=== PATIENT | female | born 1945 | race Caucasian/White ===

== ENCOUNTER → 2022-06-11 14:44 | Outpatient (CLI) | payer MEDICARE, BC, SELFPAY ==
[2022-06-11 16:02] LABS: Adenovirus F 40/41, stool Not Detected (NotDetected); Astrovirus Not Detected (NotDetected); Campylobacter Not Detected (NotDetected); Clostridium Difficile A/B, PCR Not Detected (NotDetected); Cryptosporidium Not Detected (NotDetected); Cyclospora Cayetanesis Not Detected (NotDetected); Entamoeba histolytica Not Detected (NotDetected); Enteroaggregative E coli Not Detected (NotDetected); Enteropathogenic E coli Not Detected (NotDetected); Enterotoxigenic E coli Not Detected (NotDetected); Giardia lamblia Not Detected (NotDetected); Norovirus Not Detected (NotDetected); Plesimonas Shigalloides, PCR Not Detected (NotDetected); Rotavirus A Not Detected (NotDetected); Salmonella, PCR Not Detected (NotDetected); Sapovirus Not Detected (NotDetected); Shiga-like toxin E coli Not Detected (NotDetected); Shigella Enterovasive E coli Not Detected (NotDetected); Vibrio Cholerae Not Detected (NotDetected); Vibrio, PCR Not Detected (NotDetected); Yersinia Entercolitica, PCR Not Detected (NotDetected)
== END ==
PROVIDERS: PCP Nurse Practitioner Family; Visit Provider Nurse Practitioner Family
DX: R19.7 Diarrhea, unspecified (principal)
CPT/HCPCS: 87506

== ENCOUNTER 2022-06-14 11:59 | Emergency (ER) | payer MEDICARE, MEDICAID, SELFPAY ==
[2022-06-14] VITALS (20 sets, daily range): BP systolic 125–161; BP diastolic 58–93; PULSE 50–88; RESP 16–19; TEMP 36.6–37; O2SAT 92–98; BMI 31.8
--- NOTE | 2022-06-14 12:09 | CT_ITS ---
FINAL REPORT CLINICAL HISTORY: diffuse abdominal pain FINDINGS: CT OF THE ABDOMEN AND PELVIS WITH CONTRAST Axial CT images of the abdomen and pelvis were obtained after the administration of intravenous contrast. Coronal reformatted images were also obtained and reviewed.This study was performed with techniques to keep radiation doses as low as reasonably achievable (ALARA). Individualized dose reduction techniques using automated exposure control or adjustment of mA and/or kV according to the patient's size were employed. Abdomen: There is a small left pleural effusion. There is left lung base atelectasis.. The heart is normal in size. The liver has an a lobular contour of uncertain significance. There is a 5.5 cm lobular mass between the stomach and spleen containing multiple calcifications that is nonspecific. There has been cholecystectomy. The spleen is unremarkable. No adrenal mass is present. The pancreas has an unremarkable appearance. There are bilateral renal cysts. The aorta is normal in caliber. There is no free fluid or adenopathy. Pelvis: The appendix is not identified. There has been hysterectomy. There is a moderate amount of retained stool. The urinary bladder is unremarkable. No inflammatory process is seen. There is no evidence of mass or adenopathy. There is no evidence of bowel obstruction. IMPRESSION: Lobular mass between the stomach and spleen worrisome for neoplasm. Lobular contour of the liver of uncertain significance. Cirrhosis cannot be excluded. Bilateral renal cysts. Moderate retained stool. Reviewed, Interpreted and Dictated by Luis Armando Damico III, MD Transcribed by Kunal Vigil Authenticated and [facility]
--- NOTE | 2022-06-14 12:32 | PC.NURSE ---
calling [facility] for abd records
--- NOTE | 2022-06-14 12:35 | PC.NURSE ---
IV established and blood sent to the lab
--- NOTE | 2022-06-14 12:40 | PC.NURSE ---
spoke with nurse at [facility] who updated on specialist appts and update on care. notified
--- NOTE | 2022-06-14 12:42 | PC.NURSE ---
pt medicated per MAR
[2022-06-14 12:48] LABS: Basophils # 0.1 K/mm3 (0-0.2); Basophils % 1.1 % (0.1-2.0); Eosinophils # 0.4 K/mm3 (0.0-0.4); Eosinophils % 3.7 % (0.1-12.0); Hematocrit 40.7 % (37.0-47.0); Hemoglobin 12.8 g/dL (12.2-16.2); Lymphocytes % 19.6 % (10-50); Mean Corpuscular HGB Conc 31.4 g/dL (31.8-35.4); Mean Corpuscular Hemoglobin 26.6 pg (27.0-31.2); Mean Corpuscular Volume 84.9 fl (81-99); Mean Platelet Volume 10.8 fl (7.4-10.4); Monocytes # 0.4 K/mm3 (0.1-1.0); Monocytes % 3.7 % (1.7-9.3); Neutrophils # 7.5 K/mm3 (1.8-7.8); Neutrophils % 71.9 % (37.0-80.0); Platelet Count 266 K/mm3 (142-424); Red Blood Count 4.79 M/mm3 (4.20-5.40); Red Cell Distribution Width 14.8 % (11.5-17.5); White Blood Count 10.4 K/mm3 (4.8-10.8)
--- NOTE | 2022-06-14 12:59 | PC.NURSE ---
awaiting renal function for CT
[2022-06-14 13:25] LABS: Chloride 100 mmol/L (98-107); Potassium 5.3 mmoL/L (3.5-5.1); Sodium 137 mmol/L (136-145)
[2022-06-14 13:28] LABS: Alanine Aminotransferase 27 U/L (12-78); Albumin Level 3.8 g/dl (3.5-5.0); Albumin/Globulin Ratio 1.3 (1.1-1.8); Alkaline Phosphatase 121 U/L (38-126); Anion Gap 14.3 mEq/L (5-15); Aspartate Amino Transferase 42 U/L (14-36); Bilirubin,Total 0.2 mg/dl (0.2-1.3); Blood Urea Nitrogen 22 mg/dl (7-17); Calcium 8.8 mg/dl (8.4-10.2); Carbon Dioxide 28 mmol/L (22.0-30.0); Creatinine Clearance Estimated 62 mL/min (50-200); Estimated Glomerular Filt Rate 70 ml/min (>60); GFR (African American) 84 ML/MIN (>60); Glucose 280 mg/dl (74-100); Lipase 52 U/L (23-300); Total Protein,Serum 6.8 g/dl (6.3-8.2)
--- NOTE | 2022-06-14 13:39 | PC.NURSE ---
PT GOING TO CT VIA STRETCHER
--- NOTE | 2022-06-14 15:23 | HMH.EDGENADL ---
Discharge Plan Disposition Patient Disposition: Xfer SNF Condition: Good Prescriptions Prescriptions: New docusate sodium 250 mg capsule 250 mg PO DAILY Qty: 30 0RF polyethylene glycol 3350 [Miralax] 17 gram/dose powder 17 g PO DAILY Qty: 238 0RF Referrals Follow up/Referrals: Kavita Nicole MD [Staff Physician] - See instructions Armando Levi [Referring] - 7-14 days Alberta Costa APRN [Primary Care Provider] - 7-14 days Activity Restrictions/Add. Instructions Additional Instructions/Restrictions: Follow up with your PCP and Oncology (Dr. Nicole) for the stomach mass. Return with any concerns. Use the stool regimen for constipation Clinical Impressions Clinical Impression: Constipation, Intraabdominal mass Instructions Patient Instructions: Constipation (Alternative Therapy), Constipation Discharge ED Provider: Michelle Guy General Adult HPI General Chief complaint: Abdominal Pain Stated complaint: Abdominal Pain Time Seen by Provider: 06/14/22 12:10 Mode of Arrival: EMS Source of Information: Patient Limitations: No Limitations Description of Symptoms (Recalled from ER Triage Doc. by RN): pt to ed via ems c/o abd pain. pt states she has stomach cancer and was supposed to see the GI specialist today but her grandaughter couldn't take her so she wanted to come to [facility]. pt denies n/v/d. pt reports pain in her lower abd. History of Present Illness HPI narrative: The patient is a 77 year old female with a history of HTN who presents to the ED with abdominal pain. She states for the past 2-3 days shes had diffuse abdominal pain. Denies nausea or vomiting. She has been having normal bowel movements. Denies urinary symptoms. No chest pain or shortness of breath. No other symptoms. She has been told she has a stomach cancer but has not had follow up for that yet. Related Data Previous Rx's Medication Instructions Recorded docusate sodium 250 mg capsule 250 mg PO DAILY #30 caps 06/14/22 polyethylene glycol 3350 17 17 g PO DAILY #238 grams 06/14/22 gram/dose oral powder (Miralax) Allergies Allergy/AdvReac Type Severity Reaction Status Date / Time butorphanol [From Stadol] Allergy Verified 06/14/22 12:28 [facility] Medical History Dementia Diabetes GERD (gastroesophageal reflux disease) High cholesterol Hypertension Social History Smoking Status: Never smoker alcohol intake: never current occupational status: unemployed Travel in the last 8 weeks: None ROS Obtained: Yes Systems reviewed as appropriate & no additional complaints except as documented Physical Exam General General appearance: alert and in no apparent distress Head Head exam: atraumatic and normocephalic Eye Eye exam: Present normal appearance and EOMI ENT ENT exam: Present normal external ear exam Neck Neck exam: Present normal inspection Chest Chest inspection: Present normal inspection and symmetric chest wall rise Respiratory Respiratory exam: Present normal lung sounds bilaterally; Absent respiratory distress Cardiovascular Cardiovascular exam: Present regular rate and normal rhythm Abdominal Exam Abdominal exam: Present soft and tenderness; Absent distention, guarding, rebound or mass Abdominal tenderness: Present diffuse and mild Extremities Exam Extremities exam: Present normal inspection and full ROM Back Exam Back exam: Present normal inspection; Absent CVA tenderness (R) or CVA tenderness (L) Neurological Exam Neurological exam: Present alert, oriented X3 and CN II-XII intact Psychiatric Psychiatric exam: Present normal affect and normal mood Skin Skin exam: Present warm and dry Medical Decision Making Medical Records Medical records reviewed: Yes I reviewed the patient's medical records. Srinivas Inquiry Pt receiving controlled substance: No Vital Signs: 06/14/22 12:22
--- NOTE | 2022-06-14 19:23 | PC.NURSE ---
transport has been called for pt. ems reports they need pre-authorization before they can come get pt.
--- NOTE | 2022-06-14 20:56 | PC.NURSE ---
Pt family called and advised they would come and get pt POV. EMS notified.
== END 2022-06-14 21:42 ==
PROVIDERS: Emergency Provider Emergency Medicine; PCP Nurse Practitioner Family
DX: C16.9 Malignant neoplasm of stomach, unspecified (principal); K59.00 Constipation, unspecified; I10 Essential (primary) hypertension; K21.9 Gastro-esophageal reflux disease without esophagitis; E78.5 Hyperlipidemia, unspecified; E11.9 Type 2 diabetes mellitus without complications; F03.90 Unspecified dementia, unspecified severity, without behavioral disturbance, psychotic disturbance, mood disturbance, and anxiety; Z88.8 Allergy status to other drugs, medicaments and biological substances
CPT/HCPCS: 74177; 80053; 83690; 85025; 96374; 99285; J2405; Q9967

== ENCOUNTER → 2022-08-22 14:08 | Outpatient (CLI) | payer MEDICARE, MEDICAID, SELFPAY ==
--- NOTE | 2022-08-22 14:14 | XR_ITS ---
FINAL REPORT CLINICAL HISTORY: hip pain FINDINGS: Left hip Three views were obtained. There is no acute fracture or dislocation. There are moderate hypertrophic changes. There is flattening of the femoral head. There is subchondral sclerosis and osteophyte formation at the acetabular margin. IMPRESSION: Moderate to advanced hypertrophic changes of osteoarthritis. Reviewed, Interpreted and Dictated by Dany Cueva MD Transcribed by Violeta Sweeney Authenticated and [facility]
== END ==
PROVIDERS: PCP Emergency Medicine; Visit Provider Orthopaedic Surgery
DX: M25.552 Pain in left hip (principal)
CPT/HCPCS: 73502

== ENCOUNTER → 2022-09-04 06:22 | Outpatient (CLI) | payer MEDICARE, MEDICAID, SELFPAY ==
--- NOTE | 2022-09-04 06:23 | NM_ITS ---
APPROVED REPORT Exam: Nuclear Stress Test Indication: HTN, D.M., FM HX, SOB Patient Location: Outpatient Stress Tech: Dana Paris NM Tech:Mendy Vasquez, ARRT, RT (R)(N) Ht: 5 ft 0 in Wt: 180 lbs Bra Size: 38B HR: 65 bpm BP: 155/74 mmHg BSA: 1.78 m2 TID: 0.95 History: HTN, D.M., FM HX, SOB PT COULD NOT LAY IN PRONE POSITION DUE TO STROKE Procedure: Patient received a 0.4 mg of intravenous Lexiscan, resting heart rate 65 bpm, resting blood pressure 155/74 mmHg, with Lexiscan maximum heart rate achived was 99 bpm which is Less than 85 % of the maximum predicted heart rate and blood pressure was 178/76 mmHg. With Lexiscan, patient denied any complaint of chest pain. Electrocardiogram Resting electrocardiogram shows sinus rhythm, with Lexiscan there is less than 1.[address] segment depression noted from the baseline EKG. The EKG portion of the Lexiscan is nondiagnostic. Cardiac Stress and Resting SPECT Images: Cardiac Stress and Resting SPECT images were obtained using technetium 99m Myoview 32.4 mCi stress and 10.78 mCi at rest. Gated SPECT for analysis of segmental wall motion and calculation of the ejection fraction also done. Prone images were also obtained. Cardiac stress and rest SPECT images show uniform myocardial activity without segmental perfusion abnormality, computer derived ejection fraction is over 65% with no regional wall motion abnormality, right ventricle is normal size and contractility. Conclusion: 1. The EKG portion of the Lexiscan is nondiagnostic. 2. No scintigraphic evidence of reversible ischemia seen, computer derived ejection fraction is over 65% with no regional wall motion abnormality, right ventricle is normal size and contractility. 3. Normal Lexiscan Myoview study. Electronically signed by : Pranav Draper MD 09/04/2022 12:52:24
--- NOTE | 2022-09-04 06:23 | CA_ITS ---
APPROVED REPORT Exam: Pharmacologic Technologist: Trista Toledo, Ht: 4 ft 11 in Wt: 192 lbs BSA: 1.81 m2 HR: 67 bpm BP: 155/74 mmHg Medical History Medications: Omeprazole,,,,, Metoprolol,,,,, Lispro,,,,, Gabapentin,,,,, Atorvastatin,,,,, Benazepril,,,,, MiraLAX,,,,, LanTUS,,,,, DilTiazem,,,,, Apixaban,,,,, MonteKULAST,,,,, DApaqliflozin,,,,, Stress Test Details Test: LEXISCAN Reason for pharmacologic stress test: physical limitation. HR Resting HR: 66 bpm Max Heart Rate (APMHR): 144.318497 bpm Max HR Achieved: 99 bpm Target HR (85% APMHR): 122.176340 bpm % of APMHR: 68.75 Recovery HR: 84 bpm BP Resting BP: 155/74 mmHg Max BP: 178/76 mmHg Recovery BP: 146.0/74.0 mmHg ECG Resting ECG: NSR, low voltage QRS Clinical Exercise duration: 04:10 min Highest Stage Achieved: Exercise capacity: 1.0 METs Stress ECG Conclusion Symptoms: SOA, head discomfort. No CP. Arrhythmias/Ectopy: Occ PAC. ST-T Changes: No significant changes. Conclusion: Unremarkable Lexiscan stress. Myoview images reported separately. Test Summary REST 04:30 . . 66 . 155/ 74 . . Stage 1 01:00 . . 86 . . . . Stage 2 01:00 . . 93 . 164/ 81 . . Stage 3 01:00 . . 89 . . . . Stage 4 01:00 . . 83 . 178/ 76 . . Stage 4 01:10 . . 83 . 160/ 83 . Stop exercise at 04:10 RECOVERY 01:00 . . 83 . . . . RECOVERY 02:00 . . 85 . 157/ 81 . . RECOVERY 03:00 . . 81 . 157/ 81 . . RECOVERY 03:16 . . 81 . 146/ 74 . . Electronically signed by : Pranav Draper MD 09/04/2022 12:49:49
--- NOTE | 2022-09-04 08:12 | HMH.ITSHM ---
Current Home Medications as stated by this patient Angeli Spencer or escrow representative. []ATORVASTATIN BENAZEPRIL DILTIAZEM FARXIGA LANTUS LASIX MIRALAX MONTELUKAST OMEPRAZOLE POTASSIUM APIXABAN METOPROLOL GABAPENTIN HUMALOG GAVISCON ALBUTEROL LOPERAMIDE NOVOLIN
== END ==
PROVIDERS: PCP Nurse Practitioner Family; Visit Provider Physician Assistant
DX: E11.9 Type 2 diabetes mellitus without complications (principal); E78.00 Pure hypercholesterolemia, unspecified; I10 Essential (primary) hypertension; I48.0 Paroxysmal atrial fibrillation; I63.9 Cerebral infarction, unspecified; K21.9 Gastro-esophageal reflux disease without esophagitis; R19.00 Intra-abdominal and pelvic swelling, mass and lump, unspecified site; R60.9 Edema, unspecified; Z01.810 Encounter for preprocedural cardiovascular examination; Z79.4 Long term (current) use of insulin
CPT/HCPCS: 78452; 93017; A9502; J2785

== ENCOUNTER 2022-09-16 10:54 | Day surgery (SDC) | payer MEDICARE, MEDICAID, SELFPAY ==
[2022-09-16 11:19] VITALS: BP 169/99; PULSE 82; RESP 18; TEMP 36.4; O2SAT 95; BMI 38.7
--- NOTE | 2022-09-16 11:36 | EXP.ANES.CKL ---
[facility] Disclaimer: The information contained in this section may have been updated after the patient was seen, as this information can be updated by other users. Medical History (Updated 09/16/22 @ 11:43 by Gely Costa RN) Allergies Arthritis Cannot walk Cholecystectomy planned Dementia Diabetes Edema GERD (gastroesophageal reflux disease) High cholesterol History of COVID-19 Hypertension Kidney stone Stroke Urinary incontinence Surgical History (Updated 09/16/22 @ 11:43 by Gely Costa RN) History of appendectomy Hx of knee surgery Family History (Updated 09/16/22 @ 11:39 by Gely Costa RN) Other Hypertension Social History (Updated 09/16/22 @ 11:39 by Gely Costa RN) Smoking Status: Never smoker alcohol intake: never substance use type: denies use current occupational status: unemployed Travel in the last 8 weeks: None [facility] Anesthesia Checklist Patient Identification Patient Identification: Arm Band and Verbal (Name & ) Structural Data Admitted From: Home Planned Operative Procedure/s: Hip injection Consent for Planned Operative Procedure(s) Verified: Yes NPO Status Verified Time NPO: 00:00 Airway Assessment C-Spine Mobility Assessed: Yes TMJ Mobility Assessed: Yes Dentition: Poor Dentition Neurological Assessment Level of Consciousness: Awake Hx Seizures: No Numbness or tingling in extremities: No Anesthesia Plan Anesthesia Risk discussed: Yes Anesthesia Plan: Verified ASA Class: III Anesthesia Type: MAC
[2022-09-16 13:16] VITALS: BP 119/63; PULSE 74; RESP 18; TEMP 36.7; O2SAT 96
--- NOTE | 2022-09-16 13:20 | XR_ITS ---
FINAL REPORT CLINICAL HISTORY: HIP INJECTION IN OR ft: 1.24 FINDINGS: FLUORO TIME PROCEDURE: Right hip injection in OR FINDINGS: Fluoroscopy time was provided by the radiology department for the clinical service. One spot film was obtained. Fluoroscopy exposure time: 1.24 IMPRESSION: See above Reviewed, Interpreted and Dictated by Luis Armando Damico III, MD Transcribed by Sakina Grant Authenticated and [facility]
--- NOTE | 2022-09-16 13:27 | EXP.OP.NOTE ---
Date of procedure: 09/16/22 Pre-op Diagnosis:: Right hip osteoarthritis Post-op Diagnosis:: Same Procedure performed:: Right hip injection with arthrogram Surgeon:: Anthony Liang DO ADVERTISEMENT COMPOSITOR:: Dariana Young Anesthesia: MAC Estimated blood loss (mL): 0 Operative findings:: Severe end-stage osteoarthritis right hip Operative note:: Patient is identified preoperatively. Right hip marked yes my initials. Transferred operative suite. Placed upon on the radiolucent bed. Sedation given. Right hip prepped and draped in normal sterile fashion. Once prepped and draped final operative timeout performed to identify proper patient procedure and extremity. X-ray was brought into identify the right hip joint. 18-gauge spinal needle directed to the hip joint with proper trajectory. Arthrogram performed to confirm needle placement. Once confirmed 3 cc lidocaine 80 mg of Kenalog injected to the hip joint. Needle removed Band-Aid placed patient was taken to stepdown in stable condition. Condition: stable Disposition: PACU Complications:: None apparent
[2022-09-16 13:30] VITALS: BP 144/77; PULSE 71; RESP 18; O2SAT 97
[2022-09-16 13:45] VITALS: BP 139/74; PULSE 72; RESP 18; O2SAT 72
[2022-09-17 08:47] LABS: POC Glucose,Bedside 213 (70-110)
== END 2022-09-16 13:45 | disposition home or self-care (01) ==
PROVIDERS: PCP Emergency Medicine; Visit Provider Orthopaedic Surgery
PROC: (CPT 20610; principal; 2022-09-16 12:30)
DX: M16.11 Unilateral primary osteoarthritis, right hip (principal); E11.9 Type 2 diabetes mellitus without complications; Z79.4 Long term (current) use of insulin; I48.0 Paroxysmal atrial fibrillation; E78.5 Hyperlipidemia, unspecified; I10 Essential (primary) hypertension; Z79.01 Long term (current) use of anticoagulants; Z79.899 Other long term (current) drug therapy; F01.50 Vascular dementia, unspecified severity, without behavioral disturbance, psychotic disturbance, mood disturbance, and anxiety; I69.392 Facial weakness following cerebral infarction; I69.351 Hemiplegia and hemiparesis following cerebral infarction affecting right dominant side
CPT/HCPCS: 20610; 73502; 76000; 82962; 96374; Q9967

== ENCOUNTER → 2022-10-01 07:09 | Outpatient (CLI) | payer MEDICARE, MEDICAID, SELFPAY ==
[2022-10-01 08:30] LABS: Potassium 5.1 mmoL/L (3.5-5.1); Sodium 137 mmol/L (136-145)
[2022-10-01 08:31] LABS: Chloride 104 mmol/L (98-107)
[2022-10-01 08:33] LABS: Anion Gap 13.1 mEq/L (5-15); Blood Urea Nitrogen 38 mg/dl (7-17); Carbon Dioxide 25 mmol/L (22.0-30.0); Estimated Glomerular Filt Rate 81 ml/min (>60); GFR (African American) 98 ML/MIN (>60)
[2022-10-01 08:34] LABS: Calcium 10.3 mg/dl (8.4-10.2); Glucose 277 mg/dl (74-100)
[2022-10-01 11:41] LABS: Microscopic, Urine URINE MICROSCOPIC (MICROSCOPIC)
[2022-10-01 12:35] LABS: Appearance,Urine CLOUDY (Clear); Bilirubin,Urine Negative (Negative); Blood, Urine 3+ (Negative); Color,Urine YELLOW (Yellow); Glucose,Urine (UA) 3+ (Negative); Ketones,Urine Negative (Negative); Leukocyte Esterase,Urine 2+ (Negative); Nitrate,Urine POSITIVE (Negative); PH,Urine 6.5 (5.0-8.5); Protein,Urine Negative (Negative); Urobilinogen,Urine 0.2 EU/dl (0.2)
[2022-10-01 12:58] LABS: Bacteria,Urine 1+ /lpf; Squamous Epithelial Cell,Urine Occasional #/hpf (0-5); WBC,Urine 50-100 #/hpf (0-3); White Blood Cell Casts,Urine Occasional #/lpf (0)
== END ==
PROVIDERS: PCP Nurse Practitioner Family; Visit Provider Internal Medicine Adolescent Medicine
DX: I10 Essential (primary) hypertension (principal); N39.0 Urinary tract infection, site not specified; B96.1 Klebsiella pneumoniae [K. pneumoniae] as the cause of diseases classified elsewhere; B96.4 Proteus (mirabilis) (morganii) as the cause of diseases classified elsewhere
CPT/HCPCS: 80048; 81001; 87086; 87088; 87186

== ENCOUNTER → 2022-10-01 11:29 | Outpatient (CLI) | payer MEDICARE, MEDICAID, SELFPAY | PROVIDERS: PCP Internal Medicine Adolescent Medicine; Visit Provider Internal Medicine Adolescent Medicine | DX: I10 Essential (primary) hypertension (principal); N39.0 Urinary tract infection, site not specified ==

== ENCOUNTER → 2022-10-28 06:32 | Outpatient (CLI) | payer MEDICARE, MEDICAID, SELFPAY ==
--- NOTE | 2022-10-28 06:39 | CT_ITS ---
FINAL REPORT TECHNIQUE: Thin section axial images were obtained from the lung bases to the pubic symphysis without IV contrast. Coronal reconstruction images were obtained from the axial data. Exam was performed using dose reduction technique. CLINICAL HISTORY: GROSS HEMATURIA COMPARISON: 06/14/2022 FINDINGS: The lung bases are clear. The liver is nodular in contour consistent with cirrhosis. There is no focal hepatic lesion. The gallbladder is absent. The spleen, adrenal glands, and pancreas are without acute abnormality. There is a large staghorn calculus in the right kidney measuring 5.7 cm in axial dimension. There is mild hydronephrosis related to this calculus. There is no left renal stone or hydronephrosis. A soft tissue mass containing calcifications is seen between the stomach and splenic hilum. This is unchanged as compared to the prior exam. There is no small bowel obstruction. The appendix is not visualized but there are no secondary signs of appendicitis. There is a large amount of stool in the colon, particularly the rectum. There is mild rectal wall thickening which could represent stercoral colitis. The uterus is absent. There is no lymphadenopathy or ascites. No acute osseous abnormality is identified. IMPRESSION: Large staghorn calculus in the right kidney, new from the prior exam, causing hydronephrosis. Constipation and distal colonic wall thickening. Stercoral colitis is not excluded. Stable, partially calcified mass between this stomach and spleen may represent neoplasm such as GIST. Reviewed, Interpreted and Dictated by Amira Ortiz MD Transcribed by Trang Hogue Authenticated and [facility]
== END ==
PROVIDERS: PCP Internal Medicine Adolescent Medicine; Visit Provider Nurse Practitioner Family
DX: R31.0 Gross hematuria (principal)
CPT/HCPCS: 74176

== ENCOUNTER 2022-10-28 08:09 | Day surgery (SDC) | payer MEDICARE, MEDICAID, SELFPAY ==
[2022-10-28 08:33] VITALS: BP 174/121; PULSE 79; RESP 18; TEMP 36.6; O2SAT 96; BMI 38.7
[2022-10-28 09:09] LABS: POC Glucose,Bedside 198 (70-110)
--- NOTE | 2022-10-28 09:30 | EXP.ANES.CKL ---
[facility] Disclaimer: The information contained in this section may have been updated after the patient was seen, as this information can be updated by other users. Medical History Afib Allergies Aphasia Arthritis Cannot walk Cholecystectomy planned Constipation Dementia Diabetes Edema GERD (gastroesophageal reflux disease) High cholesterol History of COVID-19 Hypertension Kidney stone Obesity Stroke Urinary incontinence Vascular dementia Surgical History History of appendectomy Hx of knee surgery Family History Other Hypertension Social History Smoking Status: Never smoker alcohol intake: never substance use type: denies use current occupational status: unemployed Travel in the last 8 weeks: None [facility] Anesthesia Checklist Patient Identification Patient Identification: Arm Band Structural Data Admitted From: Home Planned Operative Procedure/s: Left Hip Injection under Fluoroscopy Consent for Planned Operative Procedure(s) Verified: Yes Verified Documents: Surgical Consent and History and Physical NPO Status Verified Time NPO: 00:00 Additional verifications Anesthesia Reactions: No Hx Blood Transfusions: No Blood Transfusion Reaction: No Airway Assessment C-Spine Mobility Assessed: Yes TMJ Mobility Assessed: Yes Dentition: Poor Dentition Neurological Assessment Level of Consciousness: Awake and Alert Anesthesia Plan Anesthesia Risk discussed: Yes Anesthesia Plan: Verified ASA Class: III Anesthesia Type: MAC
--- NOTE | 2022-10-28 10:48 | EXP.OP.NOTE ---
Date of procedure: 10/28/22 Pre-op Diagnosis:: Left hip end-stage osteoarthritis Post-op Diagnosis:: Same Procedure performed:: Left hip injection with arthrogram Surgeon:: Anthony Liang DO RETAIL PHARMACY MANAGER:: Mesfin Krueger Anesthesia: MAC Estimated blood loss (mL): 0 Clinical Note:: Patient underwent previous right hip injection with arthrogram and had good clinical results and wished to undergo left hip injection for therapeutic reasons secondary to end-stage osteoarthritis and not a candidate for total hip arthroplasty. Operative findings:: End-stage degenerative arthritis left hip Operative note:: Patient is identified preoperatively left hip marked yes my initials transported operative suite placed upon the radiolucent bed given sedation left hip was prepped and draped normal sterile fashion. Once prepped and draped final operative timeout performed to identify proper patient procedure and extremity. Everyone involved in case agreed. No counter indication to beginning. X-ray machine was brought into identify the hip joint. There was evidence of severe end-stage degenerative changes. Under direct visualization 18-gauge spinal needle was directed into the hip capsule. Contrast was used to confirm placement within the hip capsule. Initial injection site was low on the neck and extra-articular so the needle was repositioned and placed inside the capsule and contrast confirmed intra-articular placement of the needle and then 80 mg of Kenalog with 3 cc of 1% lidocaine was injected to the hip joint needle removed Band-Aid placed patient waken for sedation taken recovery in stable condition. Condition: stable Disposition: PACU Complications:: None apparent
[2022-10-28 10:50] VITALS: BP 125/85; PULSE 87; RESP 18; TEMP 36.3; O2SAT 97
--- NOTE | 2022-10-28 10:50 | XR_ITS ---
FINAL REPORT CLINICAL HISTORY: LEFT HIP INJECTION IN OR, ft 0.1min FINDINGS: FLUORO TIME PROCEDURE: Fluoroscopy in the operating room. FINDINGS: Fluoroscopy time was provided by the radiology department for the clinical service. 1 film lungs obtained for left hip injection. Fluoroscopy exposure time: 0.1 minute IMPRESSION: See above Reviewed, Interpreted and Dictated by Amira Ortiz MD Transcribed by Trang Hogue Authenticated and . [facility]
[2022-10-28 11:00] VITALS: BP 149/88; PULSE 87; RESP 18; O2SAT 96
[2022-10-28 11:10] VITALS: BP 133/93; PULSE 89; RESP 18; O2SAT 97
[2022-10-28 11:20] VITALS: BP 154/88; PULSE 86; RESP 18; O2SAT 98
== END 2022-10-28 11:21 | disposition home or self-care (01) ==
PROVIDERS: PCP Internal Medicine Adolescent Medicine; Visit Provider Orthopaedic Surgery
DX: M16.12 Unilateral primary osteoarthritis, left hip (principal); E11.9 Type 2 diabetes mellitus without complications; Z79.4 Long term (current) use of insulin; I10 Essential (primary) hypertension; Z86.16 Personal history of COVID-19; I48.91 Unspecified atrial fibrillation; Z79.01 Long term (current) use of anticoagulants; Z79.899 Other long term (current) drug therapy
CPT/HCPCS: 20610; 73502; 74176; 82962

== ENCOUNTER 2022-11-11 05:25 | Inpatient (IN) | payer MEDICARE, MEDICAID, SELFPAY ==
[2022-11-11] VITALS (7 sets, daily range): BP systolic 100–157; BP diastolic 50–98; PULSE 94–129; RESP 18–22; TEMP 36.4–39.9; O2SAT 93–98; BMI 28.3; BMI 32.4
--- NOTE | 2022-11-11 05:29 | XR_ITS ---
PROCEDURE INFORMATION: Exam: XR Chest Exam date and time: 11/11/2022 7:27 AM Age: 77 years old Clinical indication: Fever TECHNIQUE: Imaging protocol: Radiologic exam of the chest. Views: 1 view. COMPARISON: CT ABDOMEN PELVIS WO CON 10/28/2022 6:45 AM FINDINGS: Lungs: Lungs are well aerated without a focal area of consolidation. Pleural spaces: Unremarkable. No pleural effusion. No pneumothorax. Heart/Mediastinum: Unremarkable. No cardiomegaly. Bones/joints: Unremarkable. IMPRESSION: Lungs are well aerated without a focal area of consolidation.
[2022-11-11 05:41] LABS: Coronavirus 19, PCR Not Detected (NotDetected); Influenza A, PCR Not Detected (NotDetected); Influenza B, PCR Not Detected (NotDetected)
[2022-11-11 05:41] LABS: Microscopic, Urine URINE MICROSCOPIC (MICROSCOPIC)
[2022-11-11 05:43] LABS: Appearance,Urine CLOUDY (Clear); Bilirubin,Urine Negative (Negative); Blood, Urine 1+ (Negative); Color,Urine YELLOW (Yellow); Glucose,Urine (UA) 3+ (Negative); Ketones,Urine Negative (Negative); Leukocyte Esterase,Urine 2+ (Negative); Nitrate,Urine POSITIVE (Negative); Protein,Urine 2+ (Negative); Specific Gravity, Urine 1.015 (1.005-1.030); Urobilinogen,Urine 0.2 EU/dl (0.2)
[2022-11-11 06:09] LABS: Bacteria,Urine 3+ /lpf; WBC,Urine TNTC #/hpf (0-3)
[2022-11-11 06:10] LABS: Squamous Epithelial Cell,Urine Occasional #/hpf (0-5)
--- NOTE | 2022-11-11 06:21 | PC.NURSE ---
Rechecked pt condition. No needs voiced at this time. Call light within reach.
[2022-11-11 06:38] LABS: Basophils % 0.2 % (0.1-2.0); Eosinophils # 0.1 K/mm3 (0.0-0.4); Eosinophils % 0.6 % (0.1-12.0); Hematocrit 40.8 % (37.0-47.0); Hemoglobin 13.1 g/dL (12.2-16.2); Lymphocytes # 0.9 K/mm3 (0.7-4.5); Mean Corpuscular Volume 84.5 fl (81-99); Mean Platelet Volume 8.8 fl (7.4-10.4); Monocytes # 0.9 K/mm3 (0.1-1.0); Neutrophils # 16.1 K/mm3 (1.8-7.8); Neutrophils % 89.2 % (37.0-80.0); Platelet Count 284 K/mm3 (142-424); Red Blood Count 4.83 M/mm3 (4.20-5.40); Red Cell Distribution Width 15.3 % (11.5-17.5)
[2022-11-11 06:44] LABS: MANUAL DIFFERENTIAL MANUAL DIFFERENTIAL (MANUAL DIFF)
--- NOTE | 2022-11-11 06:44 | PC.NURSE ---
Dr. Baca at [facility] speaking with pt
[2022-11-11 06:47] LABS: Hypochromasia 1+; Lymphocytes % 6 % (10-50); Monocytes % 3 % (2-9); Neutrophils % 91 % (42-76); Platelet Estimate Normal; Total Cells Counted 100
[2022-11-11 06:49] LABS: Chloride 107 mmol/L (98-107); Potassium 4.2 mmoL/L (3.5-5.1); Sodium 138 mmol/L (136-145)
[2022-11-11 06:51] LABS: Alanine Aminotransferase 35 U/L (12-78); Amylase 49 U/L (30-110); Aspartate Amino Transferase 34 U/L (14-36); Blood Urea Nitrogen 34 mg/dl (7-17); Creatinine Clearance Estimated 42 mL/min (50-200); Estimated Glomerular Filt Rate 40 ml/min (>60); GFR (African American) 48 ML/MIN (>60)
[2022-11-11 06:52] LABS: Albumin Level 3.7 g/dl (3.5-5.0); Alkaline Phosphatase 152 U/L (38-126); Anion Gap 13.2 mEq/L (5-15); Bilirubin,Total 1.1 mg/dl (0.2-1.3); Calcium 9.1 mg/dl (8.4-10.2); Carbon Dioxide 22 mmol/L (22.0-30.0); Globulin 3.6 g/dL (1.3-3.2); Glucose 205 mg/dl (74-100); Lactic Acid 1.3 mmol/L (0.7-2.1); Lipase 53 U/L (23-300); Total Protein,Serum 7.3 g/dl (6.3-8.2)
[2022-11-11 06:57] LABS: C-Reactive Protein 47.7 mg/L (0-4); Erythrocyte Sedimentation Rate 13 mm/hr (0-30)
--- NOTE | 2022-11-11 07:04 | PC.NURSE ---
Dr. Baca speaking with Dr. Franks
--- NOTE | 2022-11-11 07:07 | HMH.EDNVD ---
Discharge Plan Disposition Patient Disposition: Admitted As Inpatient Chief Complaint: Nausea/Vomiting/Diarrhea Prescriptions Prescriptions: No Action furosemide [Lasix] 40 mg tablet 40 mg PO DAILY atorvastatin 40 mg tablet 40 mg PO HS insulin glargine [Lantus U-100 Insulin] 100 unit/mL solution 42 unit SQ HS diltiazem HCl 120 mg capsule,extended release 12 hr 120 mg PO ONCE omeprazole 20 mg capsule,delayed release(DR/EC) 20 mg PO DAILY montelukast 10 mg tablet 10 mg PO HS benazepril 10 mg tablet 10 mg PO DAILY Farxiga 10 mg tablet 10 mg PO DAILY Eliquis 5 mg tablet 5 mg PO BID metoprolol tartrate 75 mg tablet 75 mg PO BID gabapentin 400 mg capsule 400 mg PO TID insulin lispro [Humalog KwikPen Insulin] 100 unit/mL insulin pen 1 sliding scale dose SQ USEASDIRECTD acetaminophen [Tylenol] 325 mg Capsule 500 mg PO BID potassium chloride 20 mEq Tablet Extended Release 20 meq PO DAILY Rx Instructions: GIVE 2 TABLETSPO DAILY polyethylene glycol 3350 [Miralax] 17 gram/dose powder 17 g PO DAILY docusate sodium 250 mg capsule 250 mg PO DAILY Referrals Follow up/Referrals: Parish Franks MD [Primary Care Provider] - See instructions Clinical Impressions Clinical Impression: Diabetes, Acute UTI (urinary tract infection), SIRS (systemic inflammatory response syndrome) Instructions Patient Instructions: DI for Nausea -- Adult, DI for Nausea -- Child, DI for Diarrhea and Traveler's Diarrhea -- Adult, DI for Diarrhea and Traveler's Diarrhea -- Child Discharge ED Provider: Keven (ED)Jostin Nausea/Vomiting/Diarrhea HPI General Chief complaint: Nausea/Vomiting/Diarrhea Stated complaint: vomitting Time Seen by Provider: 11/11/22 06:40 Mode of Arrival: EMS Source of Information: EMS Limitations: No Limitations Description of Symptoms (Recalled from ER Triage Doc. by RN): per shelter pt was vomitting, fever, low o2 sats History of Present Illness HPI Narrative: sent from f with fever and vomiting complaint: vomiting Onset (ago): hour(s) Associated Abdominal Pain: No Severity: moderate Related Data Home Medications Medication Instructions Recorded Confirmed apixaban 5 mg tablet (Eliquis) 5 mg PO BID BLOOD THINER 08/08/22 10/31/22 atorvastatin 40 mg tablet 40 mg PO HS Cholesterol 08/08/22 10/31/22 benazepril 10 mg tablet 10 mg PO DAILY BP 08/08/22 10/31/22 dapagliflozin 10 mg tablet 10 mg PO DAILY Diabetes 08/08/22 10/31/22 (Farxiga) diltiazem HCl 120 mg 120 mg PO ONCE BP 08/08/22 10/31/22 capsule,extended release 12 hr furosemide 40 mg tablet (Lasix) 40 mg PO DAILY Fluid 08/08/22 10/31/22 gabapentin 400 mg capsule 400 mg PO TID Pain 08/08/22 10/31/22 insulin glargine 100 unit/mL 42 unit SQ HS Diabetes 08/08/22 10/31/22 subcutaneous solution (Lantus U-100 Insulin) insulin lispro 100 unit/mL 1 sliding scale dose SQ 08/08/22 10/31/22 subcutaneous pen (Humalog KwikPen USEASDIRECTD Diabetes (U-100) Insulin) metoprolol tartrate 75 mg tablet 75 mg PO BID BP 08/08/22 10/31/22 montelukast 10 mg tablet 10 mg PO HS ALLERGIES 08/08/22 10/31/22 omeprazole 20 mg capsule,delayed 20 mg PO DAILY GERD 08/08/22 10/31/22 release acetaminophen 325 mg capsule 500 mg PO BID Pain 09/16/22 10/31/22 (Tylenol) docusate sodium 250 mg capsule 250 mg PO DAILY BOWELS 09/16/22 10/31/22 polyethylene glycol 3350 17 17 g PO DAILY CONSTIPATION 09/16/22 10/31/22 gram/dose oral powder (Miralax) potassium chloride 20 mEq 20 meq PO DAILY Supplement 09/16/22 10/31/22 tablet,extended release Allergies Allergy/AdvReac Type Severity Reaction Status Date / Time butorphanol [From Stadol] Allergy Anxiety Verified 10/31/22 10:23 [facility] Disclaimer: The information contained in this section may have been updated after the patient was seen, as this information can be updated by other users.
[2022-11-11 07:15] LABS: Procalcitonin 0.672 ng/mL (0.0-2.0)
--- NOTE | 2022-11-11 07:15 | PC.NURSE ---
pt family member , Ann, notified of admission and treatment per patient request.
--- NOTE | 2022-11-11 07:34 | PC.NURSE ---
attempted to give report, nurse busy at this time. states she will call right back
--- NOTE | 2022-11-11 07:42 | PC.NURSE ---
REPORT GIVEN TO VENITA RN
--- NOTE | 2022-11-11 08:08 | PC.NURSE ---
SRNA's x 2 at BS to transfer patient to the floor
--- NOTE | 2022-11-11 08:10 | PC.NURSE ---
PT TRANSFERRED TO [facility] AT THIS TIME
--- NOTE | 2022-11-11 08:13 | PC.NURSE ---
pt arrived to floor via stretcher
--- NOTE | 2022-11-11 08:25 | P.CONPHA_ITS ---
Pharmacy Intervention Comments: MEDICATION RECONCILIATION COMPLETED ON PATIENT USING MAR FROM [facility]. -KARTIK ISAAC, BLAYNED
--- NOTE | 2022-11-11 08:25 | HMH.PHAINT1 ---
Pharmacy Intervention Comments: MEDICATION RECONCILIATION COMPLETED ON PATIENT USING MAR FROM [facility]. -KARTIK ISAAC, BLAYNED
--- NOTE | 2022-11-11 08:57 | EXP.HP ---
History of Present Illness *Admission Date: 11/11/22 *Reason for visit:: Vomiting, diarrhea and fever *History of present illness: 77-year-old white female with history of chronic debility, chronic osteoarthritis and recurrent UTI who has a known large right staghorn calculi in the right renal pelvis. She is a resident of a local long-term care facility and began to have vomiting, diarrhea and some fever over the last 24 hours. She was brought to the ER and found to have evidence of UTI, and met SIRS criteria. Admitted to hospital for IV fluids and antibiotics. [facility] Disclaimer: The information contained in this section may have been updated after the patient was seen, as this information can be updated by other users. Medical History Afib Allergies Aphasia Arthritis Cannot walk Cholecystectomy planned Constipation Dementia Diabetes Edema GERD (gastroesophageal reflux disease) High cholesterol History of COVID-19 Hypertension Kidney stone Obesity Stroke Urinary incontinence Vascular dementia Surgical History History of appendectomy Hx of knee surgery RIGHT KNEE Family History Other Hypertension Social History (Updated 11/11/22 @ 08:46 by Georgie Begum RN) Smoking Status: Unknown if ever smoked alcohol intake: never substance use type: denies use current occupational status: unemployed Travel in the last 8 weeks: None Review of Systems Review of Systems Review of systems:: pertinent systems reviewed and negative unless documented below Meds Home Medications and Allergies Home Medications Medication Instructions Recorded Confirmed Type apixaban 5 mg tablet (Eliquis) 5 mg PO BID HX OF CEREBRAL 08/08/22 11/11/22 History INFARCTION atorvastatin 40 mg tablet 40 mg PO HS Cholesterol 08/08/22 11/11/22 History benazepril 10 mg tablet 10 mg PO DAILY Hypertension 08/08/22 11/11/22 History dapagliflozin 10 mg tablet 10 mg PO DAILY Diabetes 08/08/22 11/11/22 History (Randee) diltiazem HCl 120 mg 120 mg PO DAILY HEART RATE 08/08/22 11/11/22 History capsule,extended release 12 hr furosemide 40 mg tablet (Lasix) 40 mg PO DAILY Fluid 08/08/22 11/11/22 History gabapentin 400 mg capsule 400 mg PO TID Pain 08/08/22 11/11/22 History insulin glargine 100 unit/mL 50 unit SQ HS Diabetes 08/08/22 11/11/22 History subcutaneous solution (Lantus U-100 Insulin) insulin lispro 100 unit/mL 6 unit SQ AC Diabetes 08/08/22 11/11/22 History subcutaneous pen (Humalog KwikPen (U-100) Insulin) metoprolol tartrate 75 mg tablet 75 mg PO BID Hypertension 08/08/22 11/11/22 History montelukast 10 mg tablet 10 mg PO HS ALLERGIES 08/08/22 11/11/22 History omeprazole 20 mg capsule,delayed 20 mg PO HS GERD 08/08/22 11/11/22 History release docusate sodium 250 mg capsule 250 mg PO DAILY CONSTIPATION 09/16/22 11/11/22 History polyethylene glycol 3350 17 17 g PO DAILY CONSTIPATION 09/16/22 11/11/22 History gram/dose oral powder (Miralax) potassium chloride 20 mEq 40 meq PO DAILY Supplement 09/16/22 11/11/22 History tablet,extended release acetaminophen 500 mg tablet 500 mg PO BID Pain 11/11/22 11/11/22 History (Acetaminophen Extra Strength) aluminum hydrox-magnesium carb 95 15 ml PO Q4HP PRN Indigestion 11/11/22 11/11/22 History mg-358 mg/15 mL oral suspension (Gaviscon) melatonin 5 mg tablet 5 mg PO HSP PRN Sleep 11/11/22 11/11/22 History New Prescriptions to Start Prescriptions: Allergies Allergy/AdvReac Type Severity Reaction Status Date / Time butorphanol [From Stadol] Allergy Anxiety Verified 10/31/22 10:23 Exam Data for Last 24 hours Vital signs and Labs for Last 24 Hours: Temp Pulse Resp BP Pulse Ox 97.5 F L 96 H 18 101/55 L 97 11/11/22 08:47 11/11/22 08:47 11/11/22 08:47 11/11/22
--- NOTE | 2022-11-11 09:44 | SW/DCPLANNER ---
Addendum entered by Echo Maurice RN 11/14/22 13:33: Patient will return to today. Earnestine at agreeable. Original Note: This patient currently resides at [facility] level of care per Earnestine. I will continue to follow up with Earnestine and fax updated patient information. Discharge date is unknown at this time.
[2022-11-11 11:57] LABS: POC Glucose,Bedside 169 (70-110)
--- NOTE | 2022-11-11 15:58 | PC.NURSE ---
Dr. Franks made aware of blood in urine and patient's symptoms of shivering and nausea. No fever noted, 98.5 oral.
--- NOTE | 2022-11-11 16:14 | ECG_ITS ---
APPROVED REPORT Exam: Resting ECG HR:121 bpm ECG Measurements Heart Rate 121 AXES ID 203 P 80 QRSd 78 QRS 67 QT 281 T 56 QTc 353 Conclusion SINUS TACHYCARDIA ABNORMAL RHYTHM ECG UNCONFIRMED REPORT Electronically signed by : Parish Franks MD 11/12/2022 20:22:53
[2022-11-11 16:57] LABS: POC Glucose,Bedside 228 (70-110)
--- NOTE | 2022-11-11 18:20 | PC.NURSE ---
VS stable, urine cleared to yellow color but still cloudy. Patient still alert and oriented and shaking has stopped. No other changes noted.
[2022-11-11 21:48] LABS: POC Glucose,Bedside 144 (70-110)
[2022-11-12] VITALS (9 sets, daily range): BP systolic 94–161; BP diastolic 55–88; PULSE 91–136; RESP 16–20; TEMP 36.4–39.3; O2SAT 94–97; BMI 32.7
[2022-11-12 05:50] LABS: POC Glucose,Bedside 159 (70-110)
--- NOTE | 2022-11-12 05:54 | PC.NURSE ---
No c/o voiced to staff. urine has remained yellow with sediment t/o night. Pt has slept majority of shift. Pt has been q2 turned and bed alarm on for pt safety. Call light within reach.
[2022-11-12 06:35] LABS: Basophils % 0.3 % (0.1-2.0); Eosinophils # 0.1 K/mm3 (0.0-0.4); Eosinophils % 0.7 % (0.1-12.0); Hematocrit 32.6 % (37.0-47.0); Hemoglobin 10.5 g/dL (12.2-16.2); Lymphocytes # 1.2 K/mm3 (0.7-4.5); Lymphocytes % 9.4 % (10-50); Mean Corpuscular HGB Conc 32.3 g/dL (31.8-35.4); Mean Corpuscular Hemoglobin 27.4 pg (27.0-31.2); Mean Corpuscular Volume 84.9 fl (81-99); Mean Platelet Volume 9.1 fl (7.4-10.4); Monocytes # 0.5 K/mm3 (0.1-1.0); Monocytes % 3.9 % (1.7-9.3); Neutrophils # 11.1 K/mm3 (1.8-7.8); Neutrophils % 85.6 % (37.0-80.0); Platelet Count 198 K/mm3 (142-424); Red Blood Count 3.84 M/mm3 (4.20-5.40); Red Cell Distribution Width 15.3 % (11.5-17.5)
[2022-11-12 06:43] LABS: Chloride 113 mmol/L (98-107)
[2022-11-12 06:44] LABS: Potassium 3.7 mmoL/L (3.5-5.1); Sodium 139 mmol/L (136-145)
[2022-11-12 06:47] LABS: Anion Gap 9.7 mEq/L (5-15); Blood Urea Nitrogen 31 mg/dl (7-17); Calcium 8.3 mg/dl (8.4-10.2); Carbon Dioxide 20 mmol/L (22.0-30.0); Creatinine Clearance Estimated 63 mL/min (50-200); Estimated Glomerular Filt Rate 54 ml/min (>60); GFR (African American) 65 ML/MIN (>60); Glucose 151 mg/dl (74-100); MANUAL DIFFERENTIAL MANUAL DIFFERENTIAL (MANUAL DIFF)
[2022-11-12 07:46] LABS: Lymphocytes % 9 % (10-50); Monocytes % 3 % (2-9); Neutrophils % 88 % (42-76); Platelet Estimate Normal; RBC Morphology Normal; Total Cells Counted 100
--- NOTE | 2022-11-12 08:26 | XR_ITS ---
FINAL REPORT CLINICAL HISTORY: abd distension FINDINGS: Chest: A single view of the chest demonstrates chronic changes in the lung bases. Abdomen: Flat and upright views of the abdomen demonstrate a large amount a gas in a redundant colon. There are no abnormally dilated loops of small bowel. There is no free air. IMPRESSION: Large amount of gas in a redundant colon. Reviewed, Interpreted and Dictated by Dany Cueva MD Transcribed by Kunal Vigil Authenticated and [facility]
--- NOTE | 2022-11-12 08:27 | EXP.ACUTE.PN ---
Subjective *Date: 11/12/22 *Time: 08:27 Interval history: Overall patient feels a little better than yesterday. Had some shaking chills yesterday and a little episode of hematuria but this is improving. She reports that she feels a little bit of abdominal swelling, but has been eating fairly well. Had a bowel movement yesterday. Medical Exam Vital signs and Labs for Last 24 Hours: Vital Signs Temp Pulse Resp BP Pulse Ox 11/12/22 04:00 97.5 F L 91 H 16 104/61 L 97 11/11/22 19:41 99.4 F 109 H 20 100/53 L 93 L 11/11/22 15:57 99.9 F H 129 H 22 152/98 H 94 L 11/11/22 08:47 97.5 F L 96 H 18 101/55 L 97 Intake and Output 11/11/22 11/12/22 11/12/22 19:59 03:59 11:59 Intake Total 1498 / 2837 240 / 2837 1099 / 2837 Output Total 500 / 1250 0 / 1250 750 / 1250 Balance 998 / 1587 240 / 1587 349 / 1587 Intake: Intake, Oral Amount 600 / 840 240 / 840 Intake, Total IV Amount 1996 0.9 % Sodium Chloride 1,000 ml 1996 @ 100 mls/hr IV .Q10H [facility] Rx#: [id number] Output: Output, Urine Amount 0 / 750 0 / 750 750 / 750 Output, Urine Amount (Catheter) 500 / 500 Lea 500 / 500 Other: Number of Unmeasured Voids 0 0 0 Weight 182 lb 15.739 oz 184 lb 9 oz Patient Weight 11/12/22 11:59 Weight 184 lb 9 oz Laboratory Results - last 24 hr 11/11/22 11:01: POC Glucose 169 H 11/11/22 16:31: POC Glucose 228 H 11/11/22 21:30: POC Glucose 144 H 11/12/22 05:44: POC Glucose 159 H 11/12/22 06:20: WBC 13.0 H D, RBC 3.84 L, Hgb 10.5 L, Hct 32.6 L, MCV 84.9, MCH 27.4, MCHC 32.3, RDW 15.3, Plt Count 198 D, MPV 9.1, Neut % (Auto) 85.6 H, Lymph % (Auto) 9.4 L, Elmore % (Auto) 3.9, Eos % (Auto) 0.7, Baso % (Auto) 0.3, Neut # (Auto) 11.1 H, Lymph # (Auto) 1.2, Elmore # (Auto) 0.5, Eos # (Auto) 0.1, Baso # (Auto) 0.0, Total Counted 100, Neutrophils % (Manual) 88 H, Lymphocytes % (Manual) 9 L, Monocytes % (Manual) 3, Platelet Estimate Normal, RBC Morphology Normal 11/12/22 06:20: Sodium 139, Potassium 3.7, Chloride 113 H, Carbon Dioxide 20 L, Anion Gap 9.7, BUN 31 H, Creatinine 1.00 D, Estimated Creat Clear 63, Estimated GFR 54 L, Est GFR ( Amer) 65 D, Glucose 151 H, Calcium 8.3 L I & O for Labs for Last 24 Hours: Intake & Output 11/09/22 11/10/22 11/11/22 11/12/22 11:59 11:59 11:59 11:59 Intake Total 2837 / 2837 Output Total 0 / 0 1250 / 1250 Balance 0 / 0 1587 / 1587 Weight 183 lb 4 oz 184 lb 9 oz Microbiology Reports for the Last 24 Hours: Microbiology 11/11/22 05:31 Urine,Clean Catch Urine Culture - Preliminary NO GROWTH AFTER 24 HOURS Comment:: Pleasant, alert. Previously noted neurologic deficit. Abdomen soft, slight distention noted. Normal bowel sounds. Lungs clear, heart rate regular. Lea catheter draining draining yellow urine with sediment. Assessment and Plan *Assessment and plan (1) Acute UTI (urinary tract infection): Status: Acute Category: Medical Code(s): N39.0 - Urinary tract infection, site not specified (2) SIRS (systemic inflammatory response syndrome): Status: Acute Category: Medical Code(s): R65.10 - Systemic inflammatory response syndrome (SIRS) of non-infectious origin without acute organ dysfunction Plan High risk for UTI-check cultures. Previous cultures have shown sensitivity to Rocephin I will do this with close observation. Patient does need staghorn calculi removed, we will work on this as an outpatient. SIRS-patient feels better already, continue fluids, home medications. Plan update on 11/12/2022-patient improving. Await cultures. Will try to get urology evaluation as an outpatient for removal of staghorn calculi.
--- NOTE | 2022-11-12 09:38 | PC.NURSE ---
wishes to keep schwab in place at this time.
--- NOTE | 2022-11-12 11:10 | XR_ITS ---
FINAL REPORT CLINICAL HISTORY: Confirm PICC line placement COMPARISON: November 11, 2022 FINDINGS: A left-sided PICC line terminates in the SVC. The heart size is normal. The mediastinum is within normal limits. There is no acute cardiopulmonary process. There is no pleural effusion. There is no pneumothorax. The bony thorax is intact. IMPRESSION: PICC line terminates in the SVC. Reviewed, Interpreted and Dictated by Dany Cueva MD Transcribed by Kunal Vigil Authenticated and [facility]
[2022-11-12 12:30] LABS: POC Glucose,Bedside 160 (70-110)
[2022-11-12 17:19] LABS: POC Glucose,Bedside 140 (70-110)
--- NOTE | 2022-11-12 17:29 | PC.NURSE ---
Pt is alert and oriented x4. She had a fever of 102.8 in the am, tylenol administered and MD notified. Temp was 99.8 on reassessment. Her schwab is to bedside draining cloudy, yellow urine. She had 1 BM today. Excoriation noted to abd/groin folds. Nystatin applied per mar. Glucose was 160 and 140 at checks. Family has called and been updated on poc. Bed is locked and in the lowest position, call light is within reach.
--- NOTE | 2022-11-12 19:50 | PC.NURSE ---
MELISAS notified this RN of pt HR of 136 at this time.
--- NOTE | 2022-11-12 19:59 | ECG_ITS ---
APPROVED REPORT Exam: Resting ECG HR:126 bpm ECG Measurements Heart Rate 126 AXES QRSd 85 QRS 28 QT 294 T -13 QTc 369 Conclusion ATRIAL FIBRILLATION WITH RAPID VENTRICULAR RESPONSE LOW QRS VOLTAGE IN PRECORDIAL LEADS [QRS DEFLECTION < 1.0 mV IN CHEST LEADS] MODERATE ST DEPRESSION [0.05+ mV ST DEPRESSION] ABNORMAL ECG UNCONFIRMED REPORT Electronically signed by : Parish Franks MD 11/13/2022 21:28:12
--- NOTE | 2022-11-12 20:21 | PC.NURSE ---
Addendum entered by Lexus Aguayo RN 11/12/22 20:32: Manual HR irregular. EKG shows pt rhythm in Afib RVR with rate of 126 Original Note: 1950 Manual HR of 120 palpated. 1958 EKG obtained 1904 EKG taken down to ER to be confirmed 1908 banquet server on call paged at this time.
--- NOTE | 2022-11-12 20:23 | PC.NURSE ---
Spoke with Dilan BURRELL at this time, states to administer pt home meds Metoprolol 75mg PO once, Diltiazem 120mg PO once. Sent fax to pharmacy.
[2022-11-13] VITALS (8 sets, daily range): BP systolic 108–153; BP diastolic 65–92; PULSE 63–134; RESP 16–22; TEMP 36.3–36.8; O2SAT 95–97; BMI 33.9
--- NOTE | 2022-11-13 06:46 | PC.NURSE ---
Pt has remained A fib t/o night. HR 90-115. Pt asymptomatic. No c/o voiced to staff. Lea in place. No hematuria noted t/o shift. Urine cloudy and yellow. Bed alarm on for pt safety. q2 turned. Call light within reach.
[2022-11-13 07:59] LABS: POC Glucose,Bedside 161 (70-110)
[2022-11-13 07:59] LABS: POC Glucose,Bedside 134 (70-110)
[2022-11-13 08:02] LABS: Basophils % 0.4 % (0.1-2.0); Eosinophils # 0.1 K/mm3 (0.0-0.4); Eosinophils % 1.3 % (0.1-12.0); Hematocrit 34.3 % (37.0-47.0); Hemoglobin 10.8 g/dL (12.2-16.2); Lymphocytes # 1.8 K/mm3 (0.7-4.5); Mean Corpuscular HGB Conc 31.4 g/dL (31.8-35.4); Mean Corpuscular Hemoglobin 27.3 pg (27.0-31.2); Mean Corpuscular Volume 87.2 fl (81-99); Mean Platelet Volume 8.8 fl (7.4-10.4); Monocytes # 0.5 K/mm3 (0.1-1.0); Monocytes % 4.4 % (1.7-9.3); Neutrophils % 76.9 % (37.0-80.0); Platelet Count 209 K/mm3 (142-424); Red Blood Count 3.94 M/mm3 (4.20-5.40); Red Cell Distribution Width 15.4 % (11.5-17.5); White Blood Count 10.4 K/mm3 (4.8-10.8)
[2022-11-13 08:07] LABS: Chloride 115 mmol/L (98-107)
[2022-11-13 08:08] LABS: Potassium 3.4 mmoL/L (3.5-5.1); Sodium 142 mmol/L (136-145)
[2022-11-13 08:10] LABS: Blood Urea Nitrogen 23 mg/dl (7-17)
[2022-11-13 08:11] LABS: Anion Gap 11.4 mEq/L (5-15); Calcium 8.4 mg/dl (8.4-10.2); Carbon Dioxide 19 mmol/L (22.0-30.0); Creatinine Clearance Estimated 66 mL/min (50-200); Estimated Glomerular Filt Rate 81 ml/min (>60); GFR (African American) 98 ML/MIN (>60); Glucose 130 mg/dl (74-100)
--- NOTE | 2022-11-13 08:37 | EXP.ACUTE.PN ---
Subjective *Date: 11/13/22 *Time: 08:37 Interval history: Overall patient feels better. Has not been out of bed, has a little bit of loose stools. No fevers. Medical Exam Vital signs and Labs for Last 24 Hours: Vital Signs Temp Pulse Pulse Resp BP Pulse Ox 11/13/22 07:25 98.2 F 63 18 112/85 97 11/13/22 04:00 100 H 11/12/22 20:00 100 H 11/13/22 00:00 100 H 11/13/22 04:00 97.7 F 116 H 20 108/65 L 95 11/12/22 20:00 120 H 95 11/12/22 23:54 98.1 F 106 H 20 94/59 L 95 11/12/22 23:22 94 H 11/12/22 21:54 104 H 11/12/22 20:00 98.3 F 136 H 16 107/68 L 95 11/12/22 11:05 99.8 F H 11/12/22 15:42 98.4 F 101 H 16 106/55 L 94 L 11/12/22 09:28 102.8 F H Intake and Output 11/12/22 11/13/22 11/13/22 19:59 03:59 11:59 Intake Total 1170 / 1170 0 / 1170 Output Total 900 / 1750 600 / 1750 250 / 1750 Balance 270 / -580 -600 / -580 -250 / -580 Intake: Intake, Oral Amount 240 / 240 0 / 240 Intake, Total IV Amount 930 / 930 0.9 % Sodium Chloride 1,000 ml 930 / 930 @ 100 mls/hr IV .Q10H [facility] Rx#: [id number] Output: Output, Urine Amount 0 / 850 600 / 850 250 / 850 Output, Urine Amount (Catheter) 900 / 900 Lea 900 / 900 Other: Number of Unmeasured Voids 1 0 0 Number of Bowel Movements 1 1 Weight 191 lb 8 oz Patient Weight 11/13/22 11:59 Weight 191 lb 8 oz Laboratory Results - last 24 hr 11/11/22 05:31: Urine Color Yellow, Urine Appearance Cloudy, Urine pH 7.0, Ur Specific Potter 1.015, Urine Protein 2+, Urine Glucose (UA) 3+, Urine Ketones Negative, Urine Blood 1+, Urine Nitrate Positive, Urine Bilirubin Negative, Urine Urobilinogen 0.2, Ur Leukocyte Esterase 2+ A, Urine RBC 3-5, Urine WBC Tntc, Ur Squamous Epith Cells Occasional, Urine Bacteria 3+ 11/12/22 12:22: POC Glucose 160 H 11/12/22 17:06: POC Glucose 140 H 11/12/22 22:26: POC Glucose 161 H 11/13/22 07:50: WBC 10.4, RBC 3.94 L, Hgb 10.8 L, Hct 34.3 L, MCV 87.2, MCH 27.3, MCHC 31.4 L, RDW 15.4, Plt Count 209, MPV 8.8, Neut % (Auto) 76.9, Lymph % (Auto) 17.0, Rooks % (Auto) 4.4, Eos % (Auto) 1.3, Baso % (Auto) 0.4, Neut # (Auto) 8.0 H, Lymph # (Auto) 1.8, Rooks # (Auto) 0.5, Eos # (Auto) 0.1, Baso # (Auto) 0.0 11/13/22 07:50: Sodium 142, Potassium 3.4 L, Chloride 115 H, Carbon Dioxide 19 L, Anion Gap 11.4, BUN 23 H D, Creatinine 0.70 D, Estimated Creat Clear 66, Estimated GFR 81, Est GFR ( Amer) 98 D, Glucose 130 H, Calcium 8.4 11/13/22 07:50: POC Glucose 134 H I & O for Labs for Last 24 Hours: Intake & Output 11/10/22 11/11/22 11/12/22 11/13/22 11:59 11:59 11:59 11:59 Intake Total 3077 / 3077 1170 / 1170 Output Total 0 / 0 1250 / 1250 1750 / 1750 Balance 0 / 0 1827 / 1827 -580 / -580 Weight 183 lb 4 oz 184 lb 9 oz 191 lb 8 oz Microbiology Reports for the Last 24 Hours: Microbiology 11/11/22 05:34 Blood Blood Culture - Preliminary Gram Negative Rods 11/11/22 05:31 Urine,Clean Catch Urine Culture - Final Proteus mirabilis 11/11/22 05:34 Blood Blood Culture - Preliminary NO GROWTH AFTER 48 HOURS Comment:: Previous neurologic damage unchanged. Alert and pleasant. Lungs clear, heart rate regular. Abdomen mildly distended but soft. Lea catheter is draining clear yellow urine. Assessment and Plan *Assessment and plan (1) Acute UTI (urinary tract infection): Status: Acute Category: Medical Code(s): N39.0 - Urinary tract infection, site not specified (2) SIRS (systemic inflammatory response syndrome): Status: Acute Category: Medical Code(s): R65.10 - Systemic inflammatory response syndrome (SIRS) of non-infectious origin without acute organ dysfunction (3) Bacteremia: Status: Acute Category: Medical Code(s): R78.81 - Bacteremia Plan High risk for UTI-
--- NOTE | 2022-11-13 09:45 | HMH.OTEV ---
OT Inpatient Evaluation Rehab OT IP Evaluation Start: 11/13/22 08:17 Freq: ONCE Status: Active Protocol: Document 11/13/22 09:28 [facility] (Rec: 11/13/22 09:45 [facility] [id number]) Rehab OT IP Assessment Subjective History Pt was seen receiving a bedside bath upon arrivial from nursing staff. After bath was completed, pt was agreeable to engage in therapy inital evaluation. Pt was oriented x3 person, place, and . Pt was admitted to [facility] on 11/11/22 due to Vomiting, diarrhea and fever. Before arrivial, [facility] where she required assistance with all ADLs and IADLs. Pt reports that she was able to feed herself independently prior. During evaluation, therapist observed contractures and swelling at lower extremities. Pt reports that she required two nursing staff at the long- term care to transfer her to eob. Pt has a past medical history of the following: Afib Allergies Aphasia Arthritis Cannot walk Cholecystectomy planned Constipation Dementia Diabetes Edema GERD (gastroesophageal reflux disease) High cholesterol History of COVID-19 Hypertension Kidney stone Obesity Stroke Urinary incontinence Vascular dementia Pt was left resting in bed with call beltran and all other needs within reach. Subjective I'm just so nervous. Objective Patient Orientation Person,Place,Birthday [place]
--- NOTE | 2022-11-13 09:57 | HMH.PTEV ---
Physical Therapy Evaluation Rehab PT IP Evaluation Start: 11/13/22 08:17 Freq: ONCE Status: Active Protocol: Document 11/13/22 09:46 NICKI (Rec: 11/13/22 09:57 [id number] [id number]) Subjective/History History History 77 yowf adm to [facility] with UTI and SIRS. She is a resident of SNF and is basically dependent for all mobility at baseline. She does not ambulate at all and has not for quite some time. Subjective Subjective Pt with no c/o this am. Rehab PT IP Eval Objective Appearance Patient Behavior Appropriate Patient Orientation Person,Place,Time Difficulty following instructions none Speech Pattern Clear Ambulation Patient Able to Ambulate No Balance Ability to Arise Unable Sitting Balance Leans or slides in chair Dynamic Sitting Balance Ability Poor Transfers Bed Transfer Ability Total/Dependent (100%) Chair Transfer Ability Total/Dependent (100%) ROM RLE PT ROM Status ABN Abnormal ROM Comment contractions noted throughout LLE PT ROM Status ABN Abnormal ROM Comment contractions noted throughout Rehab PT IP prob,goals,plan Problems Date of Evaluation: 11/13/22 PT IP Problems Bed Mobility,Transfers Rehab Potential Rehab Potential Fair Plan PT Intervention Plan Bed Mobility,Transfers, Therapeutic Exercise PT Plan Frequency Daily Duration LOS Discharge Goals Bed Transfer Ability Maximum x 2 (75% assist) Discharge Plan PT Discharge Plan Pt is currently most appropriate to return to SNF once medically stable for d/c. G -code Required No Eval Complexity Eval Charge Codes 50216 - High Complexity PHYSICIAN CERTIFICATION: I certify the specified therapy services for Angeli Spencer are required, authorized, and reviewed every 30 days.
[2022-11-13 12:17] LABS: POC Glucose,Bedside 125 (70-110)
[2022-11-13 17:02] LABS: POC Glucose,Bedside 140 (70-110)
--- NOTE | 2022-11-13 18:40 | PC.NURSE ---
pt has rested intermittently t/o shift, no complaints of pain or SOA, zaheer D/C this shift, remains on room air, turned Q2
--- NOTE | 2022-11-13 20:14 | PC.NURSE ---
Golden aware that pt's HR was reported to be 134. Checked again and now 118.
[2022-11-13 22:10] LABS: POC Glucose,Bedside 141 (70-110)
--- NOTE | 2022-11-13 23:59 | PC.NURSE ---
Pt's left radial pulse was checked with a irregular hr and pulse of 101.
[2022-11-14 03:47] LABS: POC Glucose,Bedside 142 (70-110)
--- NOTE | 2022-11-14 03:57 | PC.NURSE ---
Called to patient's room because she was feeling shaky. VSS AND fsbg of 142, 120/86, P: 130, T: 97.3, RR 22, 93% on RA. Ordered EKG per Denise charge's suggestion.
[2022-11-14 04:00] VITALS: BP 120/86; PULSE 130; RESP 22; TEMP 36.3; O2SAT 93; BMI 34.4
--- NOTE | 2022-11-14 04:00 | ECG_ITS ---
APPROVED REPORT Exam: Resting ECG HR:139 bpm ECG Measurements Heart Rate 139 AXES QRSd 86 QRS 48 QT 293 T -24 QTc 374 Conclusion ATRIAL FIBRILLATION WITH RAPID VENTRICULAR RESPONSE LOW QRS VOLTAGE IN PRECORDIAL LEADS [QRS DEFLECTION < 1.0 mV IN CHEST LEADS] POSSIBLE ANTERIOR MYOCARDIAL INFARCTION , PROBABLY OLD [30 ms Q WAVE IN V3/V4, OR R < 0.2 mV IN V4] ABNORMAL RHYTHM ECG UNCONFIRMED REPORT Electronically signed by : Parish Franks MD 11/14/2022 07:59:49
--- NOTE | 2022-11-14 04:47 | PC.NURSE ---
Pt's ekg shows afib with rvr as previous ekg. Hr is 139 on EKG. No other changes noted.
[2022-11-14 07:25] VITALS: BP 130/78; PULSE 126; RESP 17; TEMP 36.6; O2SAT 98
[2022-11-14 07:39] LABS: Basophils % 0.2 % (0.1-2.0); Eosinophils # 0.1 K/mm3 (0.0-0.4); Eosinophils % 1.4 % (0.1-12.0); Hematocrit 39.6 % (37.0-47.0); Hemoglobin 11.9 g/dL (12.2-16.2); Lymphocytes # 1.4 K/mm3 (0.7-4.5); Lymphocytes % 17.1 % (10-50); Mean Corpuscular HGB Conc 30.1 g/dL (31.8-35.4); Mean Corpuscular Hemoglobin 26.5 pg (27.0-31.2); Mean Platelet Volume 9.6 fl (7.4-10.4); Monocytes # 0.4 K/mm3 (0.1-1.0); Monocytes % 4.3 % (1.7-9.3); Neutrophils # 6.2 K/mm3 (1.8-7.8); Neutrophils % 76.9 % (37.0-80.0); Platelet Count 225 K/mm3 (142-424); Red Cell Distribution Width 15.1 % (11.5-17.5)
[2022-11-14 07:49] LABS: Chloride 115 mmol/L (98-107); Potassium 3.3 mmoL/L (3.5-5.1); Sodium 141 mmol/L (136-145)
[2022-11-14 07:52] LABS: Anion Gap 16.3 mEq/L (5-15); Blood Urea Nitrogen 15 mg/dl (7-17); Calcium 8.7 mg/dl (8.4-10.2); Carbon Dioxide 13 mmol/L (22.0-30.0); Creatinine Clearance Estimated 67 mL/min (50-200); Estimated Glomerular Filt Rate 97 ml/min (>60); GFR (African American) 118 ML/MIN (>60); Glucose 157 mg/dl (74-100)
[2022-11-14 07:58] VITALS: O2SAT 98
[2022-11-14 10:52] VITALS: BP 156/91; PULSE 125; RESP 18; TEMP 36.5; O2SAT 97
[2022-11-14 11:11] LABS: POC Glucose,Bedside 149 (70-110)
[2022-11-14 13:03] VITALS: BP 130/87; PULSE 82; RESP 18; O2SAT 97
--- NOTE | 2022-11-14 13:19 | EXP.DC.SUM ---
General Admission date:: 11/11/22 Discharge date: 11/14/22 HPI HPI HPI: 77-year-old white female with history of chronic debility, chronic osteoarthritis and recurrent UTI who has a known large right staghorn calculi in the right renal pelvis. She is a resident of a local long-term care facility and began to have vomiting, diarrhea and some fever over the last 24 hours. She was brought to the ER and found to have evidence of UTI, and met SIRS criteria. Admitted to hospital for IV fluids and antibiotics. Hospital Course Hospital Course Hospital Course: Patient was admitted to hospital. Ceftriaxone was started because of her SIRS and evidence of UTI. Urine culture grew gram-negative rods and turned out to be Proteus, sensitive to ceftriaxone. She was found to have positive blood cultures, also for Proteus, identical sensitivity panels and ceftriaxone was changed to 2 g IV daily for sepsis dosing. PICC line is placed in the left arm. She did have an exacerbation of her atrial fibrillation with RVR but with the reinstitution of her home medications her heart rate improved today. She was back to her baseline in regards to eating and drinking. Lea catheter was able to be discontinued and she will be transferred back to her nursing facility today. She will continue 2 g of ceftriaxone IV daily for the next 12 days to finish out a 2-week course. She has been noted to have a new right staghorn calculus in her right renal pelvis and this is presumably the source of the ongoing Proteus infections. We have made her an appointment with Dr. Luis Armando Charlton in [place] on November 26 to evaluate for surgical removal of the calculus. Exam Data for Last 24 hours Vital signs and Labs for Last 24 Hours: Temp Pulse Resp BP Pulse Ox 97.7 F 82 18 130/87 97 11/14/22 10:52 11/14/22 13:03 11/14/22 13:03 11/14/22 13:03 11/14/22 13:03 Laboratory Results - last 24 hr 11/13/22 16:56: POC Glucose 140 H 11/13/22 21:58: POC Glucose 141 H 11/14/22 03:40: POC Glucose 142 H 11/14/22 06:40: WBC 8.0, RBC 4.50, Hgb 11.9 L D, Hct 39.6, MCV 88.0, MCH 26.5 L, MCHC 30.1 L, RDW 15.1, Plt Count 225, MPV 9.6, Neut % (Auto) 76.9, Lymph % (Auto) 17.1, [place] % (Auto) 4.3, Eos % (Auto) 1.4, Baso % (Auto) 0.2, Neut # (Auto) 6.2, Lymph # (Auto) 1.4, [place] # (Auto) 0.4, Eos # (Auto) 0.1, Baso # (Auto) 0.0 11/14/22 06:40: Sodium 141, Potassium 3.3 L, Chloride 115 H, Carbon Dioxide 13 L, Anion Gap 16.3 H, BUN 15 D, Creatinine 0.60, Estimated Creat Clear 67, Estimated GFR 97, Est GFR ( Amer) 118 D, Glucose 157 H D, Calcium 8.7 11/14/22 10:58: POC Glucose 149 H I & O for Last 24 hours: Intake & Output 11/12/22 11/13/22 11/14/22 11/15/22 11:59 11:59 11:59 11:59 Intake Total 3077 / 3077 1170 / 1170 2436 / 2436 120 / 120 Output Total 1250 / 1250 2350 / 2350 0 / 0 Balance 1827 / 1827 -1180 / -1180 2436 / 2436 120 / 120 Weight 184 lb 9 oz 191 lb 8 oz 194 lb 4.8 oz Microbiology Reports for the Last 24 Hours: Microbiology 11/11/22 05:34 Blood Blood Culture - Preliminary Gram Negative Rods 11/11/22 05:34 Blood Blood Culture - Preliminary Proteus mirabilis Constitutional Constitutional: no acute distress *Routine HEENT Exam Head: Present normocephalic Eye: Present EOMI and PERRL ENT: Present mucous membranes moist *Routine Neck Exam Neck: Present supple; Absent lymphadenopathy *Routine Respiratory Exam Respiratory: Present CTA bilaterally *Routine Cardiovascular Exam Cardiovascular: Present RRR *Routine Abdominal Exam Abdominal: Present soft and normoactive bowel sounds; Absent tenderness *Routine Extremities Exam Extremities: Absent cyanosis, clubbing or edema *Routine Skin Exam Skin: Present warm; Absent rash *Routine Neurological Exam Neurological: Present alert, oriented X3 and CN II-XII intact Comments: Previously noted hemiparesis. Unchanged over baseline Result
[2022-11-14 13:58] LABS: Coronavirus 19, PCR Not Detected (NotDetected); Influenza A, PCR Not Detected (NotDetected); Influenza B, PCR Not Detected (NotDetected)
--- NOTE | 2022-11-14 15:04 | PC.NURSE ---
fluid totals are midnight shift and today
--- NOTE | 2022-11-15 13:50 | CARE MANAGER ---
Contacted [facility] related to hospital discharge. Nurse states she is doing well and just had IV antibiotic. YENIFER Brock
== END 2022-11-14 16:32 | DRG 690 ==
LOC: ER 07:13 → 2ND 07:22
PROVIDERS: Admitting Provider Internal Medicine Adolescent Medicine; Emergency Provider Emergency Medicine; PCP Internal Medicine Adolescent Medicine; Visit Provider Internal Medicine Adolescent Medicine
DX: N39.0 Urinary tract infection, site not specified (principal); E11.9 Type 2 diabetes mellitus without complications; M19.90 Unspecified osteoarthritis, unspecified site; E66.9 Obesity, unspecified; Z87.442 Personal history of urinary calculi; I10 Essential (primary) hypertension; N20.9 Urinary calculus, unspecified; N20.0 Calculus of kidney
CPT/HCPCS: 36569; 36415; 51702; 71045; 74021; 80048; 80053; 81001; 82150; 82962; 83605; 83690; 84145; 85007; 85025; 85651; 86140; 87040; 87077; 87086; 87088; 87186; 93005; 97110; 97163; 97166; 97530; 99285; C1751; C9803; J0131; J0696; J2405; U0003; U0005

== ENCOUNTER → 2022-12-26 08:48 | Outpatient (CLI) | payer MEDICARE, MEDICAID, SELFPAY ==
[2022-12-26 09:01] LABS: Microscopic, Urine URINE MICROSCOPIC (MICROSCOPIC)
[2022-12-26 09:03] LABS: Appearance,Urine TURBID (Clear); Blood, Urine 3+ (Negative); Color,Urine RED (Yellow); Glucose,Urine (UA) TRACE (Negative); Ketones,Urine TRACE (Negative); Leukocyte Esterase,Urine 3+ (Negative); Nitrate,Urine POSITIVE (Negative); PH,Urine 7.5 (5.0-8.5); Protein,Urine 3+ (Negative); Specific Gravity, Urine 1.015 (1.005-1.030)
[2022-12-26 09:09] LABS: Bilirubin,Urine 2+ (Negative)
[2022-12-26 09:17] LABS: Bacteria,Urine 1+ /lpf; RBC,Urine TNTC #/hpf (0-3); Squamous Epithelial Cell,Urine Occasional #/hpf (0-5); WBC,Urine 20-50 #/hpf (0-3)
== END ==
PROVIDERS: PCP Internal Medicine Adolescent Medicine; Visit Provider Nurse Practitioner Family
DX: R50.9 Fever, unspecified (principal); N39.0 Urinary tract infection, site not specified; B96.29 Other Escherichia coli [E. coli] as the cause of diseases classified elsewhere; B96.4 Proteus (mirabilis) (morganii) as the cause of diseases classified elsewhere
CPT/HCPCS: 81001; 87086; 87088; 87186; 87275; 87276

== ENCOUNTER 2023-01-08 22:15 | Inpatient (IN) | payer MEDICARE, MEDICAID, SELFPAY ==
[2023-01-08 22:15] VITALS: BP 130/76; PULSE 110; RESP 23; TEMP 39.6; O2SAT 95; BMI 32.4; BMI 45.7
--- NOTE | 2023-01-08 22:20 | ECG_ITS ---
APPROVED REPORT Exam: Resting ECG HR:106 bpm ECG Measurements Heart Rate 106 AXES OH 182 P 8 QRSd 92 QRS 38 QT 327 T 34 QTc 389 Conclusion SINUS TACHYCARDIA WITH OCCASIONAL SUPRAVENTRICULAR PREMATURE COMPLEXES NONSPECIFIC ST & T-WAVE ABNORMALITY ABNORMAL RHYTHM ECG UNCONFIRMED REPORT Electronically signed by : Parish Franks MD 01/10/2023 17:04:16
--- NOTE | 2023-01-08 22:28 | XR_ITS ---
PROCEDURE INFORMATION: Exam: XR Chest Exam date and time: 01/08/2023 11:36 PM Age: 77 years old Clinical indication: Fever TECHNIQUE: Imaging protocol: Radiologic exam of the chest. Views: 1 view. COMPARISON: CR XR CHEST PORTABLE PICC PLAC 11/12/2022 12:15 PM FINDINGS: Lungs: Unremarkable. No consolidation. Pleural spaces: Unremarkable. No pleural effusion. No pneumothorax. Heart/Mediastinum: Unremarkable. No cardiomegaly. Bones/joints: Unremarkable. IMPRESSION: No acute findings.
--- NOTE | 2023-01-08 22:30 | CT_ITS ---
PROCEDURE INFORMATION: Exam: CT Abdomen And Pelvis With Contrast Exam date and time: 01/08/2023 11:11 PM Age: 77 years old Clinical indication: Bloating; Abdominal pain; Additional info: Abdominal pain/distention TECHNIQUE: Imaging protocol: Computed tomography of the abdomen and pelvis with contrast. Radiation optimization: All CT scans at this facility use at least one of these dose optimization techniques: automated exposure control; mA and/or kV adjustment per patient size (includes targeted exams where dose is matched to clinical indication); or iterative reconstruction. Contrast material: ISOVUE; Contrast volume: 75 ml; Contrast route: IV; REPORTING DATA: Count of CT and Cardiac NM exams in prior 12 months: This patient has received 2 known CTs and 0 known cardiac nuclear medicine studies in the 12 months prior to the current study. COMPARISON: CT ABDOMEN PELVIS WO CON 10/28/2022 6:45 AM FINDINGS: Coronary arteries: Marked coronary artery atherosclerosis. Liver: Mild liver surface nodularity is unchanged suggesting possible cirrhosis. Gallbladder and bile ducts: Cholecystectomy changes are stable. Pancreas: Normal. No ductal dilation. Spleen: Calcified mass in the gastric fundus measuring 4.8 cm is unchanged again extending towards the splenic hilum. Adrenal glands: Normal. No mass. Kidneys and ureters: Staghorn right renal calculus measuring 5.7 cm maximum axial dimension is unchanged. There is now right-sided perinephric stranding with gas in the right renal collecting system/proximal ureter. The right kidney also has asymmetric perinephric stranding present. The left kidney has stable atrophy. Stomach and bowel: The colon has marked air distention with air-fluid levels to the level of the rectum without evidence of obstruction. The distal rectum near the anus may be thickened with suspected pelvic floor laxity also present. Appendix: No evidence of appendicitis. Intraperitoneal space: Unremarkable. No free air. No significant fluid collection. Vasculature: Unremarkable. No abdominal aortic aneurysm. Lymph nodes: Unremarkable. No enlarged lymph nodes. Urinary bladder: There is a Lea catheter in the bladder which is decompressed. Reproductive: Hysterectomy. Bones/joints: Mild chronic L4 superior endplate compression deformity is unchanged. Soft tissues: Unremarkable. IMPRESSION: 1. Marked distention of the colon with numerous air-fluid levels. The distal rectum near the anus is decompressed are thickened. Differential diagnosis is obstruction related to proctocolitis or pelvic floor dysfunction/rectocele. Correlate with exam findings. 2. Stable staghorn right renal calculus. There is now right perinephric stranding with gas in the right renal collecting system suspicious for emphysematous pyelonephritis. Recommend clinical/urinalysis correlation. 3. 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
[2023-01-08 22:37] LABS: Basophils # 0.1 K/mm3 (0-0.2); Basophils % 0.4 % (0.1-2.0); Eosinophils # 0.1 K/mm3 (0.0-0.4); Hematocrit 40.9 % (37.0-47.0); Hemoglobin 12.7 g/dL (12.2-16.2); Lymphocytes # 1.3 K/mm3 (0.7-4.5); Lymphocytes % 9.8 % (10-50); Mean Corpuscular Hemoglobin 26.9 pg (27.0-31.2); Mean Corpuscular Volume 86.6 fl (81-99); Mean Platelet Volume 9.8 fl (7.4-10.4); Monocytes # 0.7 K/mm3 (0.1-1.0); Monocytes % 5.5 % (1.7-9.3); Neutrophils # 11.2 K/mm3 (1.8-7.8); Neutrophils % 83.3 % (37.0-80.0); Platelet Count 302 K/mm3 (142-424); Red Blood Count 4.73 M/mm3 (4.20-5.40); Red Cell Distribution Width 15.5 % (11.5-17.5); White Blood Count 13.4 K/mm3 (4.8-10.8)
[2023-01-08 22:40] LABS: Adenovirus F 40/41, stool Not Detected (NotDetected); Astrovirus Not Detected (NotDetected); Campylobacter Not Detected (NotDetected); Clostridium Difficile A/B, PCR Not Detected (NotDetected); Cryptosporidium Not Detected (NotDetected); Cyclospora Cayetanesis Not Detected (NotDetected); Entamoeba histolytica Not Detected (NotDetected); Enteroaggregative E coli Not Detected (NotDetected); Enteropathogenic E coli Not Detected (NotDetected); Enterotoxigenic E coli Not Detected (NotDetected); Giardia lamblia Not Detected (NotDetected); Norovirus Not Detected (NotDetected); Plesimonas Shigalloides, PCR Not Detected (NotDetected); Rotavirus A Not Detected (NotDetected); Salmonella, PCR Not Detected (NotDetected); Sapovirus Not Detected (NotDetected); Shiga-like toxin E coli Not Detected (NotDetected); Shigella Enterovasive E coli Not Detected (NotDetected); Vibrio Cholerae Not Detected (NotDetected); Vibrio, PCR Not Detected (NotDetected); Yersinia Entercolitica, PCR Not Detected (NotDetected)
[2023-01-08 22:41] LABS: Alanine Aminotransferase 16 U/L (12-78); Albumin Level 3.6 g/dl (3.5-5.0); Alkaline Phosphatase 129 U/L (38-126); Anion Gap 16.8 mEq/L (5-15); Aspartate Amino Transferase 28 U/L (14-36); Bilirubin,Total 0.7 mg/dl (0.2-1.3); Blood Urea Nitrogen 31 mg/dl (7-17); Chloride 111 mmol/L (98-107); Estimated Glomerular Filt Rate 34 ml/min (>60); GFR (African American) 41 ML/MIN (>60); Globulin 3.6 g/dL (1.3-3.2); Glucose 205 mg/dl (74-100); Potassium 3.8 mmoL/L (3.5-5.1); Sodium 134 mmol/L (136-145); Total Protein,Serum 7.2 g/dl (6.3-8.2)
[2023-01-08 22:43] LABS: INR 1.11 (0.9-1.1); Prothrombin Time 11.9 seconds (10.1-12.5)
[2023-01-08 22:46] LABS: C-Reactive Protein 47.2 mg/L (0-4)
[2023-01-08 22:48] LABS: Creatinine Clearance Estimated 40 mL/min (50-200)
[2023-01-08 22:49] LABS: Lactic Acid 1.2 mmol/L (0.7-2.1)
[2023-01-08 22:50] LABS: Coronavirus 19, PCR Not Detected (NotDetected); Influenza A, PCR Not Detected (NotDetected); Influenza B, PCR Not Detected (NotDetected)
[2023-01-08 22:50] LABS: Carbon Dioxide 10 mmol/L (22.0-30.0)
[2023-01-08 22:56] LABS: Microscopic, Urine URINE MICROSCOPIC (MICROSCOPIC)
[2023-01-08 22:57] LABS: Troponin I < 0.01 ng/ml (0.00-0.034)
[2023-01-08 22:57] LABS: Appearance,Urine TURBID (Clear); Bilirubin,Urine Negative (Negative); Blood, Urine 3+ (Negative); Color,Urine YELLOW (Yellow); Glucose,Urine (UA) TRACE (Negative); Ketones,Urine Negative (Negative); Leukocyte Esterase,Urine 3+ (Negative); Nitrate,Urine Negative (Negative); Protein,Urine 2+ (Negative); Urobilinogen,Urine 0.2 EU/dl (0.2)
[2023-01-08 22:59] LABS: Procalcitonin 1.12 ng/mL (0.0-2.0)
[2023-01-08 23:08] LABS: Amylase 51 U/L (30-110); Lipase 45 U/L (23-300)
[2023-01-08 23:16] LABS: WBC,Urine TNTC #/hpf (0-3)
[2023-01-08 23:16] LABS: Acetone, Serum (Rapid) None Detected (None Detect)
[2023-01-08 23:17] LABS: Bacteria,Urine 1+ /lpf; RBC,Urine 20-50 #/hpf (0-3)
[2023-01-08 23:22] LABS: Erythrocyte Sedimentation Rate 52 mm/hr (0-30)
[2023-01-08 23:30] VITALS: BP 105/51; PULSE 96; RESP 24; O2SAT 98
--- NOTE | 2023-01-08 23:44 | HMH.EDABDPAI ---
Discharge Plan Disposition Patient Disposition: Admitted As Inpatient Chief Complaint: Abdominal Pain Prescriptions Prescriptions: No Action furosemide [Lasix] 40 mg tablet 40 mg PO DAILY atorvastatin 40 mg tablet 40 mg PO HS insulin glargine [Lantus U-100 Insulin] 100 unit/mL solution 50 unit SQ HS diltiazem HCl 120 mg capsule,extended release 12 hr 120 mg PO DAILY omeprazole 20 mg capsule,delayed release(DR/EC) 20 mg PO HS montelukast 10 mg tablet 10 mg PO HS benazepril 10 mg tablet 10 mg PO DAILY Farxiga 10 mg tablet 10 mg PO DAILY Eliquis 5 mg tablet 5 mg PO BID metoprolol tartrate 75 mg tablet 75 mg PO BID gabapentin 400 mg capsule 400 mg PO TID insulin lispro [Humalog KwikPen Insulin] 100 unit/mL insulin pen 6 unit SQ AC potassium chloride 20 mEq Tablet Extended Release 40 meq PO DAILY polyethylene glycol 3350 [Miralax] 17 gram/dose powder 17 g PO DAILY acetaminophen [Acetaminophen Extra Strength] 500 mg Tablet 500 mg PO BID metoclopramide HCl 10 mg Tablet 10 mg PO Q6H PRN (Reason: Ileus) Discharge ED Provider: Keven (ED)Jostin Abdominal Pain HPI General Chief Complaint: Abdominal Pain Stated Complaint: unresponsive per SNF Time Seen by Provider: 01/08/23 23:44 Mode of Arrival: EMS Source of Information: Patient, EMS and Medical Record Limitations: Physical Limitations Description of Symptoms (Recalled from ER Triage Doc. by RN): 77 F presents via EMS from [facility] after staff called 911 for patient unresponsive and staring at the ceiling. Patient glucose was 264 at 1644 this date, patient recieved 50u SQ long acting around 2100, but glucose not rechecked per nurse at SNF. In route, patient FSBS was WNL, VSS with tachycardia. Patient presents with severe excoriation to her vaginal area, abdominal distention, and watery diarrhea. History of Present Illness HPI narrative: sent from [facility] with altered mental status - pt is diabetic - no reported chest pain or vomiting - has distended abd - MD complaint: abdominal pain Onset (ago): hour(s) Consistency: intermittent Location: diffuse Severity: moderate Associated symptoms: denies other symptoms Related Data Home Medications Medication Instructions Recorded Confirmed apixaban 5 mg tablet (Eliquis) 5 mg PO BID joann history/a fib 08/08/22 01/08/23 atorvastatin 40 mg tablet 40 mg PO HS Cholesterol 08/08/22 01/08/23 benazepril 10 mg tablet 10 mg PO DAILY Hypertension 08/08/22 01/08/23 dapagliflozin 10 mg tablet 10 mg PO DAILY Diabetes 08/08/22 01/08/23 ([facility]) diltiazem HCl 120 mg 120 mg PO DAILY HEART RATE 08/08/22 01/08/23 capsule,extended release 12 hr furosemide 40 mg tablet (Lasix) 40 mg PO DAILY Fluid 08/08/22 01/08/23 gabapentin 400 mg capsule 400 mg PO TID Pain 08/08/22 01/08/23 insulin glargine 100 unit/mL 50 unit SQ HS Diabetes 08/08/22 01/08/23 subcutaneous solution (Lantus U-100 Insulin) insulin lispro 100 unit/mL 6 unit SQ AC Diabetes 08/08/22 01/08/23 subcutaneous pen (Humalog KwikPen (U-100) Insulin) metoprolol tartrate 75 mg tablet 75 mg PO BID Hypertension 08/08/22 01/08/23 montelukast 10 mg tablet 10 mg PO HS ALLERGIES 08/08/22 01/08/23 omeprazole 20 mg capsule,delayed 20 mg PO HS GERD 08/08/22 01/08/23 release polyethylene glycol 3350 17 17 g PO DAILY CONSTIPATION 09/16/22 01/08/23 gram/dose oral powder (Miralax) potassium chloride 20 mEq 40 meq PO DAILY Supplement 09/16/22 01/08/23 tablet,extended release acetaminophen 500 mg tablet 500 mg PO BID Pain 11/11/22 01/08/23 (Acetaminophen Extra Strength) metoclopramide HCl 10 mg tablet 10 mg PO Q6H PRN Ileus 01/08/23 01/08/23 Allergies Allergy/AdvReac Type Severity Reaction Status Date / Time butorphanol [From Stadol] Allergy Anxiety Verified 10/31/22 10:23 [facility] Disclaimer: The information contained in this section may
--- NOTE | 2023-01-08 23:45 | PC.NURSE ---
Dr. Baca s/w ANGELICAAD
--- NOTE | 2023-01-08 23:46 | PC.NURSE ---
Patient still receiving sepsis fluids. Abx deferred by provider at this time. Patient resting, VSS, NAD
[2023-01-09] VITALS (12 sets, daily range): BP systolic 93–152; BP diastolic 49–89; PULSE 82–139; RESP 18–22; TEMP 36.6–39.8; O2SAT 95–99; BMI 33.3; BMI 33.5
--- NOTE | 2023-01-09 00:22 | PC.NURSE ---
Rounded on pt. Pt continues resting at this time. Call light within reach.
--- NOTE | 2023-01-09 00:44 | PC.NURSE ---
Dr. Baca s/w Dr. Franks regarding admission, he would like to send her back
--- NOTE | 2023-01-09 00:52 | PC.NURSE ---
pt's granddaughter would like for pt to be admitted. Dr. Baca notified Dr. Franks and he agreed to admit. supervisor pastry notified for bed assignment.
--- NOTE | 2023-01-09 01:01 | PC.NURSE ---
Pt;s IV infiltrated, attempting to place another PIV.
--- NOTE | 2023-01-09 04:15 | PC.NURSE ---
Patient admitted to floor from ED 0147 01/09/23, admitted with polynephritis. Indwelling catheter patent and draining cloudy, milky urine. Peripheral IV in bilateral hands, normal saline running at 100ml/hr per MD order. Patient denies pain, is a resident of [facility]. Telemetry monitoring initiated per order. MASD to hiren area and coccyx. Patient on room air, vital signs stable, NPO; oriented to call light system. Bed alarm on due to history of dementia; call light in reach.
[2023-01-09 05:31] LABS: POC Glucose,Bedside 184 (70-110)
[2023-01-09 06:38] LABS: Basophils # 0.1 K/mm3 (0-0.2); Basophils % 0.5 % (0.1-2.0); Eosinophils # 0.1 K/mm3 (0.0-0.4); Eosinophils % 0.6 % (0.1-12.0); Hematocrit 37.4 % (37.0-47.0); Hemoglobin 11.5 g/dL (12.2-16.2); Lymphocytes # 2.5 K/mm3 (0.7-4.5); Lymphocytes % 19.2 % (10-50); Mean Corpuscular HGB Conc 30.8 g/dL (31.8-35.4); Mean Corpuscular Volume 87.8 fl (81-99); Mean Platelet Volume 9.9 fl (7.4-10.4); Monocytes # 0.9 K/mm3 (0.1-1.0); Monocytes % 7.2 % (1.7-9.3); Neutrophils # 9.4 K/mm3 (1.8-7.8); Neutrophils % 72.4 % (37.0-80.0); Platelet Count 246 K/mm3 (142-424); Red Blood Count 4.27 M/mm3 (4.20-5.40); Red Cell Distribution Width 15.4 % (11.5-17.5)
[2023-01-09 06:39] LABS: Chloride 119 mmol/L (98-107); Potassium 4.1 mmoL/L (3.5-5.1); Sodium 137 mmol/L (136-145)
[2023-01-09 06:42] LABS: Blood Urea Nitrogen 28 mg/dl (7-17); Calcium 8.3 mg/dl (8.4-10.2); Creatinine Clearance Estimated 44 mL/min (50-200); Estimated Glomerular Filt Rate 37 ml/min (>60); GFR (African American) 44 ML/MIN (>60); Glucose 171 mg/dl (74-100)
[2023-01-09 06:45] LABS: Anion Gap 11.1 mEq/L (5-15); Carbon Dioxide 11 mmol/L (22.0-30.0)
--- NOTE | 2023-01-09 07:33 | HMH.PHAINT1 ---
Pharmacy Intervention Comments: Reconciled patient's home medications using MAR from [facility].
--- NOTE | 2023-01-09 08:27 | EXP.HP ---
History of Present Illness *Admission Date: 01/09/23 *Reason for visit:: Fever/mental status change *History of present illness: 77-year-old female, [facility] who has been afflicted with stroke disease in the past and has hemiparesis. She also suffers from the presence of a large staghorn calculus and has had frequent urinary tract infections. She has been seen by urology in [place] who is following her, and is contemplating surgical removal of the calculus, but given her poor surgical candidacy work-up and watchful waiting have been ongoing. Yesterday she had an episode [facility] the [facility] where she became somewhat unresponsive and tachycardia. She was brought to the hospital. She was found to be febrile, catheter was placed with a large amount of urinary retention noted and a dirty urine sediment. CT scan showed pneumatosis in the bladder. Lea catheter was maintained and she was admitted for SIRS, UTI issues, urinary retention and mental status changes. [facility] Disclaimer: The information contained in this section may have been updated after the patient was seen, as this information can be updated by other users. Medical History Afib Allergies Aphasia Arthritis Cannot walk Cholecystectomy planned Constipation Dementia Diabetes Edema GERD (gastroesophageal reflux disease) High cholesterol History of COVID-19 Hypertension Kidney stone Obesity Stroke Urinary incontinence Vascular dementia Surgical History History of appendectomy Hx of knee surgery RIGHT KNEE Family History Other Hypertension Social History Smoking Status: Never smoker alcohol intake: never substance use type: denies use current occupational status: unemployed Travel in the last 8 weeks: None Review of Systems Review of Systems Review of systems:: unable to obtain and pertinent systems reviewed and negative unless documented below Meds Home Medications and Allergies Home Medications Medication Instructions Recorded Confirmed Type apixaban 5 mg tablet (Eliquis) 5 mg PO BID joann history/a fib 08/08/22 01/09/23 History atorvastatin 40 mg tablet 40 mg PO HS Cholesterol 08/08/22 01/09/23 History benazepril 10 mg tablet 10 mg PO DAILY High blood pressure 08/08/22 01/09/23 History dapagliflozin 10 mg tablet 10 mg PO DAILY Diabetes 08/08/22 01/09/23 History (Farxiga) diltiazem HCl 120 mg 120 mg PO DAILY HEART RATE 08/08/22 01/09/23 History capsule,extended release 12 hr furosemide 40 mg tablet (Lasix) 40 mg PO DAILY Fluid 08/08/22 01/09/23 History gabapentin 400 mg capsule 400 mg PO TID Pain 08/08/22 01/09/23 History insulin glargine 100 unit/mL 50 unit SQ HS Diabetes 08/08/22 01/09/23 History subcutaneous solution (Lantus U-100 Insulin) insulin lispro 100 unit/mL 6 unit SQ TIDWMEAL Diabetes 08/08/22 01/09/23 History subcutaneous pen (Humalog KwikPen (U-100) Insulin) metoprolol tartrate 75 mg tablet 75 mg PO BID High blood pressure 08/08/22 01/09/23 History montelukast 10 mg tablet 10 mg PO HS ALLERGIES 08/08/22 01/09/23 History omeprazole 20 mg capsule,delayed 20 mg PO HS Acid reflux 08/08/22 01/09/23 History release polyethylene glycol 3350 17 17 g PO DAILY CONSTIPATION 09/16/22 01/09/23 History gram/dose oral powder (Miralax) potassium chloride 20 mEq 20 meq PO BID Supplement 09/16/22 01/09/23 History tablet,extended release acetaminophen 500 mg tablet 500 mg PO BID Pain 11/11/22 01/09/23 History (Acetaminophen Extra Strength) metoclopramide HCl 10 mg tablet 10 mg PO TIDWMEAL Ileus 01/08/23 01/09/23 History metoclopramide HCl 10 mg tablet 10 mg PO HS Ileus 01/09/23 01/09/23 History New Prescriptions to Start Prescriptions: Allergies
--- NOTE | 2023-01-09 09:20 | PC.NURSE ---
spoke with about schwab catheter. wishes to keep schwab in at this time, stating he believes patient had urinary retention, and may require the catheter for a longer period.
[2023-01-09 11:12] LABS: POC Glucose,Bedside 175 (70-110)
--- NOTE | 2023-01-09 14:13 | DIET.NUTRFU ---
Nursing reported poor intake for lunch, but did okay on water. will add glucerna with dinner for additional calories and protein until po intake improves, will notify kitchen
--- NOTE | 2023-01-09 15:36 | PC.NURSE ---
PT RECTAL TEMP 103.7 AT THIS TIME. RECTAL TYLENOL GIVEN, ICE PACKS PLACED, UNCOVERED, COOL CLOTH ON FOREHEAD.
[2023-01-09 15:56] LABS: POC Glucose,Bedside 156 (70-110)
--- NOTE | 2023-01-09 17:35 | PC.NURSE ---
PT HAS BEEN AROUSABLE TO NAME AND LIGHT PAIN THIS SHIFT. HAS STATED HER NAME, BIRTHDAY AND THAT SHE IS IN THE HOSPITAL ONCE. HARD TO AROUSE AT TIMES. PT HAS HAD CONTINUOUS FEVER, TX WITH TYLENOL PER DEC. PT HAS BEEN TURNED Q2H, MOUTH CARE PROVIDED. F/C PRESENT DRAINING MILKY DARK YELLOW URINE. ACTIVE COOLING STILL IN PLACE. NO OTHER NEEDS NOTED THUS FAR.
--- NOTE | 2023-01-09 20:18 | PC.NURSE ---
SPOKE WITH DR HENDERSON RE ELEVATED HR AND TEMP. ORDER RECEIVED TO BOLUS 500 ML NS X 1 DOSE.
[2023-01-09 21:12] LABS: POC Glucose,Bedside 151 (70-110)
[2023-01-10] VITALS (19 sets, daily range): BP systolic 127–204; BP diastolic 48–82; PULSE 73–175; RESP 18–25; TEMP 35.9–38.5; O2SAT 93–99; BMI 34.6
--- NOTE | 2023-01-10 05:24 | PC.NURSE ---
PSTIENT HAS RUN A FEVER AT FIRST PART OF SHIFT. RECEIVED TYLENOL 650 MG RECTAL [id number]. GENERALIZED EDEMA NOTED. TEMP AT THIS TIME 97.9.
[2023-01-10 05:53] LABS: POC Glucose,Bedside 168 (70-110)
--- NOTE | 2023-01-10 08:05 | ECG_ITS ---
APPROVED REPORT Exam: Resting ECG HR:127 bpm ECG Measurements Heart Rate 127 AXES QRSd 89 QRS 45 QT 230 T 0 QTc 305 Conclusion ATRIAL FIBRILLATION WITH RAPID VENTRICULAR RESPONSE NONSPECIFIC ST & T-WAVE ABNORMALITY ABNORMAL RHYTHM ECG UNCONFIRMED REPORT Electronically signed by : Parish Franks MD 01/10/2023 17:01:28
--- NOTE | 2023-01-10 08:26 | DIET.NUTRFU ---
Patient continues to be lethargic/unresponsive unable to swallow pills. Meal intake was 0% last night for dinner.
--- NOTE | 2023-01-10 08:32 | EXP.ACUTE.PN ---
Subjective *Date: 01/10/23 *Time: 08:32 Interval history: Patient remains febrile. Microbiology cultures remain no growth from blood and urine. Urine output is clearing on inspection from her catheter. She is little bit more talkative today and more alert, denies pain, states that she feels very tired. Overnight however she is remained tachycardic in spite of more fluid administration and this morning is in an irregular rhythm and on EKG testing is in A-fib with rapid response. Blood pressures have been normal, however. Medical Exam Vital signs and Labs for Last 24 Hours: Vital Signs Temp Pulse Resp BP Pulse Ox 01/10/23 04:00 97.9 F 114 H 18 149/74 H 99 01/10/23 00:51 99.8 F H 129 H 18 152/82 H 98 01/10/23 00:00 101.3 F H 137 H 18 204/71 H 93 L 01/09/23 20:00 97 01/09/23 20:00 100.6 F H 139 H 18 152/89 H 97 01/09/23 17:59 100.6 F H 01/09/23 15:45 103.7 F H 01/09/23 16:34 102.7 F H 01/09/23 15:13 102.7 F H 120 H 20 150/72 H 97 01/09/23 11:07 99.9 F H 120 H 18 128/73 98 01/09/23 09:56 98.6 F Intake and Output 01/09/23 01/10/23 01/10/23 19:59 03:59 11:59 Intake Total 300 / 2170 650 / 2170 1220 / 2170 Output Total 800 / 2000 900 / 2000 300 / 2000 Balance -500 / 170 -250 / 170 920 / 170 Intake: Intake, Oral Amount 300 / 420 120 / 420 Intake, Total IV Amount 650 / 1750 1100 / 1750 0.9 % Sodium Chloride 1000ML 1, 1000 / 1000 000 ml @ 100 mls/hr IV .Q10H [facility] Rx#:[id number] 0.9 % Sodium Chloride 500 ml @ 500 / 500 500 mls/hr IV .Q1H ONE Rx#: [id number] Ceftriaxone 1 gm 1 gm In 0.9 % 50 / 50 Sodium Chloride 50 ml @ 100 mls /hr IV Q24H [facility] Rx#:[id number] Metronidaz/Sod Chl 500 mg In 100 / 200 100 / 200 100 ml @ 100 mls/hr IV Q6H [facility] Rx#:[id number] Output: Output, Urine Amount 0 / 1200 900 / 1200 300 / 1200 Output, Urine Amount (Catheter) 800 / 800 Lea 800 / 800 Other: Number of Unmeasured Voids 0 Number of Bowel Movements 2 Weight 188 lb 2 oz Patient Weight 01/10/23 11:59 Weight 188 lb 2 oz Laboratory Results - last 24 hr 01/09/23 11:01: POC Glucose 175 H 01/09/23 15:48: POC Glucose 156 H 01/09/23 20:57: POC Glucose 151 H 01/10/23 05:46: POC Glucose 168 H I & O for Labs for Last 24 Hours: Intake & Output 01/07/23 01/08/23 01/09/23 01/10/23 11:59 11:59 11:59 11:59 Intake Total 357 / 357 2170 / 2170 Output Total 250 / 250 1999 / 1999 Balance 107 / 107 170 / 170 Weight 182 lb 8.684 oz 188 lb 2 oz Microbiology Reports for the Last 24 Hours: Microbiology 01/08/23 22:45 Urine,Catheterized Urine Culture - Preliminary Comment:: More responsive than yesterday. Talkative, responds to commands, really unable to swallow because of her weakness. Lungs have good air movement. Heart rate irregular and rapid. Abdomen less distended than yesterday. Extremities are warm and well-perfused. She is able to move all extremities. Assessment and Plan *Assessment and plan (1) Pyelonephritis: Status: Acute Category: Medical Code(s): N12 - Tubulo-interstitial nephritis, not specified as acute or chronic (2) Acute UTI (urinary tract infection): Status: Acute Category: Medical Code(s): N39.0 - Urinary tract infection, site not specified (3) SIRS (systemic inflammatory response syndrome): Status: Acute Category: Medical Code(s): R65.10 - Systemic inflammatory response syndrome (SIRS) of non-infectious origin without acute organ dysfunction (4) PAF (paroxysmal atrial fibrillation): Status: Acute Category: Medical Code(s): I48.0 - Paroxysmal atrial fibrillation (5) Stroke: Status: Acute Category: Medical Code(s): I63.9 - Cerebral infarction, unspecified (6) Diabetes: Status: Acute Category: Medical
--- NOTE | 2023-01-10 08:55 | PC.NURSE ---
LATE ENTRY- 0759- ELEVATED HR NOTED ON AUSCULTATION. TELEMETRY APPLIED AND REVEALED APPARENT AFIB/AFLUTTER WITH HR >150. 0805-12 LEAD EKG OBTAINED VERIFYING AFIB WITH RVR. 0810- DR HENDERSON NOTIFIED OF FINDINGS. 0815- PT TRANSFERRED TO STEP DOWN. PLACED ON DILT GTT.
[2023-01-10 11:30] LABS: POC Glucose,Bedside 169 (70-110)
[2023-01-10 16:47] LABS: POC Glucose,Bedside 224 (70-110)
--- NOTE | 2023-01-10 19:56 | PC.NURSE ---
HR sustaining in 160s, Dilt titrated up to 15mg/hr.
[2023-01-10 20:20] LABS: POC Glucose,Bedside 260 (70-110)
--- NOTE | 2023-01-10 21:54 | ECG_ITS ---
APPROVED REPORT Exam: Resting ECG HR:96 bpm ECG Measurements Heart Rate 96 AXES QRSd 109 QRS 18 QT 280 T 0 QTc 334 Conclusion ATRIAL FLUTTER/TACHYCARDIA LOW QRS VOLTAGE IN PRECORDIAL LEADS [QRS DEFLECTION < 1.0 mV IN CHEST LEADS] PATTERN CONSISTENT WITH PULMONARY DISEASE NONSPECIFIC ST & T-WAVE ABNORMALITY ABNORMAL ECG UNCONFIRMED REPORT Electronically signed by : Parish Franks MD 01/14/2023 20:42:29
--- NOTE | 2023-01-10 22:51 | PC.NURSE ---
2054- Dilt gtt changed to 10mg/hr 2109 Dilt gtt changed to 5mg/hr
[2023-01-11] VITALS (14 sets, daily range): BP systolic 117–168; BP diastolic 45–77; PULSE 70–144; RESP 16–28; TEMP 36.5–38.7; O2SAT 95–98; BMI 34.6
--- NOTE | 2023-01-11 05:02 | PC.NURSE ---
pt's HR sustained 110-120's, increasing diltiazem drip to 10mg/hr
[2023-01-11 07:42] LABS: Basophils % 0.1 % (0.1-2.0); Eosinophils # 0.1 K/mm3 (0.0-0.4); Eosinophils % 0.7 % (0.1-12.0); Hematocrit 34.7 % (37.0-47.0); Hemoglobin 10.8 g/dL (12.2-16.2); Lymphocytes # 0.8 K/mm3 (0.7-4.5); Lymphocytes % 6.2 % (10-50); Mean Corpuscular HGB Conc 31.1 g/dL (31.8-35.4); Mean Corpuscular Hemoglobin 26.3 pg (27.0-31.2); Mean Corpuscular Volume 84.4 fl (81-99); Mean Platelet Volume 10.7 fl (7.4-10.4); Monocytes # 0.6 K/mm3 (0.1-1.0); Monocytes % 4.7 % (1.7-9.3); Neutrophils % 88.4 % (37.0-80.0); Platelet Count 239 K/mm3 (142-424); Red Blood Count 4.11 M/mm3 (4.20-5.40); White Blood Count 12.5 K/mm3 (4.8-10.8)
[2023-01-11 07:46] LABS: MANUAL DIFFERENTIAL MANUAL DIFFERENTIAL (MANUAL DIFF)
[2023-01-11 08:14] LABS: Lymphocytes % 3 % (10-50); Monocytes % 5 % (2-9); Neutrophils % 92 % (42-76); Platelet Estimate Normal; RBC Morphology Normal; Total Cells Counted 100
[2023-01-11 08:40] LABS: Chloride 124 mmol/L (98-107)
[2023-01-11 08:41] LABS: Sodium 146 mmol/L (136-145)
[2023-01-11 08:43] LABS: Blood Urea Nitrogen 19 mg/dl (7-17); Creatinine Clearance Estimated 64 mL/min (50-200); Estimated Glomerular Filt Rate 54 ml/min (>60); GFR (African American) 65 ML/MIN (>60)
[2023-01-11 08:44] LABS: Calcium 8.8 mg/dl (8.4-10.2); Glucose 277 mg/dl (74-100)
--- NOTE | 2023-01-11 08:48 | EXP.ACUTE.PN ---
Subjective *Date: 01/11/23 *Time: 08:48 Interval history: Atrial fibrillation became more of a problem yesterday with increased rate, transition to stepdown, placed on diltiazem drip. Through the night she is improved slightly. We did add 1 dose of labetalol yesterday. Fever curve is also improved. Echocardiogram reviewed from yesterday, preliminary report only available, showing preserved ejection fraction. Cultures are growing gram-negative rods-2 species from urine, speciation and sensitivities are still pending. Medical Exam Vital signs and Labs for Last 24 Hours: Vital Signs Temp Pulse Pulse Resp BP Pulse Ox 01/11/23 08:00 99.9 F H 01/11/23 06:00 100 H 28 H 138/67 95 01/11/23 04:00 98.4 F 100 H 27 H 136/66 98 01/10/23 20:00 120 H 01/11/23 00:00 90 01/11/23 04:00 97 H 01/11/23 02:00 85 27 H 117/45 L 96 01/11/23 01:18 95 01/11/23 00:00 97.7 F 01/11/23 00:00 88 26 H 120/58 L 96 01/10/23 21:10 73 01/10/23 20:55 89 01/10/23 22:00 83 25 H 135/57 L 94 L 01/10/23 20:00 99.3 F 01/10/23 20:00 141 H 25 H 161/58 H 97 01/10/23 19:45 162 H 01/10/23 19:34 94 H 96 01/10/23 18:00 108 H 23 150/59 H 97 01/10/23 16:00 103 H 21 144/59 H 97 01/10/23 16:00 85 01/10/23 14:00 96.6 F L 90 22 128/70 97 01/10/23 12:00 120 H 01/10/23 13:00 127 H 23 156/65 H 98 01/10/23 12:00 136 H 22 131/67 98 01/10/23 11:00 99.0 F 107 H 21 127/48 L 96 01/10/23 10:00 98 H 22 156/65 H 97 01/10/23 09:00 108 H 21 152/73 H 97 Intake and Output 01/10/23 01/11/23 01/11/23 19:59 03:59 11:59 Intake Total 938 / 1216 278 / 1216 Output Total 550 / 2901 2350 / 2901 1 / 2901 Balance 388 / -1685 -2072 / -1685 - Intake: Intake, Oral Amount 300 / 300 Intake, Total IV Amount 638 / 916 278 / 916 0.9 % Sodium Chloride 1000ML 1, 453 / 631 178 / 631 000 ml @ 100 mls/hr IV .Q10H [facility] Rx#:[id number] Metronidaz/Sod Chl 500 mg In 100 / 200 100 / 200 100 ml @ 100 mls/hr IV Q6H ALLEN Rx#:[id number] dilTIAZem HCL 100 mg In 0.9 % 85 / 85 Sodium Chloride 100 ml @ 5 mls/ hr IV .Q20H ALLEN Rx#:[id number] Output: Output, Urine Amount / Output, Urine Amount (Catheter) 550 / 2900 2350 / 2900 Lea 550 / 2900 2350 / 2900 Other: Number of Unmeasured Voids 0 0 0 Number of Bowel Movements 1 1 Weight 188 lb 1.998 oz Patient Weight 01/11/23 11:59 Weight 188 lb 1.998 oz Laboratory Results - last 24 hr 01/08/23 22:45: Urine Color Yellow, Urine Appearance Turbid, Urine pH 6.0, Ur Specific [place] 1.020, Urine Protein 2+, Urine Glucose (UA) Trace, Urine Ketones Negative, Urine Blood 3+, Urine Nitrate Negative, Urine Bilirubin Negative, Urine Urobilinogen 0.2, Ur Leukocyte Esterase 3+ A, Urine RBC 20-50, Urine WBC Tntc, Urine Bacteria 1+ 01/10/23 11:23: POC Glucose 169 H 01/10/23 16:40: POC Glucose 224 H 01/10/23 20:10: POC Glucose 260 H 01/11/23 07:09: WBC 12.5 H, RBC 4.11 L, Hgb 10.8 L, Hct 34.7 L, MCV 84.4, MCH 26.3 L, MCHC 31.1 L, RDW 16.0, Plt Count 239, MPV 10.7 H, Neut % (Auto) 88.4 H, Lymph % (Auto) 6.2 L, [place] % (Auto) 4.7, Eos % (Auto) 0.7, Baso % (Auto) 0.1, Neut # (Auto) 11.0 H, Lymph # (Auto) 0.8, [place] # (Auto) 0.6, Eos # (Auto) 0.1, Baso # (Auto) 0.0, Total Counted 100, Neutrophils % (Manual) 92 H, Lymphocytes % (Manual) 3 L, Monocytes % (Manual) 5, Platelet Estimate Normal, RBC Morphology Normal I & O for Labs for Last 24 Hours: Intake & Output 01/08/23 01/09/23 01/10/23 01/11/23 11:59 11:59 11:59 11:59 Intake Total 357 / 357 2296 / 2296 1216 / 1216 Output Total 250 / 250 2500 / 2500 2901 / 2901 Balance 107 / 107 -204 / -204 -1685 / -1685 Weight 182 lb 8.684 oz 188 lb 2 oz 188 lb 1.998 oz Microbiology Reports for the Last 24 Hours: Microbiology 01/08/23 22:45 Urine,Catheteri
[2023-01-11 08:51] LABS: Carbon Dioxide 10 mmol/L (22.0-30.0)
[2023-01-11 09:15] LABS: Thyroid Stimulating Hormone 0.36 uIU/mL (0.465-4.68)
--- NOTE | 2023-01-11 09:36 | PC.NURSE ---
courtesy tech note; rounded on pt, assisted pt with breakfast meal, assisted nurse with Q2 hour turn. pt right side lying. assisted nurse to perform oral care, mouth swabbed and suction. pt drank 360 ml. call light within reach. no further requests at this time. Kamaljit Plummer, SRNA
[2023-01-11 10:42] LABS: POC Glucose,Bedside 242 (70-110)
[2023-01-11 10:42] LABS: POC Glucose,Bedside 271 (70-110)
--- NOTE | 2023-01-11 15:29 | PC.NURSE ---
Pt alert to self. HR remains afib. HR became more tachycardic this afternoon. HR 110s-150s. Diltiazem gtt titrated to maximum 15 mg/hr with no response. notified. New orders received to give Metoprolol tartrate 5 mg IV Q8 hrs prn for HR greater than 110 and with SBP greater than 120. Orders carried out. HR improved. HR is currently less than 100. Diltiazem gtt is currently infusing @ 5 mg/hr. Pt is febrile this afternoon. Tylenol administered. Pt has had liquid stools. Turned Q2 hr. Pt bathed today. Call light within reach.
--- NOTE | 2023-01-11 15:56 | PC.NURSE ---
courtesy tech note; rounded on pt, pt refused lunch tray, assisted pt to drink water. pt drank 30 ml. assisted nurse with Q2 hour turn and changing pt brief. pt had small brown bowel movement, type 7. Barrier cream applied to inner thighs where redness is present. call light within reach, no further requests at this time. Kamaljit Plummer, SRNA
[2023-01-11 16:37] LABS: Chloride 125 mmol/L (98-107); Sodium 148 mmol/L (136-145)
[2023-01-11 16:40] LABS: Anion Gap 13.5 mEq/L (5-15); Blood Urea Nitrogen 19 mg/dl (7-17); Calcium 8.8 mg/dl (8.4-10.2); Carbon Dioxide 12 mmol/L (22.0-30.0); Creatinine Clearance Estimated 64 mL/min (50-200); Estimated Glomerular Filt Rate 54 ml/min (>60); GFR (African American) 65 ML/MIN (>60); Glucose 255 mg/dl (74-100)
[2023-01-11 16:43] LABS: Potassium 2.5 mmoL/L (3.5-5.1)
[2023-01-11 16:47] LABS: POC Glucose,Bedside 265 (70-110)
--- NOTE | 2023-01-11 18:37 | PC.NURSE ---
courtesy tech note; rounded on pt; assisted nurse with Q2 hour turn. assisted pt to drink water, pt ate 25% of dinner tray. tolerated well. call light within reach, no further requests at this time.
[2023-01-11 20:53] LABS: POC Glucose,Bedside 232 (70-110)
--- NOTE | 2023-01-11 21:10 | PC.NURSE ---
noted pt with NSR on ecg monitor, dr mason was called regarding rythm, ekg was obtained that revealed nsr, noted on monitor occasional pvc's and pac's with occasional arrhythmia, rate 90's, telephone order to continue diltiazem drip at this time.
--- NOTE | 2023-01-11 21:12 | ECG_ITS ---
APPROVED REPORT Exam: Resting ECG HR:89 bpm ECG Measurements Heart Rate 89 AXES AR 175 P -9 QRSd 94 QRS 46 QT 311 T 21 QTc 358 Conclusion SINUS RHYTHM WITH OCCASIONAL SUPRAVENTRICULAR PREMATURE COMPLEXES LOW QRS VOLTAGE IN PRECORDIAL LEADS [QRS DEFLECTION < 1.0 mV IN CHEST LEADS] POSSIBLE ANTERIOR MYOCARDIAL INFARCTION , PROBABLY OLD [30 ms Q WAVE IN V3/V4, OR R < 0.2 mV IN V4] BORDERLINE ECG UNCONFIRMED REPORT Electronically signed by : Parish Franks MD 01/12/2023 15:55:04
[2023-01-12] VITALS (14 sets, daily range): BP systolic 138–168; BP diastolic 55–95; PULSE 81–115; RESP 16–30; TEMP 35.7–39.7; O2SAT 95–99; BMI 33.7
--- NOTE | 2023-01-12 00:24 | PC.NURSE ---
Addendum entered by Ness Stevens RN 01/12/23 00:26: diltiazem remains at 5ml/hr as pt is still in a sinus rythm. Original Note: noted pt with sinus tach on monitor, hr up to 130 at times, sinus tach and sustaining above 110, prn dose of metoprolol 5mg iv was given for HR, and also b/p elevation sbp 163-166.
[2023-01-12 00:42] LABS: Anion Gap 11.7 mEq/L (5-15); Blood Urea Nitrogen 18 mg/dl (7-17); Calcium 8.2 mg/dl (8.4-10.2); Carbon Dioxide 11 mmol/L (22.0-30.0); Chloride 120 mmol/L (98-107); Creatinine Clearance Estimated 64 mL/min (50-200); Estimated Glomerular Filt Rate 61 ml/min (>60); GFR (African American) 74 ML/MIN (>60); Glucose 224 mg/dl (74-100); Sodium 140 mmol/L (136-145)
[2023-01-12 00:48] LABS: Potassium 2.7 mmoL/L (3.5-5.1)
--- NOTE | 2023-01-12 00:56 | PC.NURSE ---
telephone order was received dr mason to give 2 runs IV potassium for potassium level less than 3.0 repeated and verified, note potassium level at this time is 2.7.
--- NOTE | 2023-01-12 03:54 | PC.NURSE ---
dr mason was called regarding IV access, ultrasound guided IV was started in right forearm #20 by Taurus LOMAS, iv infiltrated after first bag IV potassium was given, IV to left AC infiltrated after rocephin was given, IV to right thumb with diltiazem infusing at 5mg/hr, IV to left thumb still patent at this time but and confirmed by CESILIA with Ultrasound machine, dr Mason stated we could use the feet as last resort if needed repeated and verified, also informed of pts temperature 103.4 rectal, pt very edematous 3-4+, USG IV was attempted x3 sticks and successful to lower right forearm, moved 2nd potassium run to this site and will monitor, ice packs were placed under armpits, blankets were removed and air turned down in room, tylenol given as prescribed.
--- NOTE | 2023-01-12 05:16 | PC.NURSE ---
pt remains in sinus rythm, temp down to 98.3 axillary after tylenol, ice packs from 103.4, pt with limited IV access r/t to edema and multiple infiltrations, pt may benefit from PICC line, pt is alert to name only but lethargic when not aroused, pt with frequent liquid stools this shift, 3-4+ edema to bilateral upper and lower extremities, pt excoriated on buttocks area r/t diarrhea liquid stools, pt with dry intermittent cough and noted more so after taking sip of water. f/c to bsd, urine noted with sediment and cloudy.
[2023-01-12 06:18] LABS: POC Glucose,Bedside 219 (70-110)
[2023-01-12 06:18] LABS: POC Glucose,Bedside 212 (70-110)
[2023-01-12 07:14] LABS: Basophils % 0.2 % (0.1-2.0); Eosinophils # 0.1 K/mm3 (0.0-0.4); Hematocrit 29.9 % (37.0-47.0); Lymphocytes # 0.5 K/mm3 (0.7-4.5); Lymphocytes % 3.6 % (10-50); Mean Corpuscular HGB Conc 31.3 g/dL (31.8-35.4); Mean Corpuscular Hemoglobin 25.7 pg (27.0-31.2); Mean Corpuscular Volume 82.1 fl (81-99); Mean Platelet Volume 10.4 fl (7.4-10.4); Monocytes # 0.6 K/mm3 (0.1-1.0); Monocytes % 4.3 % (1.7-9.3); Neutrophils # 12.8 K/mm3 (1.8-7.8); Neutrophils % 90.8 % (37.0-80.0); Platelet Count 192 K/mm3 (142-424); Red Blood Count 3.65 M/mm3 (4.20-5.40); Red Cell Distribution Width 16.2 % (11.5-17.5); White Blood Count 14.1 K/mm3 (4.8-10.8)
[2023-01-12 07:17] LABS: Hemoglobin 9.5 g/dL (12.2-16.2); MANUAL DIFFERENTIAL MANUAL DIFFERENTIAL (MANUAL DIFF)
[2023-01-12 07:23] LABS: Chloride 122 mmol/L (98-107)
[2023-01-12 07:24] LABS: Sodium 144 mmol/L (136-145)
[2023-01-12 07:27] LABS: Anion Gap 10.5 mEq/L (5-15); Blood Urea Nitrogen 17 mg/dl (7-17); Calcium 8.1 mg/dl (8.4-10.2); Carbon Dioxide 14 mmol/L (22.0-30.0); Creatinine Clearance Estimated 63 mL/min (50-200); Estimated Glomerular Filt Rate 61 ml/min (>60); GFR (African American) 74 ML/MIN (>60); Glucose 221 mg/dl (74-100)
[2023-01-12 07:31] LABS: Potassium 2.5 mmoL/L (3.5-5.1)
[2023-01-12 07:35] LABS: Lymphocytes % 6 % (10-50); Monocytes % 5 % (2-9); Neutrophils % 89 % (42-76); Total Cells Counted 100
[2023-01-12 07:36] LABS: Platelet Estimate Normal; RBC Morphology Normal
--- NOTE | 2023-01-12 08:09 | PC.NURSE ---
Lab values reported to MD White. New orders received to give 2 runs of Potassium 20 meq IV.
--- NOTE | 2023-01-12 08:51 | EXP.PHA.PN ---
Subjective *Date: 01/12/23 *Time: 08:51 Medical Exam Vital signs and Labs for Last 24 Hours: Vital Signs Temp Pulse Pulse Resp BP Pulse Ox 01/12/23 08:00 89 19 168/71 H 97 01/12/23 07:44 96.2 F L 01/12/23 07:00 100 H 19 145/62 H 98 01/12/23 05:00 98.3 F 101 H 28 H 141/55 H 95 01/12/23 04:00 109 H 28 H 95 01/12/23 04:00 110 H 01/12/23 04:00 103.4 F H 108 H 28 H 152/61 H 01/12/23 03:08 102.5 F H 01/12/23 02:00 111 H 30 H 158/70 H 95 01/11/23 20:50 100 H 01/12/23 00:00 115 H 26 H 154/95 H 97 01/12/23 00:00 110 H 01/11/23 22:00 98 H 18 142/64 H 96 01/11/23 20:00 97.7 F 108 H 18 168/77 H 96 01/11/23 20:00 95 H 01/11/23 20:00 101 H 98 01/11/23 18:00 94 H 16 140/69 96 01/11/23 18:00 99.6 F 01/11/23 16:00 80 01/11/23 16:00 80 24 131/58 L 97 01/11/23 14:00 88 22 152/62 H 97 01/11/23 16:00 99.2 F 01/11/23 12:00 70 01/11/23 14:00 101.6 F H 01/11/23 12:00 73 22 133/54 L 97 01/11/23 10:00 144 H 22 155/73 H 96 01/11/23 10:00 99.6 F Intake and Output 01/11/23 01/12/23 01/12/23 23:59 07:59 15:59 Intake Total 1475 / 3052 1493 / 2782 1289 / 2782 Output Total 400 / 1201 Balance 1075 / 1851 1492 / 2781 1289 / 2781 Intake: Intake, Oral Amount 240 / 820 220 / 980 760 / 980 Intake, Total IV Amount 1235 / 2232 1273 / 1802 529 / 1802 0.9 % Sodium Chloride 1000ML 1, 847 / 1349 555 / 1071 516 / 1071 000 ml @ 100 mls/hr IV .Q10H [facility] Rx#:[id number] KCl 20mEq/100ml 100 ml @ 50 mls 50 / 50 /hr IV Q2H [facility] Rx#:[id number] KCl 20mEq/100ml 100 ml @ 50 mls 200 / 200 /hr IV Q2H ALLEN Rx#:[id number] KCl 20mEq/100ml 100 ml @ 50 mls 200 / 200 /hr IV Q2H ALLEN Rx#:[id number] Metronidaz/Sod Chl 500 mg In 200 / 400 200 / 200 100 ml @ 100 mls/hr IV Q6H [facility]EN Rx#:[id number] dilTIAZem HCL 100 mg In 0.9 % 188 / 233 68 / 81 13 / 81 Sodium Chloride 100 ml @ 5 mls/ hr IV .Q20H [facility]EN Rx#:[id number] Output: Output, Urine Amount 0 / 1 1 / 1 Output, Urine Amount (Catheter) 400 / 1200 Lea 400 / 1200 Other: Number of Unmeasured Voids 0 1 Number of Bowel Movements 1 1 Weight 83.143 kg Patient Weight 01/12/23 23:59 Weight 83.143 kg Laboratory Results - last 24 hr 01/11/23 06:07: POC Glucose 242 H 01/11/23 08:25: Sodium 146 H, Potassium 2.0 L* D, Chloride 124 H, Carbon Dioxide 10 L, Anion Gap 14.0, BUN 19 H D, Creatinine 1.00 D, Estimated Creat Clear 64, Estimated GFR 54 L, Est GFR ( Amer) 65 D, Glucose 277 H, Calcium 8.8, TSH 0.36 L 01/11/23 10:33: POC Glucose 271 H 01/11/23 16:15: Sodium 148 H, Potassium 2.5 L* D, Chloride 125 H, Carbon Dioxide 12 L, Anion Gap 13.5, BUN 19 H, Creatinine 1.00, Estimated Creat Clear 64, Estimated GFR 54 L, Est GFR ( Amer) 65, Glucose 255 H, Calcium 8.8 01/11/23 16:24: POC Glucose 265 H 01/11/23 20:37: POC Glucose 232 H 01/12/23 00:15: Sodium 140, Potassium 2.7 L*, Chloride 120 H, Carbon Dioxide 11 L, Anion Gap 11.7, BUN 18 H, Creatinine 0.90, Estimated Creat Clear 64, Estimated GFR 61, Est GFR ( Amer) 74, Glucose 224 H, Calcium 8.2 L 01/12/23 00:41: POC Glucose 219 H 01/12/23 06:10: POC Glucose 212 H 01/12/23 06:41: WBC 14.1 H, RBC 3.65 L, Hgb 9.5 L D, Hct 29.9 L, MCV 82.1, MCH 25.7 L, MCHC 31.3 L, RDW 16.2, Plt Count 192, MPV 10.4, Neut % (Auto) 90.8 H, Lymph % (Auto) 3.6 L, [place] % (Auto) 4.3, Eos % (Auto) 1.0, Baso % (Auto) 0.2, Neut # (Auto) 12.8 H, Lymph # (Auto) 0.5 L, [place] # (Auto) 0.6, Eos # (Auto) 0.1, Baso # (Auto) 0.0, Total Counted 100, Neutrophils % (Manual) 89 H, Lymphocytes % (Manual) 6 L, Monocytes % (Manual) 5, Platelet Estimate Normal, RBC Morphology Normal 01/12/23 06:41: Sodium 144, Potassium 2.5 L*, Chloride 122 H, Carbon Dioxide 14 L, Anion Gap 10.5, BUN 17, Creatinine 0.90, Estimated Creat Clear 63, E
--- NOTE | 2023-01-12 08:59 | DIET.NUTRFU ---
Based on provider note on 01/11 patient is more alert able to talk and respond. She is also tolerating oral intake. She was assisted with dinner on 01/11 and consumed 25%. She continues on MSOFT with thin liquids, glucerna is also being provided on all tray. She continues on IVF and ABT tx. Will continue current diet and monitor po intake
--- NOTE | 2023-01-12 09:49 | PC.NURSE ---
Po diltiazem administered. Will DC Diltiazem gtt in an hour.
--- NOTE | 2023-01-12 10:45 | PC.NURSE ---
Diltiazem gtt turned off.
[2023-01-12 11:02] LABS: POC Glucose,Bedside 338 (70-110)
[2023-01-12 16:49] LABS: POC Glucose,Bedside 338 (70-110)
[2023-01-12 17:41] LABS: Chloride 117 mmol/L (98-107); Sodium 137 mmol/L (136-145)
[2023-01-12 17:44] LABS: Anion Gap 11.8 mEq/L (5-15); Blood Urea Nitrogen 17 mg/dl (7-17); Carbon Dioxide 11 mmol/L (22.0-30.0); Creatinine Clearance Estimated 63 mL/min (50-200); Estimated Glomerular Filt Rate 70 ml/min (>60); GFR (African American) 84 ML/MIN (>60)
[2023-01-12 17:45] LABS: Calcium 7.8 mg/dl (8.4-10.2); Glucose 323 mg/dl (74-100)
[2023-01-12 18:06] LABS: Potassium 2.8 mmoL/L (3.5-5.1)
--- NOTE | 2023-01-12 18:35 | PC.NURSE ---
Pt's HR noted to be tachycardic. 120s. PVC's also noted. Metoprolol 5 mg IV administered. HR 92 at this time.
[2023-01-13] VITALS (9 sets, daily range): BP systolic 114–134; BP diastolic 56–73; PULSE 70–140; RESP 18–35; TEMP 36.6–39.4; O2SAT 94–99; BMI 34.9
--- NOTE | 2023-01-13 00:30 | PC.NURSE ---
removed heavy blankets and placed fan on pt
--- NOTE | 2023-01-13 04:13 | PC.NURSE ---
pt stated I'm freezing , temp 98.6, placed blanket back over pt and turned fan off at this time
[2023-01-13 05:54] LABS: Basophils % 0.1 % (0.1-2.0); Eosinophils % 0.3 % (0.1-12.0); Hematocrit 30.8 % (37.0-47.0); Hemoglobin 9.7 g/dL (12.2-16.2); Lymphocytes # 0.8 K/mm3 (0.7-4.5); Lymphocytes % 6.2 % (10-50); Mean Corpuscular HGB Conc 31.4 g/dL (31.8-35.4); Mean Corpuscular Hemoglobin 26.4 pg (27.0-31.2); Mean Platelet Volume 9.5 fl (7.4-10.4); Monocytes # 0.5 K/mm3 (0.1-1.0); Monocytes % 3.8 % (1.7-9.3); Neutrophils # 11.5 K/mm3 (1.8-7.8); Neutrophils % 89.7 % (37.0-80.0); Platelet Count 177 K/mm3 (142-424); Red Blood Count 3.67 M/mm3 (4.20-5.40); Red Cell Distribution Width 16.3 % (11.5-17.5); White Blood Count 12.9 K/mm3 (4.8-10.8)
[2023-01-13 05:57] LABS: MANUAL DIFFERENTIAL MANUAL DIFFERENTIAL (MANUAL DIFF)
[2023-01-13 05:58] LABS: Chloride 120 mmol/L (98-107); Sodium 140 mmol/L (136-145)
[2023-01-13 06:01] LABS: Blood Urea Nitrogen 14 mg/dl (7-17); Creatinine Clearance Estimated 65 mL/min (50-200); Estimated Glomerular Filt Rate 81 ml/min (>60); GFR (African American) 98 ML/MIN (>60)
[2023-01-13 06:02] LABS: Anion Gap 11.7 mEq/L (5-15); Calcium 7.5 mg/dl (8.4-10.2); Carbon Dioxide 11 mmol/L (22.0-30.0); Glucose 226 mg/dl (74-100)
[2023-01-13 06:27] LABS: Potassium 2.7 mmoL/L (3.5-5.1)
--- NOTE | 2023-01-13 06:34 | PC.NURSE ---
notified MD White of pt's critical potassium of 2.7, no new orders at this time
[2023-01-13 07:23] LABS: Lymphocytes % 4 % (10-50); Monocytes % 1 % (2-9); Neutrophils % 95 % (42-76); Platelet Estimate Normal; RBC Morphology Normal; Total Cells Counted 100
--- NOTE | 2023-01-13 08:27 | DIET.NUTRFU ---
Spoke to nursing this morning, she was able to get patient to consume strawberry glucerna this AM plus her pills. She refused all meals over weekend. During rounds she seemed more alert answered Dr. Franks questions. She continues MSOFT, ground meat, requiring assistance with meals. No IVF fluid at this time. Depleted K, ordered supplement. Will continue to monitor po intake
--- NOTE | 2023-01-13 08:35 | EXP.ACUTE.PN ---
Subjective *Date: 01/13/23 *Time: 08:35 Interval history: Last night patient was a little somnolent and had a little bit of a hard time taking her p.o. medications but this morning is much more alert and nurses report that she is taking her p.o. medicines well and has drank a bottle of nutritional supplement Glucerna. She is a little bit more talkative today, denies pain, states that she does not want to eat but will drink something and is reporting no shortness of air. Medical Exam Vital signs and Labs for Last 24 Hours: Vital Signs Temp Pulse Pulse Resp BP Pulse Ox 01/13/23 04:00 92 H 01/13/23 04:00 98.6 F 100 H 25 H 114/56 L 97 01/13/23 00:00 116 H 01/12/23 20:00 104 H 01/13/23 02:38 99.6 F 01/13/23 00:00 101.6 F H 01/13/23 00:00 117 H 24 126/66 94 L 01/12/23 20:00 97.5 F L 82 18 138/81 97 01/12/23 16:00 90 01/12/23 12:00 90 01/12/23 16:00 97.6 F 94 H 16 147/66 H 99 01/12/23 15:04 98.0 F 01/12/23 14:00 81 20 145/58 H 97 01/12/23 12:00 96.7 F L 86 22 162/70 H 95 01/12/23 10:00 87 18 163/60 H 98 Intake and Output 01/12/23 01/13/23 01/13/23 19:59 03:59 11:59 Intake Total 2840 / 3320 480 / 3320 Output Total 600 / 1450 850 / 1450 Balance 2240 / 1870 -370 / 1870 Intake: Intake, Oral Amount 2440 / 2920 480 / 2920 Intake, Total IV Amount 400 / 400 KCl 20mEq/100ml 100 ml @ 50 mls 200 / 200 /hr IV Q2H [facility]EN Rx#:[id number] Metronidaz/Sod Chl 500 mg In 200 / 200 100 ml @ 100 mls/hr IV Q6H ALLEN Rx#:[id number] Output: Output, Urine Amount 0 / 0 Output, Urine Amount (Catheter) 600 / 1450 850 / 1450 Lea 600 / 1450 850 / 1450 Other: Number of Unmeasured Voids 0 Number of Bowel Movements 0 Weight 190 lb 1 oz Patient Weight 01/13/23 11:59 Weight 190 lb 1 oz Laboratory Results - last 24 hr 01/12/23 10:50: POC Glucose 338 H* 01/12/23 16:35: POC Glucose 338 H* 01/12/23 17:00: Sodium 137, Potassium 2.8 L*, Chloride 117 H, Carbon Dioxide 11 L, Anion Gap 11.8, BUN 17, Creatinine 0.80, Estimated Creat Clear 63, Estimated GFR 70, Est GFR ( Amer) 84, Glucose 323 H D, Calcium 7.8 L 01/13/23 05:30: WBC 12.9 H, RBC 3.67 L, Hgb 9.7 L, Hct 30.8 L, MCV 84.0, MCH 26.4 L, MCHC 31.4 L, RDW 16.3, Plt Count 177, MPV 9.5, Neut % (Auto) 89.7 H, Lymph % (Auto) 6.2 L, [place] % (Auto) 3.8, Eos % (Auto) 0.3, Baso % (Auto) 0.1, Neut # (Auto) 11.5 H, Lymph # (Auto) 0.8, [place] # (Auto) 0.5, Eos # (Auto) 0.0, Baso # (Auto) 0.0, Total Counted 100, Neutrophils % (Manual) 95 H, Lymphocytes % (Manual) 4 L, Monocytes % (Manual) 1 L, Platelet Estimate Normal, RBC Morphology Normal 01/13/23 05:30: Sodium 140, Potassium 2.7 L*, Chloride 120 H, Carbon Dioxide 11 L, Anion Gap 11.7, BUN 14, Creatinine 0.70, Estimated Creat Clear 65, Estimated GFR 81, Est GFR ( Amer) 98, Glucose 226 H D, Calcium 7.5 L I & O for Labs for Last 24 Hours: Intake & Output 01/10/23 01/11/23 01/12/23 01/13/23 11:59 11:59 11:59 11:59 Intake Total 2296 / 2296 1576 / 1576 4269 / 4269 3320 / 3320 Output Total 2500 / 2500 2901 / 2901 401 / 401 1450 / 1450 Balance -204 / -204 -1325 / -1325 3868 / 3868 1870 / 1870 Weight 188 lb 2 oz 188 lb 1.998 oz 183 lb 4.8 oz 190 lb 1 oz Comment:: Patient is more alert and talkative than yesterday. She has heart rates in the low 100s, occasional ectopic beats. Lungs have good air movement. Abdomen is distended and tympanitic but again this is her baseline at the custodial. She is soft and has no pain. Distal edema is noted. But improved over baseline for Assessment and Plan *Assessment and plan (1) Pyelonephritis: Status: Acute Category: Medical Code(s): N12 - Tubulo-interstitial nephritis, not specified as acute or chronic (2) Acute UTI (urinary tract infection): Status: Acute Category: Medical Code(s): N39.0 - Urinary tra
[2023-01-13 08:40] LABS: Magnesium 1.3 mg/dl (1.6-2.3)
[2023-01-13 10:50] LABS: POC Glucose,Bedside 280 (70-110)
--- NOTE | 2023-01-13 11:27 | EXP.PHA.PN ---
Subjective *Date: 01/13/23 *Time: 11:27 Medical Exam Vital signs and Labs for Last 24 Hours: Vital Signs Temp Pulse Pulse Resp BP Pulse Ox 01/13/23 08:00 140 H 01/13/23 04:00 92 H 01/13/23 04:00 98.6 F 100 H 25 H 114/56 L 97 01/13/23 00:00 116 H 01/12/23 20:00 104 H 01/13/23 02:38 99.6 F 01/13/23 00:00 101.6 F H 01/13/23 00:00 117 H 24 126/66 94 L 01/12/23 20:00 97.5 F L 82 18 138/81 97 01/12/23 16:00 90 01/12/23 12:00 90 01/12/23 16:00 97.6 F 94 H 16 147/66 H 99 01/12/23 15:04 98.0 F 01/12/23 14:00 81 20 145/58 H 97 01/12/23 12:00 96.7 F L 86 22 162/70 H 95 Intake and Output 01/12/23 01/13/23 01/13/23 23:59 07:59 15:59 Intake Total 1500 / 5634 480 / 480 Output Total 600 / 601 850 / 850 Balance 900 / 5033 -850 / -370 480 / -370 Intake: Intake, Oral Amount 1200 / 3420 480 / 480 Intake, Total IV Amount 300 / 2214 KCl 20mEq/100ml 100 ml @ 50 mls 200 / 400 /hr IV Q2H ALLEN Rx#:[id number] Metronidaz/Sod Chl 500 mg In 100 / 400 100 ml @ 100 mls/hr IV Q6H ALLEN Rx#:[id number] Output: Output, Urine Amount 0 / 1 Output, Urine Amount (Catheter) 600 / 600 850 / 850 Lea 600 / 600 850 / 850 Other: Number of Unmeasured Voids 0 Number of Bowel Movements 0 1 Weight 86.211 kg Patient Weight 01/13/23 23:59 Weight 86.211 kg Laboratory Results - last 24 hr 01/12/23 16:35: POC Glucose 338 H* 01/12/23 17:00: Sodium 137, Potassium 2.8 L*, Chloride 117 H, Carbon Dioxide 11 L, Anion Gap 11.8, BUN 17, Creatinine 0.80, Estimated Creat Clear 63, Estimated GFR 70, Est GFR ( Amer) 84, Glucose 323 H D, Calcium 7.8 L 01/13/23 05:30: WBC 12.9 H, RBC 3.67 L, Hgb 9.7 L, Hct 30.8 L, MCV 84.0, MCH 26.4 L, MCHC 31.4 L, RDW 16.3, Plt Count 177, MPV 9.5, Neut % (Auto) 89.7 H, Lymph % (Auto) 6.2 L, [place] % (Auto) 3.8, Eos % (Auto) 0.3, Baso % (Auto) 0.1, Neut # (Auto) 11.5 H, Lymph # (Auto) 0.8, [place] # (Auto) 0.5, Eos # (Auto) 0.0, Baso # (Auto) 0.0, Total Counted 100, Neutrophils % (Manual) 95 H, Lymphocytes % (Manual) 4 L, Monocytes % (Manual) 1 L, Platelet Estimate Normal, RBC Morphology Normal 01/13/23 05:30: Sodium 140, Potassium 2.7 L*, Chloride 120 H, Carbon Dioxide 11 L, Anion Gap 11.7, BUN 14, Creatinine 0.70, Estimated Creat Clear 65, Estimated GFR 81, Est GFR ( Amer) 98, Glucose 226 H D, Calcium 7.5 L 01/13/23 05:30: Magnesium 1.3 L 01/13/23 10:41: POC Glucose 280 H I & O for Labs for Last 24 Hours: Intake & Output 01/10/23 01/11/23 01/12/23 01/13/23 23:59 23:59 23:59 23:59 Intake Total 2934 / 3212 2113 / 3052 5634 / 5634 480 / 480 Output Total 3800 / 4600 1201 / 1201 601 / 601 850 / 850 Balance -866 / -1388 912 / 1851 5033 / 5033 -370 / -370 Weight 85.332 kg 85.332 kg 83.143 kg 86.211 kg The patient's infection will respond to the chosen ABx?: Yes (CULTURES= PROTEUS S TO CEFTRIAXONE) Is the patient receiving the right drug, dose, and route?: Yes Could a more targeted ABx be ordered?: No
--- NOTE | 2023-01-13 11:58 | PC.NURSE ---
Pts temp was 103.0 rectal, ice packs placed in axillary and groin areas. cool rag placed under neck, fan placed in room. will recheck.
--- NOTE | 2023-01-13 13:45 | HMH.OTEV ---
OT Inpatient Evaluation Rehab OT IP Evaluation Start: 01/13/23 08:35 Freq: ONCE Status: Active Protocol: Document [facility]13[facility]23 13[facility] (Rec: 01/13/23 13:45 [facility] [id number]) Rehab OT IP Assessment Subjective History Pt oriented x 3 on arrival. Pt agreeable to engage in therapy evaluation. Pt was admitted on 01/09/23 due to fever, mental status change, and polynephritis. Pt was living at [facility] prior to being in the hosptial. At the custodial pt required assistance with all ADLs and was dependent upon staff for all IADLs. Pt was dependent for all functional transfers using a lift and was wheelchair bound. Pt has a past medical history of: Afib Allergies Aphasia Arthritis Cannot walk Cholecystectomy planned Constipation Dementia Diabetes Edema GERD (gastroesophageal reflux disease) High cholesterol History of COVID-19 Hypertension Kidney stone Obesity Stroke Urinary incontinence Vascular dementia Subjective I don't want to get up. Objective Patient Orientation Person,Place,Birthday Upper Extremity Gross ROM Min Limitation <25% Bed Mobility bed mobility-scooting,bed mobility - supine/sit,bed mobility - rolling Assist Level Total/Dependent (100%) Rehab OT IP prob,goals,plan Problems Date of Evaluation: 01/13/23 Rehab Potential Rehab Potential Innapropriate for Skilled Therapy Discharge Plan OT Discharge Plan Pt appears to be at her baseline with ADL independence and functional
--- NOTE | 2023-01-13 14:04 | HMH.PTEV ---
Physical Therapy Evaluation Rehab PT IP Evaluation Start: 01/13/23 08:35 Freq: ONCE Status: Active Protocol: Document 01/13/23 13:43 BILLYBILL (Rec: 01/13/23 14:03 OLEGARIO [id number]) Subjective/History History History Pt is a 77 year old female that is a long-term resident of a local long-term who has been affected by stroke disease and has hemiparesis. Pt had an episode at the long-term where she became somewhat unresponsive with tachycardia and was brought to the hospital. Pt was admitted to the hospital for SIRS, UTI , urinary retintion and mental status changes. Subjective Subjective Pt presents supine in bed, with encouragement pt is agreeable to therapy initial evaluation. Pt denies reports of pain at rest, expresses outward signs of pain such as grimacing during mobility assessment. Pt's speech is difficult to understand, but is able to answer yes/no questions. Pt lives at [facility], dependent for all B/IADL's at baseline. Per pt she does not walk and uses a w/c for mobility. Pt reports that she usually does not get out of bed much. Rehab PT IP Eval Objective Appearance Patient Behavior Fatigued Patient Orientation Person,Place,Birthday Difficulty following instructions mild Speech Pattern Delayed,Slurred,Garbled, Aphasic,Mumbled,Poor Articulation Ambulation Patient Able to Ambulate No Balance Ability to Arise Unable Sitting Balance Leans or slides in chair Dynamic Sitting Balance Ability Zero Transfers Bed Transfer Ability Total/Dependent (100%) ROM LLE PT ROM Status WFL RLE PT ROM Status WFL MMT RLE PT MMT ABN Abnormal MMT Grade Gross RLE MMT less than 3/5 based on mobility, pt able to
--- NOTE | 2023-01-13 15:35 | PC.NURSE ---
PT HAS BEEN A&OX4 THIS SHIFT. TOLERATING RA WELL. PT HAS LET THIS NURSE FEED HER POPSICLE AND ICE CREAM, HAS ALSO DRANK WATER, TOLERATED WELL. NO NEEDS OR C/O NOTED THUS FAR. PT DID SPIKE ANOTHER FEVER OF 103, ACTIVE COOLING IN PLACE. DOWN TO 99.6. PT BEING TURNED Q2H, ORAL CARE PROVIDED. DRESSINGS PLACED TO INNER THIGHS THIS SHIFT/ F/C DRAINING DARK YELLOW URINE. PT MOVED TO ROOM 214 ALSO, FAMILY HAS BEEN NOTIFIED. VSS.
[2023-01-13 15:56] LABS: POC Glucose,Bedside 358 (70-110)
[2023-01-13 21:11] LABS: POC Glucose,Bedside 250 (70-110)
[2023-01-13 21:11] LABS: POC Glucose,Bedside 278 (70-110)
[2023-01-13 23:54] LABS: POC Glucose,Bedside 372 (70-110)
[2023-01-14] VITALS (7 sets, daily range): BP systolic 120–149; BP diastolic 56–88; PULSE 60–100; RESP 19–24; TEMP 36.8–38.7; O2SAT 92–98; BMI 35.4
[2023-01-14 05:51] LABS: Basophils % 0.3 % (0.1-2.0); Eosinophils # 0.1 K/mm3 (0.0-0.4); Eosinophils % 0.6 % (0.1-12.0); Hematocrit 34.6 % (37.0-47.0); Hemoglobin 10.5 g/dL (12.2-16.2); Lymphocytes # 1.1 K/mm3 (0.7-4.5); Lymphocytes % 7.6 % (10-50); Mean Corpuscular HGB Conc 30.4 g/dL (31.8-35.4); Mean Corpuscular Hemoglobin 25.3 pg (27.0-31.2); Mean Corpuscular Volume 83.4 fl (81-99); Mean Platelet Volume 9.5 fl (7.4-10.4); Monocytes # 0.7 K/mm3 (0.1-1.0); Monocytes % 4.7 % (1.7-9.3); Neutrophils # 11.9 K/mm3 (1.8-7.8); Neutrophils % 86.7 % (37.0-80.0); Platelet Count 143 K/mm3 (142-424); Red Blood Count 4.15 M/mm3 (4.20-5.40); Red Cell Distribution Width 16.6 % (11.5-17.5); White Blood Count 13.8 K/mm3 (4.8-10.8)
[2023-01-14 05:53] LABS: MANUAL DIFFERENTIAL MANUAL DIFFERENTIAL (MANUAL DIFF)
[2023-01-14 06:01] LABS: POC Glucose,Bedside 222 (70-110)
[2023-01-14 06:24] LABS: Chloride 117 mmol/L (98-107); Sodium 140 mmol/L (136-145)
[2023-01-14 06:27] LABS: Anion Gap 11.4 mEq/L (5-15); Blood Urea Nitrogen 15 mg/dl (7-17); Calcium 8.1 mg/dl (8.4-10.2); Carbon Dioxide 14 mmol/L (22.0-30.0); Creatinine Clearance Estimated 66 mL/min (50-200); Estimated Glomerular Filt Rate 81 ml/min (>60); GFR (African American) 98 ML/MIN (>60); Glucose 229 mg/dl (74-100)
[2023-01-14 06:57] LABS: Potassium 2.4 mmoL/L (3.5-5.1)
--- NOTE | 2023-01-14 06:59 | PC.NURSE ---
Paged at this time to report critical K+, awaiting call back
[2023-01-14 07:40] LABS: Lymphocytes % 4 % (10-50); Monocytes % 7 % (2-9); Neutrophils % 89 % (42-76); Platelet Estimate Slight Decrease; RBC Morphology Normal; Total Cells Counted 100
--- NOTE | 2023-01-14 08:12 | CT_ITS ---
FINAL REPORT TECHNIQUE: Postcontrast axial images through the abdomen and pelvis were performed. This study was performed with techniques to keep radiation doses as low as reasonably achievable, (ALARA). Individualized dose reduction techniques using automated exposure control or adjustment of mA and/or kV according to the patient's size were employed. CLINICAL HISTORY: f/u rectal thickening, fever COMPARISON: 01/08/2023 FINDINGS: Abdomen: There are small pleural effusions and bibasilar atelectasis. The liver has a mildly lobular contour worrisome for cirrhosis. A mass is seen adjacent to the gastric fundus with calcification measuring 5.3 cm, stable. The gallbladder is not seen, may be surgically absent. The spleen is unremarkable. The adrenals are normal. The pancreas is unremarkable. There is staghorn calculus in the right kidney with mild right hydronephrosis and right perinephric stranding. 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 There are small bilateral renal cysts. The previously seen gas in the renal collecting system has resolved. There is diffuse vascular calcification. Mild anasarca is noted. The aorta is normal in caliber. No free fluid or adenopathy is identified. Pelvis: The appendix is not identified. The colon is distended with wall thickening of the sigmoid colon and rectum, may represent colitis. There is soft tissue fullness at the level of the anus, may be inflammatory or neoplastic. Lea catheter is noted. There are severe degenerative changes of the hips. No free fluid, free air, abscess or adenopathy is identified. IMPRESSION: Findings worrisome for cirrhosis. Mild right hydronephrosis and right perinephric stranding. 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 Findings may represent colitis. Soft tissue fullness at the level of the anus, may be inflammatory or neoplastic. Reviewed, Interpreted and Dictated by Luis Armando Damico III, MD Transcribed by Violeta Sweeney Authenticated and [facility]
--- NOTE | 2023-01-14 08:13 | EXP.ACUTE.PN ---
Subjective *Date: 01/14/23 *Time: 08:13 Interval history: Patient has been moved out of stepdown and has been better vis-?-vis cardiac issues with heart rates below 100 and controlled A-fib. Blood pressures been acceptable. Unfortunately, she has had a febrile episode this morning. She is alert, does not think she wants to eat this morning but feels better. PT, OT and nursing notes reviewed. Medical Exam Vital signs and Labs for Last 24 Hours: Vital Signs Temp Pulse Pulse Resp BP BP Pulse Ox 01/14/23 04:00 100.0 F H 91 H 20 120/88 93 L 01/13/23 20:00 70 01/14/23 04:00 80 01/14/23 00:00 60 01/13/23 20:00 70 01/14/23 00:00 98.3 F 61 19 124/56 L 92 L 01/13/23 20:00 98.2 F 91 H 18 130/71 99 01/13/23 16:00 75 01/13/23 16:00 97.8 F 80 32 H 117/72 97 01/13/23 13:30 99.6 F 01/13/23 12:00 90 01/13/23 11:53 103.0 F H 90 35 H 134/73 94 L Intake and Output 01/13/23 01/14/23 01/14/23 19:59 03:59 11:59 Intake Total 720 / 1220 500 / 1220 Output Total 1400 / 2400 700 / 2400 300 / 2400 Balance -680 / -1180 -200 / -1180 -300 / -1180 Intake: Intake, Oral Amount 720 / 720 Intake, Total IV Amount 250 / 250 Ceftriaxone 1 gm 1 gm In 0.9 % 50 / 50 Sodium Chloride 50 ml @ 100 mls /hr IV Q24H [facility] Rx#:[id number] Metronidaz/Sod Chl 500 mg In 200 / 200 100 ml @ 100 mls/hr IV Q6H [facility] Rx#:[id number] Infusion Intake 250 / 250 Ceftriaxone 1 gm 1 gm In 0.9 % 50 / 50 Sodium Chloride 50 ml @ 100 mls /hr IV Q24H [facility] Rx#:[id number] Metronidaz/Sod Chl 500 mg In 200 / 200 100 ml @ 100 mls/hr IV Q6H [facility] Rx#:[id number] Output: Output, Urine Amount 1400 / 2400 700 / 2400 300 / 2400 Other: Number of Unmeasured Voids 0 1 1 Number of Bowel Movements 1 1 Weight 192 lb 8 oz Patient Weight 01/14/23 11:59 Weight 192 lb 8 oz Laboratory Results - last 24 hr 01/12/23 21:09: POC Glucose 278 H 01/13/23 05:30: Magnesium 1.3 L 01/13/23 06:11: POC Glucose 250 H 01/13/23 10:41: POC Glucose 280 H 01/13/23 15:47: POC Glucose 358 H* 01/13/23 20:21: POC Glucose 372 H* 01/14/23 05:43: WBC 13.8 H, RBC 4.15 L, Hgb 10.5 L, Hct 34.6 L, MCV 83.4, MCH 25.3 L, MCHC 30.4 L, RDW 16.6, Plt Count 143, MPV 9.5, Neut % (Auto) 86.7 H, Lymph % (Auto) 7.6 L, [place] % (Auto) 4.7, Eos % (Auto) 0.6, Baso % (Auto) 0.3, Neut # (Auto) 11.9 H, Lymph # (Auto) 1.1, [place] # (Auto) 0.7, Eos # (Auto) 0.1, Baso # (Auto) 0.0, Total Counted 100, Neutrophils % (Manual) 89 H, Lymphocytes % (Manual) 4 L, Monocytes % (Manual) 7, Platelet Estimate Slight decrease, RBC Morphology Normal 01/14/23 05:43: Sodium 140, Potassium 2.4 L*, Chloride 117 H, Carbon Dioxide 14 L, Anion Gap 11.4, BUN 15, Creatinine 0.70, Estimated Creat Clear 66, Estimated GFR 81, Est GFR ( Amer) 98, Glucose 229 H, Calcium 8.1 L 01/14/23 05:54: POC Glucose 222 H I & O for Labs for Last 24 Hours: Intake & Output 01/11/23 01/12/23 01/13/23 01/14/23 11:59 11:59 11:59 11:59 Intake Total 1576 / 1576 4269 / 4269 3320 / 3320 1220 / 1220 Output Total 2901 / 2901 401 / 401 1450 / 1450 2400 / 2400 Balance -1325 / -1325 3868 / 3868 1870 / 1870 -1180 / -1180 Weight 188 lb 1.998 oz 183 lb 4.8 oz 190 lb 1 oz 192 lb 8 oz Microbiology Reports for the Last 24 Hours: Microbiology 01/08/23 22:45 Urine,Catheterized Urine Culture - Final Klebsiella pneumoniae Proteus mirabilis 01/08/23 22:28 Blood Blood Culture - Final NO GROWTH AFTER 5 DAYS 01/08/23 22:28 Blood Blood Culture - Final NO GROWTH AFTER 5 DAYS Comment:: Temperature elevation noted. Heart rate in the low 90s. Blood pressure acceptable, abdomen remains distended and tympanitic but this is her baseline. She has clear lungs. Trace ankle edema as previo
--- NOTE | 2023-01-14 09:04 | DIET.NUTRFU ---
Patient was showing some improvement yesterday, consumed 2 and 3/4 of Glucernas' throughout day with some ice cream and Popsicle. Also worked with therapy. Today she has a fever is febrile and now NPO. BS elevated >200, insulin in place. Potassium depleted at 2.4L, KCL ordered. No IVF at this time. Based on minimal nutritional intake she is triggering for malnutrition. When medically feasible encourage supplement and meal intake.
--- NOTE | 2023-01-14 09:15 | XR_ITS ---
FINAL REPORT CLINICAL HISTORY: Confirm PICC line placement COMPARISON: January 08, 2023 FINDINGS: A new left-sided PICC line terminates in the region of the left brachiocephalic vein. The heart size is normal. The mediastinum is within normal limits. There is no acute cardiopulmonary process. There is no pleural effusion. There is no pneumothorax. The bony thorax is intact. IMPRESSION: PICC line terminates in the region of the left brachial cephalic vein. Reviewed, Interpreted and Dictated by Luis Armando Damico III, MD Transcribed by Kunal Vigil Authenticated and [facility]
[2023-01-14 12:31] LABS: POC Glucose,Bedside 352 (70-110)
[2023-01-14 15:49] LABS: POC Glucose,Bedside 350 (70-110)
--- NOTE | 2023-01-14 19:45 | PC.NURSE ---
PT HAS SLEPT T/O MAJORITY OF DAY, BUT IS A&O UPON AWAKENING. PT REMAINS EDEMATOUS. F/C DRAINING DARK YELLOW URINE. TOLERATED PICC PLACEMENT WELL. HAS DRANK TONIGHT BUT HASN'T HAD A GREAT APPETITE. DID HAVE TEMP OF 102.3 AT END OF SHIFT. TYLENOL GIVEN, ACTIVE COOLING IN PLACE. NO OTHER NEEDS NOTED.
[2023-01-14 21:00] LABS: POC Glucose,Bedside 293 (70-110)
[2023-01-15] VITALS (9 sets, daily range): BP systolic 100–148; BP diastolic 55–79; PULSE 60–100; RESP 18–22; TEMP 36.2–38.4; O2SAT 97–99; BMI 35.4
[2023-01-15 05:19] LABS: POC Glucose,Bedside 340 (70-110)
[2023-01-15 05:35] LABS: Basophils % 0.3 % (0.1-2.0); Eosinophils # 0.1 K/mm3 (0.0-0.4); Eosinophils % 0.5 % (0.1-12.0); Hemoglobin 10.5 g/dL (12.2-16.2); Lymphocytes # 1.7 K/mm3 (0.7-4.5); Lymphocytes % 12.8 % (10-50); Mean Corpuscular HGB Conc 31.7 g/dL (31.8-35.4); Mean Corpuscular Hemoglobin 25.9 pg (27.0-31.2); Mean Corpuscular Volume 81.6 fl (81-99); Mean Platelet Volume 10.5 fl (7.4-10.4); Monocytes # 0.6 K/mm3 (0.1-1.0); Monocytes % 4.4 % (1.7-9.3); Neutrophils # 10.8 K/mm3 (1.8-7.8); Neutrophils % 82.1 % (37.0-80.0); Platelet Count 144 K/mm3 (142-424); Red Blood Count 4.05 M/mm3 (4.20-5.40); White Blood Count 13.1 K/mm3 (4.8-10.8)
[2023-01-15 05:36] LABS: Chloride 114 mmol/L (98-107); Sodium 138 mmol/L (136-145)
[2023-01-15 05:39] LABS: Blood Urea Nitrogen 15 mg/dl (7-17); Creatinine Clearance Estimated 66 mL/min (50-200); Estimated Glomerular Filt Rate 81 ml/min (>60); GFR (African American) 98 ML/MIN (>60)
[2023-01-15 05:40] LABS: Anion Gap 11.5 mEq/L (5-15); Calcium 7.9 mg/dl (8.4-10.2); Carbon Dioxide 15 mmol/L (22.0-30.0); Glucose 321 mg/dl (74-100)
[2023-01-15 05:42] LABS: Potassium 2.5 mmoL/L (3.5-5.1)
--- NOTE | 2023-01-15 05:42 | PC.NURSE ---
Addendum entered by Hernan Zayas RN 01/15/23 05:46: Dr. Kong called for orders, awaiting return call. Original Note: Leena from lab called with critical lab result K+ 2.5, tom MORROW contacted for orders.
[2023-01-15 05:49] LABS: Magnesium 2.1 mg/dl (1.6-2.3)
--- NOTE | 2023-01-15 05:55 | PC.NURSE ---
Dr. oKng returned call with verbal order to stop potassium 40mEq BID and start potassium 40mEq TID. Pharmacy communication sheet filled out and faxed by unit receptionist.
--- NOTE | 2023-01-15 08:53 | EXP.ACUTE.PN ---
Subjective *Date: 01/15/23 *Time: 08:53 Interval history: Patient is much more alert today and talkative, smiles, states that she feels better. PICC line was placed yesterday without complications. Invanz was started after information from the lab finally returned showing Klebsiella in urine with resistance patterns. Ceftriaxone stopped. Invanz started. Medical Exam Vital signs and Labs for Last 24 Hours: Vital Signs Temp Pulse Pulse Resp BP BP Pulse Ox 01/15/23 08:00 97.2 F L 88 19 124/55 L 99 01/15/23 04:00 98.3 F 79 18 143/68 H 97 01/15/23 00:00 98.0 F 61 18 100/58 L 97 01/14/23 19:52 100.3 F H 96 H 22 126/68 96 01/14/23 16:00 68 01/14/23 16:00 98.8 F 81 22 139/78 98 01/14/23 12:00 79 01/14/23 12:00 99.3 F 79 24 140/71 97 Intake and Output 01/14/23 01/15/23 01/15/23 19:59 03:59 11:59 Intake Total 240 / 1480 580 / 1480 660 / 1480 Output Total 1425 / 2550 325 / 2550 800 / 2550 Balance -1185 / -1070 255 / -1070 -140 / -1070 Intake: Intake, Oral Amount 240 / 1380 480 / 1380 660 / 1380 Intake, Total IV Amount 100 / 100 Metronidaz/Sod Chl 500 mg In 100 / 100 100 ml @ 100 mls/hr IV Q6H [facility] Rx#:[id number] Output: Output, Urine Amount 225 / 1025 0 / 1025 800 / 1025 Output, Urine Amount (Catheter) 1200 / 1525 325 / 1525 Lea 1200 / 1525 325 / 1525 Other: Number of Unmeasured Voids 0 0 0 Number of Bowel Movements 1 Weight 192 lb 5 oz Patient Weight 01/15/23 11:59 Weight 192 lb 5 oz Laboratory Results - last 24 hr 01/14/23 12:13: POC Glucose 352 H* 01/14/23 15:39: POC Glucose 350 H* 01/14/23 20:52: POC Glucose 293 H 01/15/23 05:06: WBC 13.1 H, RBC 4.05 L, Hgb 10.5 L, Hct 33.0 L, MCV 81.6, MCH 25.9 L, MCHC 31.7 L, RDW 17.0, Plt Count 144, MPV 10.5 H, Neut % (Auto) 82.1 H, Lymph % (Auto) 12.8, [place] % (Auto) 4.4, Eos % (Auto) 0.5, Baso % (Auto) 0.3, Neut # (Auto) 10.8 H, Lymph # (Auto) 1.7, [place] # (Auto) 0.6, Eos # (Auto) 0.1, Baso # (Auto) 0.0 01/15/23 05:06: Sodium 138, Potassium 2.5 L*, Chloride 114 H, Carbon Dioxide 15 L, Anion Gap 11.5, BUN 15, Creatinine 0.70, Estimated Creat Clear 66, Estimated GFR 81, Est GFR ( Amer) 98, Glucose 321 H D, Calcium 7.9 L 01/15/23 05:06: Magnesium 2.1 D 01/15/23 05:11: POC Glucose 340 H* I & O for Labs for Last 24 Hours: Intake & Output 01/12/23 01/13/23 01/14/23 01/15/23 11:59 11:59 11:59 11:59 Intake Total 4269 / 4269 3320 / 3320 1220 / 1220 1480 / 1480 Output Total 401 / 401 1450 / 1450 2400 / 2400 2550 / 2550 Balance 3868 / 3868 1870 / 1870 -1180 / -1180 -1070 / -1070 Weight 183 lb 4.8 oz 190 lb 1 oz 192 lb 8 oz 192 lb 5 oz Microbiology Reports for the Last 24 Hours: Microbiology 01/08/23 22:45 Urine,Catheterized Urine Culture - Final Klebsiella pneumoniae Proteus mirabilis Comment:: Alert, pleasant. Lungs clear, heart rate regular. Abdomen soft, distended and hypertympanitic but again this is her baseline. PICC line looks good, Lea catheter draining clear yellow urine. Assessment and Plan *Assessment and plan (1) Pyelonephritis: Status: Acute Category: Medical Code(s): N12 - Tubulo-interstitial nephritis, not specified as acute or chronic (2) Acute UTI (urinary tract infection): Status: Acute Category: Medical Code(s): N39.0 - Urinary tract infection, site not specified (3) SIRS (systemic inflammatory response syndrome): Status: Acute Category: Medical Code(s): R65.10 - Systemic inflammatory response syndrome (SIRS) of non-infectious origin without acute organ dysfunction (4) PAF (paroxysmal atrial fibrillation): Status: Acute Category: Medical Code(s): I48.0 - Paroxysmal atrial fibrillation (5) Stroke: Status: Acute Category: Medical Code(s): I63.9 - Cerebral infarction
--- NOTE | 2023-01-15 10:38 | DIET.NUTRFU ---
Addendum entered by Rachelle Prakash RD, LD 01/15/23 14:11: Spoke to patient regarding food preferences, her speech is hard to understand, She dislikes all eggs, oatmeal and did not want biscuit/gravy either. She likes yogurt, sherbert drinks milk. She dislikes fish. She also consumed 2 glucernas at lunch today, none of meal. Will include yogurt with dinner and breakfast tray Original Note: Patient drank 1 whole glucerna today for breakfast some OJ and some water. She is more alert today was talkative during rounds. Spoke to nursing aid and encouraged her to try another glucerna around 10:30 to get more calories and protein in. Labs reviewed, potassium depleted, supplement added. BS elevated, possibly d/t poor intake and infection, insulin in place. BM noted 01/15, urine output good at 800ml, based on here intake. No IVF at this time. She lives at , will return when ready. 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
[2023-01-15 11:31] LABS: POC Glucose,Bedside 351 (70-110)
[2023-01-15 16:57] LABS: POC Glucose,Bedside 427 (70-110)
--- NOTE | 2023-01-15 17:41 | PC.NURSE ---
Pt is alert and oriented x3. She has slept intermittently throughout the shift. +2 generalized edema. She's been afib on telemetry. Her schwab is to bedside draining straw colored urine. Glucose levels have been elevated at 351 and 427 at checks, SSI administered per mar. She reports feeling better today. Bed is locked and in the lowest position, call light is within reach.
[2023-01-15 21:56] LABS: POC Glucose,Bedside 286 (70-110)
[2023-01-16] VITALS (10 sets, daily range): BP systolic 113–133; BP diastolic 47–114; PULSE 70–109; RESP 16–21; TEMP 36.7–37.1; O2SAT 95–99; BMI 35.3
--- NOTE | 2023-01-16 03:59 | PC.NURSE ---
NO ACUTE CHANGES THIS SHIFT. PT HAS NOT SLEPT MUCH THIS SHIFT. LUNG SOUNDS DIMINISHED. PT HAD A FEVER OF 101 AT THE BEGINNING OF THE SHIFT. TREATED WITH TYLENOL SUPPOSITORY AND PT HAS BEEN AFEBRILE SINCE. NO OTHER COMPLAINTS THIS SHIFT. TURNED Q2HRS AND ORAL CARE DONE NEEDED.
[2023-01-16 05:32] LABS: POC Glucose,Bedside 232 (70-110)
[2023-01-16 05:53] LABS: Basophils # 0.1 K/mm3 (0-0.2); Basophils % 0.3 % (0.1-2.0); Eosinophils # 0.2 K/mm3 (0.0-0.4); Eosinophils % 1.3 % (0.1-12.0); Hematocrit 33.3 % (37.0-47.0); Hemoglobin 10.4 g/dL (12.2-16.2); Lymphocytes # 2.8 K/mm3 (0.7-4.5); Lymphocytes % 16.2 % (10-50); Mean Corpuscular HGB Conc 31.3 g/dL (31.8-35.4); Mean Corpuscular Hemoglobin 25.4 pg (27.0-31.2); Mean Corpuscular Volume 81.2 fl (81-99); Mean Platelet Volume 10.5 fl (7.4-10.4); Monocytes # 0.8 K/mm3 (0.1-1.0); Monocytes % 4.7 % (1.7-9.3); Neutrophils # 13.6 K/mm3 (1.8-7.8); Neutrophils % 77.5 % (37.0-80.0); Platelet Count 162 K/mm3 (142-424); Red Cell Distribution Width 17.2 % (11.5-17.5); White Blood Count 17.6 K/mm3 (4.8-10.8)
[2023-01-16 05:55] LABS: Chloride 115 mmol/L (98-107)
[2023-01-16 05:56] LABS: Potassium 3.2 mmoL/L (3.5-5.1); Sodium 139 mmol/L (136-145)
[2023-01-16 05:59] LABS: Anion Gap 11.2 mEq/L (5-15); Blood Urea Nitrogen 15 mg/dl (7-17); Calcium 7.8 mg/dl (8.4-10.2); Carbon Dioxide 16 mmol/L (22.0-30.0); Creatinine Clearance Estimated 66 mL/min (50-200); Estimated Glomerular Filt Rate 81 ml/min (>60); GFR (African American) 98 ML/MIN (>60); Glucose 228 mg/dl (74-100)
[2023-01-16 06:06] LABS: MANUAL DIFFERENTIAL MANUAL DIFFERENTIAL (MANUAL DIFF)
[2023-01-16 07:52] LABS: Eosinophils % 2 % (0-3); Hypochromasia 1+; Lymphocytes % 16 % (10-50); Monocytes % 5 % (2-9); Neutrophils % 77 % (42-76); Nucleated Red Blood Cells 2; Platelet Estimate Normal; Total Cells Counted 100
--- NOTE | 2023-01-16 08:17 | EXP.ACUTE.PN ---
Subjective *Date: 01/16/23 *Time: 08:17 Interval history: Patient remains alert and somewhat talkative but has not really eaten much. She continues to have low-grade temperature elevations slightly over 100 degrees. White count this morning is slightly elevated over yesterday. Electrolytes reviewed. Medical Exam Vital signs and Labs for Last 24 Hours: Vital Signs Temp Pulse Pulse Resp BP BP Pulse Ox 01/16/23 07:54 98.2 F 109 H 20 130/114 H 99 01/16/23 04:00 70 01/16/23 03:46 98.5 F 79 21 133/70 97 01/16/23 00:00 70 01/16/23 00:00 98.7 F 74 20 113/67 95 01/15/23 20:00 80 01/15/23 20:00 101.2 F H 87 22 148/71 H 97 01/15/23 18:32 99.5 F 01/15/23 16:00 62 01/15/23 12:00 60 01/15/23 15:31 98.0 F 71 18 119/79 97 01/15/23 11:40 98.3 F 74 19 109/63 L 99 Intake and Output 01/15/23 01/16/23 01/16/23 19:59 03:59 11:59 Intake Total 724 / 1441 480 / 1441 237 / 1441 Output Total 0 / 950 750 / 950 200 / 950 Balance 724 / 491 -270 / 491 37 / 491 Intake: Intake, Oral Amount 474 / 1191 480 / 1191 237 / 1191 Intake, Total IV Amount 250 / 250 Ertapenem Sodium 1 gm In 0.9 % 50 / 50 Sodium Chloride 50 ml @ 100 mls /hr IV Q24H [facility] Rx#:[id number] Metronidaz/Sod Chl 500 mg In 200 / 200 100 ml @ 100 mls/hr IV Q6H [facility] Rx#:[id number] Output: Output, Urine Amount 0 / 950 750 / 950 200 / 950 Other: Number of Unmeasured Voids 1 0 1 Number of Bowel Movements 1 1 Weight 192 lb 2 oz Patient Weight 01/16/23 11:59 Weight 192 lb 2 oz Laboratory Results - last 24 hr 01/15/23 11:24: POC Glucose 351 H* 01/15/23 16:47: POC Glucose 427 H* 01/15/23 21:27: POC Glucose 286 H 01/16/23 05:10: POC Glucose 232 H 01/16/23 05:36: WBC 17.6 H D, RBC 4.10 L, Hgb 10.4 L, Hct 33.3 L, MCV 81.2, MCH 25.4 L, MCHC 31.3 L, RDW 17.2, Plt Count 162, MPV 10.5 H, Neut % (Auto) 77.5, Lymph % (Auto) 16.2, [place] % (Auto) 4.7, Eos % (Auto) 1.3, Baso % (Auto) 0.3, Neut # (Auto) 13.6 H, Lymph # (Auto) 2.8, [place] # (Auto) 0.8, Eos # (Auto) 0.2, Baso # (Auto) 0.1, Total Counted 100, Neutrophils % (Manual) 77 H, Lymphocytes % (Manual) 16, Monocytes % (Manual) 5, Eosinophils % (Manual) 2, Nucleated RBCs 2, Platelet Estimate Normal, Hypochromasia 1+ 01/16/23 05:36: Sodium 139, Potassium 3.2 L D, Chloride 115 H, Carbon Dioxide 16 L, Anion Gap 11.2, BUN 15, Creatinine 0.70, Estimated Creat Clear 66, Estimated GFR 81, Est GFR ( Amer) 98, Glucose 228 H, Calcium 7.8 L I & O for Labs for Last 24 Hours: Intake & Output 01/13/23 01/14/23 01/15/23 01/16/23 11:59 11:59 11:59 11:59 Intake Total 3320 / 3320 1220 / 1220 1480 / 1480 1441 / 1441 Output Total 1450 / 1450 2400 / 2400 2550 / 2550 950 / 950 Balance 1870 / 1870 -1180 / -1180 -1070 / -1070 491 / 491 Weight 190 lb 1 oz 192 lb 8 oz 192 lb 5 oz 192 lb 2 oz Comment:: No real change in exam from yesterday. Responsive and alert. Swallows pills and some liquids but really does not eat much. PICC line site looks good. She has a couple of peripheral IVs in her hands. Abdomen is soft. Lea catheter draining clear yellow urine. Lungs clear. Heart rate regular. Assessment and Plan *Assessment and plan (1) Pyelonephritis: Status: Acute Category: Medical Code(s): N12 - Tubulo-interstitial nephritis, not specified as acute or chronic (2) Acute UTI (urinary tract infection): Status: Acute Category: Medical Code(s): N39.0 - Urinary tract infection, site not specified (3) SIRS (systemic inflammatory response syndrome): Status: Acute Category: Medical Code(s): R65.10 - Systemic inflammatory response syndrome (SIRS) of non-infectious origin without acute organ dysfunction (4) PAF (paroxysmal atrial fibrillation): Status: Acute Category: Medical Code(s): I48.0 - Paroxysmal atrial fibrillation (
--- NOTE | 2023-01-16 10:26 | DIET.NUTRFU ---
Addendum entered by Rachelle Prakash RD, LD 01/16/23 14:57: for lunch she consumed Ensure and yogurt, meal intake slightly improving. Original Note: Continues to have poor po intake only consuming 1 glucerna for breakfast, this RD reviewed breakfast selection and today nursing aid did also and she did not want anything except the glucerna. Continues to show some improvement with condition and possible discharge back to [facility] tomorrow. Will continue to encourage and assist with meal intake
[2023-01-16 11:16] LABS: POC Glucose,Bedside 315 (70-110)
[2023-01-16 17:44] LABS: POC Glucose,Bedside 364 (70-110)
--- NOTE | 2023-01-16 17:55 | PC.NURSE ---
Pt is alert and oriented x3. She remains on RA and tolerating well. She's been afib on telemetry. Afebrile the whole shift. Appetite has been slightly better today than yesterday. Glucose has been elevated at 315 and 364 at checks, SSI administered per mar. She's denied any complaints thus far. She is currently resting in bed with her eyes closed.
[2023-01-16 21:19] LABS: POC Glucose,Bedside 354 (70-110)
--- NOTE | 2023-01-16 22:13 | PC.NURSE ---
Made Dr Trinh aware of patient unable to take po medications d/t lethargic.
--- NOTE | 2023-01-16 23:48 | PC.NURSE ---
Notified by front end drupal developer patients heart rate is sustaining 120-140's, patient has chronic afib, upon entering the room patient seemed short of breath, vitals were 123/57, temp 100.0, hr 134, o2 98 on room air. Spoke with Dr White to give patient 5mg of metoprolol IV. prn metoprolol given and prn tylenol given.
[2023-01-17] VITALS (9 sets, daily range): BP systolic 99–138; BP diastolic 41–75; PULSE 71–127; RESP 18–24; TEMP 36.6–37.7; O2SAT 94–98; BMI 34.9
[2023-01-17 04:50] LABS: POC Glucose,Bedside 229 (70-110)
[2023-01-17 05:49] LABS: Basophils # 0.1 K/mm3 (0-0.2); Basophils % 0.4 % (0.1-2.0); Eosinophils # 0.1 K/mm3 (0.0-0.4); Eosinophils % 0.8 % (0.1-12.0); Hematocrit 33.9 % (37.0-47.0); Hemoglobin 10.6 g/dL (12.2-16.2); Lymphocytes # 1.7 K/mm3 (0.7-4.5); Lymphocytes % 9.9 % (10-50); Mean Corpuscular HGB Conc 31.3 g/dL (31.8-35.4); Mean Corpuscular Hemoglobin 25.5 pg (27.0-31.2); Mean Corpuscular Volume 81.7 fl (81-99); Mean Platelet Volume 10.6 fl (7.4-10.4); Monocytes # 0.7 K/mm3 (0.1-1.0); Monocytes % 4.3 % (1.7-9.3); Neutrophils # 14.6 K/mm3 (1.8-7.8); Neutrophils % 84.7 % (37.0-80.0); Platelet Count 177 K/mm3 (142-424); Red Blood Count 4.14 M/mm3 (4.20-5.40); Red Cell Distribution Width 17.4 % (11.5-17.5); White Blood Count 17.3 K/mm3 (4.8-10.8)
--- NOTE | 2023-01-17 05:53 | PC.NURSE ---
paged dr mason regarding patients heart rate jumping up to 130's
[2023-01-17 05:54] LABS: Chloride 117 mmol/L (98-107); MANUAL DIFFERENTIAL MANUAL DIFFERENTIAL (MANUAL DIFF)
[2023-01-17 05:55] LABS: Potassium 3.2 mmoL/L (3.5-5.1); Sodium 142 mmol/L (136-145)
[2023-01-17 05:58] LABS: Anion Gap 11.2 mEq/L (5-15); Blood Urea Nitrogen 16 mg/dl (7-17); Calcium 7.7 mg/dl (8.4-10.2); Carbon Dioxide 17 mmol/L (22.0-30.0); Creatinine Clearance Estimated 65 mL/min (50-200); Estimated Glomerular Filt Rate 97 ml/min (>60); GFR (African American) 118 ML/MIN (>60); Glucose 244 mg/dl (74-100)
--- NOTE | 2023-01-17 05:59 | PC.NURSE ---
Spoke with Dr. White, stated pts blood pressure was 97/53 at this time, heart rate is going up to the 130-140's. orders received to give 2.5mg IV metoprolol one time.
--- NOTE | 2023-01-17 06:27 | PC.NURSE ---
pt would wake up to verbal stimuli, unable to take po medications last night d/t being lethargic. pts heart rate went up to 130's-140's through the night. dr mason was made aware and prn medication was given. patient had a temp of 100.0, prn tylenol given. one episode of diarrhea. pt received iv abx. pt stated no when asked if was in pain. schwab to bsd draining yellow urine with sediment. bed alarm on
[2023-01-17 06:59] LABS: Anisocytosis 1+; Hypochromasia 1+; Lymphocytes % 10 % (10-50); Monocytes % 4 % (2-9); Neutrophils % 86 % (42-76); Platelet Estimate Normal; Total Cells Counted 100
--- NOTE | 2023-01-17 09:07 | CT_ITS ---
FINAL REPORT CLINICAL HISTORY: MS changes FINDINGS: Axial images of the head were obtained without contrast. Coronal reformatted images were also obtained. This study was performed with techniques to keep radiation doses as low as reasonably achievable (ALARA). Individualized dose reduction techniques using automated exposure control or adjustment of mA and/or kV according to the patient''s size were employed. There is generalized age-appropriate atrophy. Periventricular low-attenuation areas are seen consistent with mild chronic ischemic changes. There is no evidence of intracranial hemorrhage or mass. There is no evidence of acute infarct. There is no evidence of shift of the midline structures. No skull abnormality is seen on the bone window images. There is mucosal thickening of multiple sinuses, worst involving the left maxillary sinus. IMPRESSION: Atrophy and mild periventricular chronic ischemic changes. No acute intracranial abnormality identified. Reviewed, Interpreted and Dictated by Luis Armando Damico III, MD Transcribed by Violeta Sweeney Authenticated and [facility]
--- NOTE | 2023-01-17 09:08 | EXP.ACUTE.PN ---
Subjective *Date: 01/17/23 *Time: 09:08 Interval history: Patient's situation is basically unchanged. She has moments of ability to communicate with conversation and is able to drink but has not really eaten well and the nurses have intermittent success getting her to take her medications. She denies pain or shortness of air.. The vital signs remained stable, she did have an episode of tachycardia yesterday evening and was treated with her as needed metoprolol and resolved. Medical Exam Vital signs and Labs for Last 24 Hours: Vital Signs Temp Pulse Pulse Resp BP BP Pulse Ox 01/17/23 08:00 97.9 F 115 H 18 121/69 98 01/17/23 04:00 120 H 01/17/23 04:00 99.3 F 127 H 19 113/57 L 95 01/17/23 00:00 90 01/17/23 00:40 98.9 F 01/17/23 00:00 100 F H 121 H 123/67 94 L 01/16/23 20:00 90 01/16/23 20:00 98.1 F 88 16 133/47 L 98 01/16/23 16:00 90 01/16/23 12:00 80 01/16/23 15:02 98.2 F 77 18 115/70 96 01/16/23 11:24 98.2 F 76 18 132/76 99 Intake and Output 01/16/23 01/17/23 01/17/23 19:59 03:59 11:59 Intake Total 836 / 1076 0 / 1076 240 / 1076 Output Total 0 / 1650 1400 / 1650 250 / 1650 Balance 836 / -574 -1400 / -574 -10 / -574 Intake: Intake, Oral Amount 486 / 726 0 / 726 240 / 726 Intake, Total IV Amount 350 / 350 Calcium Gluconate 2,000 mg In 0 100 / 100 .9 % Sodium Chloride 100 ml @ 60 mls/hr IV ONCE ONE Rx#: [id number] Ertapenem Sodium 1 gm In 0.9 % 50 / 50 Sodium Chloride 50 ml @ 100 mls /hr IV Q24H [facility] Rx#:[id number] Metronidaz/Sod Chl 500 mg In 200 / 200 100 ml @ 100 mls/hr IV Q6H [facility] Rx#:[id number] Output: Output, Urine Amount 0 / 950 700 / 950 250 / 950 Output, Urine Amount (Catheter) 700 / 700 Lea 700 / 700 Other: Number of Unmeasured Voids 1 0 0 Number of Bowel Movements 3 Weight 190 lb 1.6 oz Patient Weight 01/17/23 11:59 Weight 190 lb 1.6 oz Laboratory Results - last 24 hr 01/16/23 11:04: POC Glucose 315 H* 01/16/23 17:29: POC Glucose 364 H* 01/16/23 21:12: POC Glucose 354 H* 01/17/23 04:42: POC Glucose 229 H 01/17/23 05:30: WBC 17.3 H, RBC 4.14 L, Hgb 10.6 L, Hct 33.9 L, MCV 81.7, MCH 25.5 L, MCHC 31.3 L, RDW 17.4, Plt Count 177, MPV 10.6 H, Neut % (Auto) 84.7 H, Lymph % (Auto) 9.9 L, [place] % (Auto) 4.3, Eos % (Auto) 0.8, Baso % (Auto) 0.4, Neut # (Auto) 14.6 H, Lymph # (Auto) 1.7, [place] # (Auto) 0.7, Eos # (Auto) 0.1, Baso # (Auto) 0.1, Total Counted 100, Neutrophils % (Manual) 86 H, Lymphocytes % (Manual) 10, Monocytes % (Manual) 4, Platelet Estimate Normal, RBC Morphology Not Reportable, Hypochromasia 1+, Anisocytosis 1+ 01/17/23 05:30: Sodium 142, Potassium 3.2 L, Chloride 117 H, Carbon Dioxide 17 L, Anion Gap 11.2, BUN 16, Creatinine 0.60, Estimated Creat Clear 65, Estimated GFR 97, Est GFR ( Amer) 118 D, Glucose 244 H, Calcium 7.7 L I & O for Labs for Last 24 Hours: Intake & Output 01/14/23 01/15/23 01/16/23 01/17/23 11:59 11:59 11:59 11:59 Intake Total 1220 / 1220 1480 / 1480 1441 / 1441 1076 / 1076 Output Total 2400 / 2400 2550 / 2550 950 / 950 1650 / 1650 Balance -1180 / -1180 -1070 / -1070 491 / 491 -574 / -574 Weight 192 lb 8 oz 192 lb 5 oz 192 lb 2 oz 190 lb 1.6 oz Comment:: Somnolent, arouses with verbal and tactile stimuli. Is able to give me a couple of intelligible sentences but has a lot of articulation issues and some expressive dysphasia with repetitive communication. Heart rate irregular in the 80s. Lungs have good air movement, abdomen soft, tympanitic and distended as her baseline. Extremities are warm and well-perfused. Lea catheter is draining clear urine. Assessment and Plan *Assessment and plan (1) Pyelonephritis: Status: Acute Category: Medical Code(s): N12 - Tubulo-interstitial nephritis, not specified as acute or chronic (2) Acute UTI (urinary tr
--- NOTE | 2023-01-17 10:03 | EXP.PHA.PN ---
Subjective *Date: 01/17/23 *Time: 10:03 Medical Exam Vital signs and Labs for Last 24 Hours: Vital Signs Temp Pulse Pulse Resp BP BP Pulse Ox 01/17/23 08:00 97.9 F 115 H 18 121/69 98 01/17/23 04:00 120 H 01/17/23 04:00 99.3 F 127 H 19 113/57 L 95 01/17/23 00:00 90 01/17/23 00:40 98.9 F 01/17/23 00:00 100 F H 121 H 123/67 94 L 01/16/23 20:00 90 01/16/23 20:00 98.1 F 88 16 133/47 L 98 01/16/23 16:00 90 01/16/23 12:00 80 01/16/23 15:02 98.2 F 77 18 115/70 96 01/16/23 11:24 98.2 F 76 18 132/76 99 Intake and Output 01/16/23 01/17/23 01/17/23 23:59 07:59 15:59 Intake Total 246 / 1553 0 / 240 240 / 240 Output Total 600 / 2000 1050 / 1050 Balance -354 / -447 -1050 / -810 240 / -810 Intake: Intake, Oral Amount 246 / 1203 0 / 240 240 / 240 Output: Output, Urine Amount 600 / 1300 350 / 350 Output, Urine Amount (Catheter) 700 / 700 Lea 700 / 700 Other: Number of Unmeasured Voids 1 0 Number of Bowel Movements 3 Weight 86.228 kg Patient Weight 01/17/23 23:59 Weight 86.228 kg Laboratory Results - last 24 hr 01/16/23 11:04: POC Glucose 315 H* 01/16/23 17:29: POC Glucose 364 H* 01/16/23 21:12: POC Glucose 354 H* 01/17/23 04:42: POC Glucose 229 H 01/17/23 05:30: WBC 17.3 H, RBC 4.14 L, Hgb 10.6 L, Hct 33.9 L, MCV 81.7, MCH 25.5 L, MCHC 31.3 L, RDW 17.4, Plt Count 177, MPV 10.6 H, Neut % (Auto) 84.7 H, Lymph % (Auto) 9.9 L, [place] % (Auto) 4.3, Eos % (Auto) 0.8, Baso % (Auto) 0.4, Neut # (Auto) 14.6 H, Lymph # (Auto) 1.7, [place] # (Auto) 0.7, Eos # (Auto) 0.1, Baso # (Auto) 0.1, Total Counted 100, Neutrophils % (Manual) 86 H, Lymphocytes % (Manual) 10, Monocytes % (Manual) 4, Platelet Estimate Normal, RBC Morphology Not Reportable, Hypochromasia 1+, Anisocytosis 1+ 01/17/23 05:30: Sodium 142, Potassium 3.2 L, Chloride 117 H, Carbon Dioxide 17 L, Anion Gap 11.2, BUN 16, Creatinine 0.60, Estimated Creat Clear 65, Estimated GFR 97, Est GFR ( Amer) 118 D, Glucose 244 H, Calcium 7.7 L I & O for Labs for Last 24 Hours: Intake & Output 01/14/23 01/15/23 01/16/23 01/17/23 23:59 23:59 23:59 23:59 Intake Total 740 / 840 1964 / 2444 1553 / 1553 240 / 240 Output Total 1925 / 1925 1375 / 1375 1300 / 2000 1050 / 1050 Balance -1185 / -1085 589 / 1069 253 / -447 -810 / -810 Weight 87.317 kg 87.231 kg 87.146 kg 86.228 kg The patient's infection will respond to the chosen ABx?: Yes (K. PNEUMONIAE AND P. MIRABILIS SENSITIVE TO INVANZ, MULTI-DRUG RESISTANCE.) Is the patient receiving the right drug, dose, and route?: Yes Could a more targeted ABx be ordered?: No (URINE CULTURE WITH MDR KLEBSIELLA PNEUMONIAE)
--- NOTE | 2023-01-17 11:46 | PC.NURSE ---
courtesy tech note; rounded on pt, assisted primary tech with Q2H turn. assisted pt with eating, pt denied need to use the bathroom, call light within reach, no further requests at this time. Kamaljit Plummer, SRNA
[2023-01-17 12:00] LABS: POC Glucose,Bedside 278 (70-110)
--- NOTE | 2023-01-17 16:00 | PC.NURSE ---
courtesy tech note; [id number] rounded on pt, pt sleeping at this time, call light within reach, no further requests at this time. K Elian, SRNA
--- NOTE | 2023-01-17 17:29 | PC.NURSE ---
pt alert to self only. responds to verbal stimuli. requires assistance with feeding. she has been lethargic this shift. irregular on tele with hr <100.
[2023-01-17 19:23] LABS: POC Glucose,Bedside 381 (70-110)
[2023-01-17 20:11] LABS: POC Glucose,Bedside 405 (70-110)
[2023-01-18] VITALS (9 sets, daily range): BP systolic 110–147; BP diastolic 60–73; PULSE 65–131; RESP 16–26; TEMP 36.5–37.5; O2SAT 92–98; BMI 35.4
[2023-01-18 05:24] LABS: POC Glucose,Bedside 254 (70-110)
--- NOTE | 2023-01-18 05:44 | PC.NURSE ---
Patient was able to get po meds down tonight, alert to self. receving iv abx. schwab to bsd draining clear urine. received prn metoprolol for heart rate >110. pt had no complaints of pain through the night
--- NOTE | 2023-01-18 08:26 | EXP.ACUTE.PN ---
Subjective *Date: 01/18/23 *Time: 08:26 Interval history: Not much change overnight. Vital signs have been stable. Low-grade fever curve still noted. Patient remains very somnolent and hard to arouse. She will arouse and speak but remains with garbled speech and very very poor p.o. intake Medical Exam Vital signs and Labs for Last 24 Hours: Vital Signs Temp Pulse Pulse Resp BP BP Pulse Ox 01/18/23 07:36 99.5 F 131 H 18 110/70 98 01/18/23 04:00 103 H 01/18/23 04:00 98.1 F 120 H 24 120/66 93 L 01/17/23 20:00 80 01/18/23 00:00 70 01/18/23 00:00 98.3 F 65 26 H 147/73 H 92 L 01/17/23 20:00 99.4 F 110 H 24 138/75 97 01/17/23 16:00 90 01/17/23 15:26 97.8 F 88 18 126/73 97 01/17/23 12:00 71 01/17/23 11:43 97.9 F 80 22 99/41 L 97 Intake and Output 01/17/23 01/18/23 01/18/23 19:59 03:59 11:59 Intake Total 1570 / 1960 150 / 1960 240 / 1960 Output Total 550 / 2550 1600 / 2550 400 / 2550 Balance 1020 / -590 -1450 / -590 -160 / -590 Intake: Intake, Oral Amount 1320 / 1610 50 / 1610 240 / 1610 Intake, Total IV Amount 100 / 100 Metronidaz/Sod Chl 500 mg In 100 / 100 100 ml @ 100 mls/hr IV Q6H [facility] Rx#:[id number] Infusion Intake 250 / 250 Ertapenem Sodium 1 gm In 0.9 % 50 / 50 Sodium Chloride 50 ml @ 100 mls /hr IV Q24H [facility] Rx#:[id number] Metronidaz/Sod Chl 500 mg In 200 / 200 100 ml @ 100 mls/hr IV Q6H [facility] Rx#:[id number] Output: Output, Urine Amount 550 / 2550 1600 / 2550 400 / 2550 Other: Number of Unmeasured Voids 0 0 Number of Bowel Movements 1 Weight 192 lb 8 oz Patient Weight 01/18/23 11:59 Weight 192 lb 8 oz Laboratory Results - last 24 hr 01/17/23 11:47: POC Glucose 278 H 01/17/23 17:21: POC Glucose 381 H* 01/17/23 19:23: POC Glucose 405 H* 01/18/23 05:17: POC Glucose 254 H I & O for Labs for Last 24 Hours: Intake & Output 01/15/23 01/16/23 01/17/23 01/18/23 11:59 11:59 11:59 11:59 Intake Total 1480 / 1480 1441 / 1441 1076 / 1076 1960 / 1960 Output Total 2550 / 2550 950 / 950 1650 / 1650 2550 / 2550 Balance -1070 / -1070 491 / 491 -574 / -574 -590 / -590 Weight 192 lb 5 oz 192 lb 2 oz 190 lb 1.6 oz 192 lb 8 oz Comment:: Somnolent, arouses with verbal and tactile stimuli. Is able to give me a couple of intelligible sentences but has a lot of articulation issues and some expressive dysphasia with repetitive communication. Heart rate irregular in the 80s. Lungs have good air movement, abdomen soft, tympanitic and distended as her baseline. Extremities are warm and well-perfused. Lea catheter is draining clear urine. Assessment and Plan *Assessment and plan (1) Pyelonephritis: Status: Acute Category: Medical Code(s): N12 - Tubulo-interstitial nephritis, not specified as acute or chronic (2) Acute UTI (urinary tract infection): Status: Acute Category: Medical Code(s): N39.0 - Urinary tract infection, site not specified (3) SIRS (systemic inflammatory response syndrome): Status: Acute Category: Medical Code(s): R65.10 - Systemic inflammatory response syndrome (SIRS) of non-infectious origin without acute organ dysfunction (4) PAF (paroxysmal atrial fibrillation): Status: Acute Category: Medical Code(s): I48.0 - Paroxysmal atrial fibrillation (5) Stroke: Status: Acute Category: Medical Code(s): I63.9 - Cerebral infarction, unspecified (6) Diabetes: Status: Acute Category: Medical Code(s): E11.9 - Type 2 diabetes mellitus without complications (7) Staghorn calculus: Status: Acute Category: Medical Code(s): N20.0 - Calculus of kidney (8) Hypokalemia: Status: Acute Category: Medical Code(s): E87.6 - Hypokalemia (9) Hypocalcemia: Status: Acute Category:
[2023-01-18 11:57] LABS: POC Glucose,Bedside 299 (70-110)
[2023-01-18 17:07] LABS: POC Glucose,Bedside 370 (70-110)
--- NOTE | 2023-01-18 18:38 | PC.NURSE ---
pt has times when she is slightly more alert through out the shift but is still disoriented and confused. speech is garbled or pt only moans as a verbal response. generalized edema is unchanged. we have been turning her. pt has tolerated thickened water off and on but seems to pocket applesauce in her cheek. f/c patent @ bedside.
[2023-01-18 21:12] LABS: POC Glucose,Bedside 270 (70-110)
[2023-01-19] VITALS (9 sets, daily range): BP systolic 103–144; BP diastolic 52–90; PULSE 70–116; RESP 17–18; TEMP 36.4–37.9; O2SAT 91–98; BMI 36.1
[2023-01-19 06:07] LABS: POC Glucose,Bedside 342 (70-110)
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
--- NOTE | 2023-01-19 10:32 | PC.NURSE ---
Spoke with Mayela from speech, will come this afternoon for consult
--- NOTE | 2023-01-19 13:02 | PC.NURSE ---
Speech at bedside
--- NOTE | 2023-01-19 13:48 | HMH.SLDYSPHA ---
Speech & Language Evaluation Speech/Language Dysphagia Evaluation Start: 01/19/23 13:11 Freq: ONCE Status: Active Protocol: Document 01/19/23 13:12 TARIKKACY (Rec: 01/19/23 13:48 [id number] Dysphagia Assess/Goals/Plan Assessment Date of Evaluation: 01/19/23 Evaluation Type Initial Certification Assessment/Problems CSE completed per MD order following pocketing concerns. Does Patient Qualify for Service Yes Qualify/Failure Comment Based on CSE results and clinical observation, pt would benefit from skilled speech therapy services 2x/week to address decreased oral sensation and uncoordinated bolus control. Recommendations PHYSICIAN CERTIFICATION: The specified therapy services are required, authorized, and reviewed every 30 days. Pt will be seen # times/week 2 for # weeks 4 Diet Recommendations Pureed Liquid Type Recommendations Normal/Thin SL Swallow Guidelines Assist w/all meals,Alt bite w/ sip thru meal,High aspiration risk,Chk mough for pocketing, Crush meds as allowed*,Oral care pre/post meals,Place food * Crush Meds Crush all meds Dysphagia Swallow Precautions/Strategies Sitting Upright (90 deg) Place Food on Either side of Mouth Plan Anticipate reaching STG in # weeks 2 Anticipate reaching LTG in # weeks 4 Pt/Guardian verbally ack understanding Yes of dx/prognosis/goals G -code Required No STG-Bolus Form/Oral Sensation Use ext finger pressure on cheek to dec 10 pocketing in # trials Oral sensitivity input will be heightned Yes: 75% by providing pressure with spoon when boluses presented. Will eat only pureed foods w/wo cues Yes Halfway Goals Diet puree with Liquids Thin Liquids Education Instructions provided Discussed CSE results, diet recommendations, aspiration precautions and strategies with pt and nursing who expressed understanding. 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
[2023-01-19 15:25] LABS: POC Glucose,Bedside 396 (70-110)
[2023-01-19 17:01] LABS: POC Glucose,Bedside 418 (70-110)
[2023-01-19 20:42] LABS: POC Glucose,Bedside 472 (70-110)
[2023-01-20] VITALS: BP 112/61; PULSE 66; PULSE 70; RESP 20; TEMP 36.9; O2SAT 100
[2023-01-20 04:00] VITALS: BP 120/63; PULSE 120; PULSE 90; RESP 22; TEMP 36.4; O2SAT 97; BMI 35.9
--- NOTE | 2023-01-20 04:26 | PC.NURSE ---
NO ACUTE CHANGES THIS SHIFT. PT HAS SLEPT WELL. LUNG SOUNDS CLEAR. REMAINS ON ROOM AIR. NO COMPLAINTS THIS SHIFT. PT HAS BEEN AFEBRILE THIS SHIFT. PT IS BEING TURNED Q2HRS AND REQUESTED. ORAL CARE DONE NEEDED. SWALLOWING THIN LIQUIDS WITHOUT DIFFICULTY.
[2023-01-20 05:58] LABS: POC Glucose,Bedside 195 (70-110)
[2023-01-20 08:00] VITALS: BP 132/68; PULSE 110; PULSE 87; RESP 20; TEMP 36.9; O2SAT 97
[2023-01-20 09:02] LABS: Basophils % 0.1 % (0.1-2.0); Eosinophils # 0.1 K/mm3 (0.0-0.4); Eosinophils % 0.7 % (0.1-12.0); Hematocrit 35.6 % (37.0-47.0); Hemoglobin 10.6 g/dL (12.2-16.2); Lymphocytes % 15.9 % (10-50); Mean Corpuscular HGB Conc 29.7 g/dL (31.8-35.4); Mean Corpuscular Hemoglobin 25.1 pg (27.0-31.2); Mean Corpuscular Volume 84.5 fl (81-99); Mean Platelet Volume 9.5 fl (7.4-10.4); Monocytes # 0.4 K/mm3 (0.1-1.0); Monocytes % 3.2 % (1.7-9.3); Neutrophils # 10.1 K/mm3 (1.8-7.8); Platelet Count 266 K/mm3 (142-424); Red Blood Count 4.21 M/mm3 (4.20-5.40); Red Cell Distribution Width 18.5 % (11.5-17.5); White Blood Count 12.6 K/mm3 (4.8-10.8)
[2023-01-20 09:06] LABS: Chloride 124 mmol/L (98-107); Sodium 148 mmol/L (136-145)
[2023-01-20 09:09] LABS: Blood Urea Nitrogen 14 mg/dl (7-17); Carbon Dioxide 16 mmol/L (22.0-30.0); Creatinine Clearance Estimated 67 mL/min (50-200); Estimated Glomerular Filt Rate 120 ml/min (>60); GFR (African American) 145 ML/MIN (>60)
[2023-01-20 09:10] LABS: Calcium 7.7 mg/dl (8.4-10.2); Glucose 165 mg/dl (74-100)
--- NOTE | 2023-01-20 09:10 | EXP.DC.SUM ---
General Admission date:: 01/09/23 Discharge date: 01/20/23 HPI HPI HPI: 77-year-old female, long-term resident of local [facility] who has been afflicted with stroke disease in the past and has hemiparesis. She also suffers from the presence of a large staghorn calculus and has had frequent urinary tract infections. She has been seen by urology in [place] who is following her, and is contemplating surgical removal of the calculus, but given her poor surgical candidacy work-up and watchful waiting have been ongoing. Yesterday she had an episode at the halfway where she became somewhat unresponsive and tachycardia. She was brought to the hospital. She was found to be febrile, catheter was placed with a large amount of urinary retention noted and a dirty urine sediment. CT scan showed pneumatosis in the bladder. Lea catheter was maintained and she was admitted for SIRS, UTI issues, urinary retention and mental status changes. Hospital Course Hospital Course Hospital Course: Patient was admitted, initially placed on ceftriaxone for her history of pansensitive UTI. She unfortunately continues to spike fevers. Initial urine culture showed 2 species of gram-negative rods, the initial species was Proteus which was sensitive to ceftriaxone, after 5 days the other species of gram-negative rods sensitivity returned and it was a Klebsiella species that was not sensitive to ceftriaxone and Invanz was started which matched its sensitivity profile as well as that of the Proteus infection. She did well and her fevers improved although she continued to have low-grade fevers throughout her hospital stay. On CT scanning of her abdomen she had some colon inflammation and her staghorn calculi which has been present for several months. Of note urology in [place] has evaluated this and felt that she would really be too high risk of a open abdominal/back surgery to have this removed. My opinion is that it is harboring infection and that she will need to have ongoing antibiotics even after her current antibiotic course is finished. Her main problem during her hospital stay was mental fogginess. She did not do well with physical therapy and also did not eat well. She did have electrolyte disturbances which were replaced on a daily basis as indicated. These improved. After a couple of days of stability with Invanz and her electrolytes improving I talked with her granddaughter who acknowledged that given her stroke history and other medical problems she is probably not going to improve a lot and is considering transitioning to a DNR status with palliative care. I think this is very appropriate. Our current plan will be to transfer her back to the halfway with Invanz 1 g daily for 7 days in her PICC line which was placed in the hospital, and her other medications. We will follow her up on halfway rounds tomorrow, and go over goals of care and CODE STATUS with granddaughter and [facility] nursing staff at that point. Exam Data for Last 24 hours Vital signs and Labs for Last 24 Hours: Temp Pulse Resp BP Pulse Ox 98.4 F 87 20 132/68 97 01/20/23 08:00 01/20/23 08:00 01/20/23 08:00 01/20/23 08:00 01/20/23 08:00 Laboratory Results - last 24 hr 01/19/23 11:33: POC Glucose 396 H* 01/19/23 16:46: POC Glucose 418 H* 01/19/23 20:35: POC Glucose 472 H* 01/20/23 05:46: POC Glucose 195 H 01/20/23 08:45: WBC 12.6 H, RBC 4.21, Hgb 10.6 L, Hct 35.6 L, MCV 84.5, MCH 25.1 L, MCHC 29.7 L, RDW 18.5 H, Plt Count 266 D, MPV 9.5, Neut % (Auto) 80.0, Lymph % (Auto) 15.9, [place] % (Auto) 3.2, Eos % (Auto) 0.7, Baso % (Auto) 0.1, Neut # (Auto) 10.1 H, Lymph # (Auto) 2.0, [place] # (Auto) 0.4, Eos # (Auto) 0.1, Baso # (Auto) 0.0 I & O for Last 24 hours: Intake & Output 01/17/23 01/18/23 01/19/23 01/20/23 11:59 11:59 11:59 11:59 Intake Total 1076 / 1076 1960 / 1960 600 / 600 840 / 840 Output Total 1650 / 1650 3250 / 3250 1000 / 1000 1375 /
[2023-01-20 10:55] LABS: POC Glucose,Bedside 154 (70-110)
--- NOTE | 2023-01-21 12:44 | CARE MANAGER ---
Contacted patient's nurse at [facility]. They state she is not eating much and she is still swollen. The CONSUMER SCIENCE TEACHER saw her this morning and increased her Lasix. They deny any questions or concerns at this time. YENIFER Brock
== END 2023-01-20 11:11 | DRG 690 ==
LOC: ER 01-09 00:29 → 2ND 01-09 01:00
PROVIDERS: Admitting Provider Internal Medicine Adolescent Medicine; Emergency Provider Emergency Medicine; PCP Internal Medicine Adolescent Medicine; Visit Provider Internal Medicine Adolescent Medicine
DX: N10 Acute pyelonephritis (principal); I69.354 Hemiplegia and hemiparesis following cerebral infarction affecting left non-dominant side; I48.0 Paroxysmal atrial fibrillation; E11.9 Type 2 diabetes mellitus without complications; N20.0 Calculus of kidney; E87.6 Hypokalemia; E83.51 Hypocalcemia; E83.42 Hypomagnesemia; Z79.4 Long term (current) use of insulin; Z79.01 Long term (current) use of anticoagulants; Z79.899 Other long term (current) drug therapy; Z86.16 Personal history of COVID-19; E78.00 Pure hypercholesterolemia, unspecified; E66.9 Obesity, unspecified; Z68.36 Body mass index [BMI] 36.0-36.9, adult; I10 Essential (primary) hypertension; K21.9 Gastro-esophageal reflux disease without esophagitis; N20.9 Urinary calculus, unspecified; B96.1 Klebsiella pneumoniae [K. pneumoniae] as the cause of diseases classified elsewhere; R33.9 Retention of urine, unspecified
CPT/HCPCS: 36569; 36415; 51702; 70450; 71045; 74177; 80048; 80053; 81001; 82009; 82150; 82962; 83605; 83690; 83735; 84145; 84443; 84484; 85007; 85025; 85610; 85651; 86140; 87040; 87086; 87088; 87186; 87506; 92610; 93005; 93306; 97162; 97166; 99285; C1751; C9803; J0696; J1335; J2405; J3475; Q9967; U0003; U0005

== ENCOUNTER → 2023-01-28 09:08 | Outpatient (CLI) | payer OTHER, MEDICARE, SELFPAY ==
[2023-01-28 09:38] LABS: Campylobacter Not Detected (NotDetected); Plesimonas Shigalloides, PCR Not Detected (NotDetected); Salmonella, PCR Not Detected (NotDetected); Yersinia Entercolitica, PCR Not Detected (NotDetected)
[2023-01-28 09:39] LABS: Adenovirus F 40/41, stool Not Detected (NotDetected); Astrovirus Not Detected (NotDetected); Cryptosporidium Not Detected (NotDetected); Cyclospora Cayetanesis Not Detected (NotDetected); Entamoeba histolytica Not Detected (NotDetected); Enteroaggregative E coli Not Detected (NotDetected); Enteropathogenic E coli Not Detected (NotDetected); Enterotoxigenic E coli Not Detected (NotDetected); Giardia lamblia Not Detected (NotDetected); Norovirus Not Detected (NotDetected); Rotavirus A Not Detected (NotDetected); Sapovirus Not Detected (NotDetected); Shiga-like toxin E coli Not Detected (NotDetected); Shigella Enterovasive E coli Not Detected (NotDetected); Vibrio Cholerae Not Detected (NotDetected); Vibrio, PCR Not Detected (NotDetected)
[2023-01-28 12:02] LABS: Clostridium Difficile A/B, PCR Detected (NotDetected)
== END ==
PROVIDERS: PCP Internal Medicine Adolescent Medicine; Visit Provider Internal Medicine Adolescent Medicine
DX: R19.5 Other fecal abnormalities (principal); A04.72 Enterocolitis due to Clostridium difficile, not specified as recurrent
CPT/HCPCS: 87506